=== PATIENT | male | born 1940 | race Caucasian/White ===

== ENCOUNTER 2020-08-04 08:06 | Outpatient (REF) | payer MEDICARE, SELFPAY ==
[2020-08-04 11:17] LABS: Hematocrit 43.9 % (42-52); Hemoglobin 14.2 g/dl (14.0-18.0); Mean Corpuscular HGB Conc 32.3 g/dl (31.0-36.0); Mean Corpuscular Hemoglobin 31.7 pg (27.0-33.0); Mean Platelet Volume 10.7 fL (9.4-12.4); Platelet Count 230 X10*3/uL (160-400); Red Blood Count 4.48 X10*6/uL (4.60-5.80); Red Cell Distribution Width 13.3 % (11.0-16.0); White Blood Count 5.6 X10*3/uL (4.8-10.8)
[2020-08-04 11:47] LABS: Alanine Aminotransferase 17 U/L (0-40); Albumin Level 4.4 g/dL (3.5-5.0); Alkaline Phosphatase 59 U/L (39-117); Anion Gap 14 (12-20); Aspartate Amino Transferase 22 U/L (5-37); Bilirubin Total 1.4 mg/dL (0.0-1.0); Blood Urea Nitrogen 17 mg/dL (9-16); Calcium 9.3 mg/dL (8.4-10.2); Carbon Dioxide 27 mmol/L (22-29); Chloride 103 mmol/L (96-108); Cholesterol 187 mg/dL; Estimated Glomerular Filt Rate > 60; Glucose Fasting 92 mg/dL (60-99); HDL Cholesterol 67 mg/dL; LDL Cholesterol Calculated 113 mg/dl; Potassium 4.5 mmol/L (3.3-5.1); Sodium 139 mmol/L (135-145); Total Protein 7.2 g/dL (6.5-8.0); Triglycerides 39 mg/dL
[2020-08-04 12:10] LABS: Prostate Specific Antigen 1.18 ng/mL (<0.05-4.0)
== END 2020-08-04 08:07 | disposition home or self-care (01) ==
LOC: HO.MANLDS 08:06
PROVIDERS: PCP Internal Medicine; Visit Provider Internal Medicine
DX: Z12.5 Encounter for screening for malignant neoplasm of prostate (principal); I10 Essential (primary) hypertension
CPT/HCPCS: 36415; 80053; 80061; 84153; 85027

== ENCOUNTER 2020-09-15 07:33 | Outpatient (REF) | payer MEDICARE, SELFPAY ==
[2020-09-15 11:56] LABS: Vitamin D 25-OH Total 23.1 ng/mL (>30)
[2020-09-15 12:23] LABS: Vitamin B12 362 pg/mL (200-900)
== END 2020-09-15 07:34 | disposition home or self-care (01) ==
LOC: HO.MANLDS 07:33
PROVIDERS: PCP Internal Medicine; Visit Provider Internal Medicine
DX: E53.8 Deficiency of other specified B group vitamins (principal); E55.9 Vitamin D deficiency, unspecified
CPT/HCPCS: 36415; 82306; 82607

== ENCOUNTER 2021-03-13 07:32 | Outpatient (REF) | payer MEDICARE, SELFPAY ==
[2021-03-13 11:49] LABS: Hematocrit 40.2 % (42-52); Hemoglobin 13.1 g/dl (14.0-18.0); Mean Corpuscular HGB Conc 32.6 g/dl (31.0-36.0); Mean Corpuscular Hemoglobin 33.1 pg (27.0-33.0); Mean Corpuscular Volume 101.5 fL (80-98); Mean Platelet Volume 10.3 fL (9.4-12.4); Platelet Count 239 X10*3/uL (160-400); Red Blood Count 3.96 X10*6/uL (4.60-5.80); Red Cell Distribution Width 13.8 % (11.0-16.0); White Blood Count 5.3 X10*3/uL (4.8-10.8)
[2021-03-13 12:06] LABS: Alanine Aminotransferase 23 U/L (0-40); Albumin Level 4.2 g/dL (3.5-5.0); Alkaline Phosphatase 58 U/L (39-117); Anion Gap 13 (12-20); Aspartate Amino Transferase 30 U/L (5-37); Bilirubin Total 1.1 mg/dL (0.0-1.0); Blood Urea Nitrogen 15 mg/dL (9-16); Calcium 9.2 mg/dL (8.4-10.2); Carbon Dioxide 25 mmol/L (22-29); Chloride 105 mmol/L (96-108); Cholesterol 186 mg/dL; Estimated Glomerular Filt Rate > 60; Glucose Fasting 90 mg/dL (60-99); HDL Cholesterol 86 mg/dL; LDL Cholesterol Calculated 92 mg/dl; Potassium 4.6 mmol/L (3.3-5.1); Sodium 138 mmol/L (135-145); Total Protein 6.8 g/dL (6.5-8.0); Triglycerides 42 mg/dL
[2021-03-13 12:34] LABS: Vitamin B12 362 pg/mL (200-900)
[2021-03-13 12:39] LABS: Vitamin D 25-OH Total 32.4 ng/mL (>30)
[2021-03-13 13:09] LABS: Prostate Specific Antigen 1.14 ng/mL (<0.05-4.0)
== END 2021-03-13 07:33 | disposition home or self-care (01) ==
LOC: HO.MANLDS 07:32
PROVIDERS: PCP Internal Medicine; Visit Provider Internal Medicine
DX: Z12.5 Encounter for screening for malignant neoplasm of prostate (principal); I10 Essential (primary) hypertension; E53.8 Deficiency of other specified B group vitamins; E55.9 Vitamin D deficiency, unspecified
CPT/HCPCS: 36415; 80053; 80061; 82306; 82607; 84153; 85027

== ENCOUNTER 2021-10-10 07:42 | Outpatient (REF) | payer MEDICARE, SELFPAY ==
[2021-10-10 11:23] LABS: MANUAL DIFF FLAG NO
[2021-10-10 11:36] LABS: Basophils Absolute Auto 0.1 X10*3/uL (0.0-0.2); Basophils Percent Auto 0.9 % (0-2); Eosinophils Absolute Auto 0.2 X10*3/uL (0.0-0.4); Eosinophils Percent Auto 3.8 % (0-4); Hematocrit 41.1 % (42.0-52.0); Hemoglobin 13.4 g/dl (14.0-18.0); Imm Gran Abs Auto 0.01 X10*3/uL (0.00-0.03); Imm Gran Pct Auto 0.2 % (0.0-0.4); Lymphocytes Absolute Auto 1.6 X10*3/uL (1.2-4.9); Lymphocytes Percent Auto 29.6 % (20-40); Mean Corpuscular HGB Conc 32.6 g/dl (31.0-36.0); Mean Corpuscular Volume 98.1 fL (80.0-98.0); Mean Platelet Volume 10.5 fL (9.4-12.4); Monocytes Absolute Auto 0.4 X10*3/uL (0.1-1.2); Neutrophils Absolute Auto 3.2 x10*3/uL (2.0-8.3); Neutrophils Percent Auto 57.5 % (45-73); Platelet Count 236 X10*3/uL (160-400); Red Blood Count 4.19 X10*6/uL (4.60-5.80); Red Cell Distribution Width 13.7 % (11.0-16.0); White Blood Count 5.5 X10*3/uL (4.8-10.8)
[2021-10-10 12:08] LABS: Prostate Specific Antigen 1.48 ng/mL (<0.05-4.0); Vitamin D 25-OH Total 19.7 ng/mL (>30)
[2021-10-10 12:10] LABS: Alanine Aminotransferase 25 U/L (0-40); Albumin Level 4.1 g/dL (3.5-5.0); Alkaline Phosphatase 52 U/L (39-117); Anion Gap 10 (12-20); Aspartate Amino Transferase 27 U/L (5-37); Bilirubin Total 2.1 mg/dL (0.0-1.0); Blood Urea Nitrogen 14 mg/dL (9-16); Calcium 9.4 mg/dL (8.4-10.2); Carbon Dioxide 27 mmol/L (22-29); Chloride 103 mmol/L (96-108); Cholesterol 186 mg/dL; Estimated Glomerular Filt Rate > 60; Glucose Fasting 94 mg/dL (60-99); HDL Cholesterol 64 mg/dL; LDL Cholesterol Calculated 112 mg/dl; Potassium 4.2 mmol/L (3.3-5.1); Sodium 136 mmol/L (135-145); Total Protein 6.8 g/dL (6.5-8.0); Triglycerides 50 mg/dL
[2021-10-10 12:12] LABS: Vitamin B12 417 pg/mL (200-900)
== END 2021-10-10 07:43 | disposition home or self-care (01) ==
LOC: HO.MANLDS 07:42
PROVIDERS: PCP Internal Medicine; Visit Provider Internal Medicine
DX: Z00.00 Encounter for general adult medical examination without abnormal findings (principal); Z12.5 Encounter for screening for malignant neoplasm of prostate
CPT/HCPCS: 36415; 80053; 80061; 82306; 82607; 84153; 85025

== ENCOUNTER 2022-04-12 07:46 | Outpatient (REF) | payer MEDICARE, SELFPAY ==
[2022-04-12 11:29] LABS: MANUAL DIFF FLAG NO
[2022-04-12 11:40] LABS: Basophils Absolute Auto 0.1 X10*3/uL (0.0-0.2); Basophils Percent Auto 0.8 % (0-2); Eosinophils Absolute Auto 0.3 X10*3/uL (0.0-0.4); Eosinophils Percent Auto 4.5 % (0-4); Hematocrit 38.3 % (42.0-52.0); Hemoglobin 12.7 g/dl (14.0-18.0); Imm Gran Abs Auto 0.02 X10*3/uL (0.00-0.03); Imm Gran Pct Auto 0.3 % (0.0-0.4); Lymphocytes Absolute Auto 1.6 X10*3/uL (1.2-4.9); Lymphocytes Percent Auto 25.7 % (20-40); Mean Corpuscular HGB Conc 33.2 g/dl (31.0-36.0); Mean Corpuscular Volume 99.5 fL (80.0-98.0); Mean Platelet Volume 10.3 fL (9.4-12.4); Monocytes Absolute Auto 0.5 X10*3/uL (0.1-1.2); Monocytes Percent Auto 8.7 % (2-11); Neutrophils Absolute Auto 3.7 x10*3/uL (2.0-8.3); Platelet Count 272 X10*3/uL (160-400); Red Blood Count 3.85 X10*6/uL (4.60-5.80); White Blood Count 6.2 X10*3/uL (4.8-10.8)
[2022-04-12 12:31] LABS: Alanine Aminotransferase 14 U/L (0-40); Albumin Level 4.3 g/dL (3.5-5.0); Alkaline Phosphatase 51 U/L (39-117); Anion Gap 15 (12-20); Aspartate Amino Transferase 24 U/L (5-37); Bilirubin Total 1.5 mg/dL (0.0-1.0); Blood Urea Nitrogen 20 mg/dL (9-16); Calcium 9.5 mg/dL (8.4-10.2); Carbon Dioxide 25 mmol/L (22-29); Chloride 100 mmol/L (96-108); Cholesterol 188 mg/dL; Estimated Glomerular Filt Rate > 60; Glucose Random 92 mg/dL (60-115); HDL Cholesterol 81 mg/dL; LDL Cholesterol Calculated 98 mg/dl; Potassium 4.8 mmol/L (3.3-5.1); Prostate Specific Antigen 1.42 ng/mL (<0.05-4.0); Sodium 135 mmol/L (135-145); Triglycerides 45 mg/dL; Vitamin D 25-OH Total 54.4 ng/mL (>30)
[2022-04-12 12:46] LABS: Vitamin B12 408 pg/mL (200-900)
== END 2022-04-12 07:47 | disposition home or self-care (01) ==
LOC: HO.MANLDS 07:46
PROVIDERS: Visit Provider Internal Medicine
DX: Z13.89 Encounter for screening for other disorder (principal)
CPT/HCPCS: 36415; 80053; 80061; 82306; 82607; 84153; 85025

== ENCOUNTER 2022-04-24 09:38 | Outpatient (REF) | payer MEDICARE, SELFPAY ==
[2022-04-24 11:17] LABS: MANUAL DIFF FLAG NO
[2022-04-24 11:19] LABS: Basophils Absolute Auto 0.1 X10*3/uL (0.0-0.2); Basophils Percent Auto 0.9 % (0-2); Eosinophils Absolute Auto 0.3 X10*3/uL (0.0-0.4); Eosinophils Percent Auto 3.9 % (0-4); Hematocrit 38.2 % (42.0-52.0); Hemoglobin 12.7 g/dl (14.0-18.0); Imm Gran Abs Auto 0.03 X10*3/uL (0.00-0.03); Imm Gran Pct Auto 0.5 % (0.0-0.4); Lymphocytes Absolute Auto 1.5 X10*3/uL (1.2-4.9); Lymphocytes Percent Auto 22.7 % (20-40); Mean Corpuscular HGB Conc 33.2 g/dl (31.0-36.0); Mean Corpuscular Hemoglobin 32.7 pg (27.0-33.0); Mean Corpuscular Volume 98.5 fL (80.0-98.0); Mean Platelet Volume 10.1 fL (9.4-12.4); Monocytes Absolute Auto 0.5 X10*3/uL (0.1-1.2); Monocytes Percent Auto 7.9 % (2-11); Neutrophils Absolute Auto 4.3 x10*3/uL (2.0-8.3); Neutrophils Percent Auto 64.1 % (45-73); Platelet Count 247 X10*3/uL (160-400); Red Blood Count 3.88 X10*6/uL (4.60-5.80); Red Cell Distribution Width 13.1 % (11.0-16.0); White Blood Count 6.6 X10*3/uL (4.8-10.8)
[2022-04-24 12:31] LABS: Iron 80 mcg/dL (45-160); Percent Iron Saturation 23 % (15-50); Total Iron Binding Capacity 343 mcg/dL (228-428); Unsaturated Iron Binding 263 ug/dL
[2022-04-24 12:53] LABS: Ferritin 89 ng/mL (20-250)
== END 2022-04-24 09:39 | disposition home or self-care (01) ==
LOC: HO.MANLDS 09:38
PROVIDERS: Visit Provider Internal Medicine
DX: D64.9 Anemia, unspecified (principal)
CPT/HCPCS: 36415; 82728; 83540; 85025

== ENCOUNTER 2022-10-21 07:31 | Outpatient (REF) | payer MEDICARE, SELFPAY ==
[2022-10-21 11:41] LABS: Hematocrit 39.4 % (42.0-52.0); Hemoglobin 12.9 g/dl (14.0-18.0); Mean Corpuscular HGB Conc 32.7 g/dl (31.0-36.0); Mean Corpuscular Hemoglobin 32.6 pg (27.0-33.0); Mean Corpuscular Volume 99.5 fL (80.0-98.0); Mean Platelet Volume 10.5 fL (9.4-12.4); Platelet Count 253 X10*3/uL (160-400); Red Blood Count 3.96 X10*6/uL (4.60-5.80); Red Cell Distribution Width 13.8 % (11.0-16.0); White Blood Count 5.2 X10*3/uL (4.8-10.8)
[2022-10-21 12:26] LABS: Alanine Aminotransferase 18 U/L (0-40); Alkaline Phosphatase 70 U/L (39-117); Anion Gap 10 (12-20); Aspartate Amino Transferase 22 U/L (5-37); Blood Urea Nitrogen 15 mg/dL (9-16); Calcium 9.2 mg/dL (8.4-10.2); Carbon Dioxide 28 mmol/L (22-29); Chloride 105 mmol/L (96-108); Estimated Glomerular Filt Rate > 60; Glucose Random 62 mg/dL (60-115); Potassium 4.8 mmol/L (3.3-5.1); Sodium 138 mmol/L (135-145); Total Protein 6.5 g/dL (6.5-8.0)
[2022-10-21 12:48] LABS: Vitamin B12 420 pg/mL (200-900); Vitamin D 25-OH Total 31.2 ng/mL (>30)
== END 2022-10-21 07:32 | disposition home or self-care (01) ==
LOC: HO.MANLDS 07:31
PROVIDERS: Visit Provider Internal Medicine
DX: I10 Essential (primary) hypertension (principal); E55.9 Vitamin D deficiency, unspecified
CPT/HCPCS: 36415; 80053; 82306; 82607; 85027

== ENCOUNTER 2022-12-09 14:56 | Outpatient (REF) | payer MEDICARE, SELFPAY | END 2022-12-09 14:57 | disposition home or self-care (01) | LOC: HO.MANLDS 14:56 | PROVIDERS: Visit Provider Physician Assistant | DX: T14.8XXA Other injury of unspecified body region, initial encounter (principal); W57.XXXA Bitten or stung by nonvenomous insect and other nonvenomous arthropods, initial encounter | CPT/HCPCS: 86618; 86666; 86753 ==

== ENCOUNTER 2023-04-16 07:29 | Outpatient (REF) | payer MEDICARE, SELFPAY ==
[2023-04-16 12:43] LABS: MANUAL DIFF FLAG NO
[2023-04-16 12:47] LABS: Basophils Percent Auto 0.9 % (0-2); Eosinophils Absolute Auto 0.3 X10*3/uL (0.0-0.4); Eosinophils Percent Auto 6.6 % (0-4); Hematocrit 40.2 % (42.0-52.0); Hemoglobin 13.5 g/dl (14.0-18.0); Imm Gran Abs Auto 0.02 X10*3/uL (0.00-0.03); Imm Gran Pct Auto 0.4 % (0.0-0.4); Lymphocytes Absolute Auto 1.5 X10*3/uL (1.2-4.9); Lymphocytes Percent Auto 32.3 % (20-40); Mean Corpuscular HGB Conc 33.6 g/dl (31.0-36.0); Mean Corpuscular Hemoglobin 33.1 pg (27.0-33.0); Mean Corpuscular Volume 98.5 fL (80.0-98.0); Mean Platelet Volume 10.3 fL (9.4-12.4); Monocytes Absolute Auto 0.4 X10*3/uL (0.1-1.2); Monocytes Percent Auto 7.5 % (2-11); Neutrophils Absolute Auto 2.5 x10*3/uL (2.0-8.3); Neutrophils Percent Auto 52.3 % (45-73); Platelet Count 251 X10*3/uL (160-400); Red Blood Count 4.08 X10*6/uL (4.60-5.80); Red Cell Distribution Width 13.2 % (11.0-16.0); White Blood Count 4.7 X10*3/uL (4.8-10.8)
[2023-04-16 13:12] LABS: Alanine Aminotransferase 21 U/L (0-40); Albumin Level 4.3 g/dL (3.5-5.0); Alkaline Phosphatase 58 U/L (39-117); Anion Gap 12 (12-20); Aspartate Amino Transferase 35 U/L (5-37); Bilirubin Total 1.2 mg/dL (0.0-1.0); Blood Urea Nitrogen 14 mg/dL (9-16); Calcium 9.9 mg/dL (8.4-10.2); Carbon Dioxide 25 mmol/L (22-29); Chloride 102 mmol/L (96-108); Cholesterol 187 mg/dL (<200); Estimated Glomerular Filt Rate > 60; Glucose Random 70 mg/dL (60-115); HDL Cholesterol 77 mg/dL (>40); LDL Cholesterol Calculated 99 mg/dL (<100); Potassium 4.4 mmol/L (3.3-5.1); Sodium 135 mmol/L (135-145); Total Protein 7.3 g/dL (6.5-8.0); Triglycerides 59 mg/dL (<150)
== END 2023-04-16 07:30 | disposition home or self-care (01) ==
LOC: HO.MANLDS 07:29
PROVIDERS: Visit Provider Internal Medicine
DX: D64.9 Anemia, unspecified (principal); I10 Essential (primary) hypertension
CPT/HCPCS: 36415; 80053; 80061; 85025

== ENCOUNTER 2023-10-14 07:44 | Outpatient (REF) | payer MEDICARE, SELFPAY ==
[2023-10-14 13:16] LABS: MANUAL DIFF FLAG NO
[2023-10-14 13:32] LABS: Basophils Absolute Auto 0.1 X10*3/uL (0.0-0.2); Basophils Percent Auto 0.9 % (0-2); Eosinophils Absolute Auto 0.4 X10*3/uL (0.0-0.4); Eosinophils Percent Auto 6.5 % (0-4); Hematocrit 41.4 % (42.0-52.0); Hemoglobin 13.4 g/dl (14.0-18.0); Imm Gran Abs Auto 0.02 X10*3/uL (0.00-0.03); Imm Gran Pct Auto 0.4 % (0.0-0.4); Lymphocytes Absolute Auto 1.9 X10*3/uL (1.2-4.9); Lymphocytes Percent Auto 34.8 % (20-40); Mean Corpuscular HGB Conc 32.4 g/dl (31.0-36.0); Mean Corpuscular Volume 98.8 fL (80.0-98.0); Mean Platelet Volume 10.6 fL (9.4-12.4); Monocytes Absolute Auto 0.5 X10*3/uL (0.1-1.2); Monocytes Percent Auto 8.9 % (2-11); Neutrophils Absolute Auto 2.6 x10*3/uL (2.0-8.3); Neutrophils Percent Auto 48.5 % (45-73); Platelet Count 225 X10*3/uL (160-400); Red Blood Count 4.19 X10*6/uL (4.60-5.80); Red Cell Distribution Width 13.8 % (11.0-16.0); White Blood Count 5.4 X10*3/uL (4.8-10.8)
[2023-10-14 13:57] LABS: Alanine Aminotransferase 19 U/L (0-40); Albumin Level 4.2 g/dL (3.5-5.0); Alkaline Phosphatase 61 U/L (39-117); Anion Gap 11 (12-20); Aspartate Amino Transferase 24 U/L (5-37); Bilirubin Total 1.5 mg/dL (0.0-1.0); Blood Urea Nitrogen 21 mg/dL (9-16); Calcium 9.6 mg/dL (8.4-10.2); Carbon Dioxide 29 mmol/L (22-29); Chloride 105 mmol/L (96-108); Cholesterol 172 mg/dL (<200); Estimated Glomerular Filt Rate > 60; Glucose Random 87 mg/dL (60-115); HDL Cholesterol 62 mg/dL (>40); LDL Cholesterol Calculated 96 mg/dL (<100); Potassium 4.4 mmol/L (3.3-5.1); Sodium 141 mmol/L (135-145); Total Protein 7.2 g/dL (6.5-8.0); Triglycerides 74 mg/dL (<150)
== END 2023-10-14 07:45 | disposition home or self-care (01) ==
LOC: HO.MANLDS 07:44
PROVIDERS: Visit Provider Internal Medicine
DX: I10 Essential (primary) hypertension (principal); D64.9 Anemia, unspecified
CPT/HCPCS: 36415; 80053; 80061; 85025

== ENCOUNTER 2024-11-24 08:21 | Outpatient (REF) | payer MEDICARE, SELFPAY ==
--- OUTSIDE RECORDS SUMMARY | 2024-11-24 08:28 | XMS_ITS | Data Portability ---
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) MDM MODERATE MUST MEET 2 OUT OF 3 ELEMENTS: PROBLEMS, DATA OR RISK ELEMENT 1: PROBLEMS ADDRESSED 1 OR MORE CHRONIC ILLNESS WITH EXACERBATION OR 2 OR MORE STABLE CHRONIC ILLNESSES OR 1 UNDIAGNOSED NEW PROBLEM OR 1 ACUTE ILLNESS W/SYMPTOMS OR 1 ACUTE COMPLICATED INJURY ELEMENT 2: DATA MUST MEET 1 OF 3 CATEGORIES CATEGORY 1: REVIEW OF PRIOR EXTERNAL NOTES, REVIEW OF RESULTS, ORDERING OF EACH TEST, ASSESSMENT REQUIRING INDEPENDENT HISTORIAN OR CATEGORY 2: INDEPENDENT INTERPRETATION OF TESTS BY ANOTHER PHYSICIAN OR SPECIALIST OR CATEGORY 3: DISCUSSION OF MGT OR TEST INTERPRETATION W/EXTERNAL PHYSICIAN OR SPECIALIST ELEMENT 3: RISK RISK OF COMPLICATIONS AND/OR MORBIDITY OR MORTALITY OF PATIENT MANAGEMENT PROVIDER MUST THOROUGHLY DOCUMENT EACH ELEMENT THAT IS COVERED Not available 04/25/2023 09:48:30 10/28/2023 10/28/2023 [id number] [place] [id number]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) MDM HIGH MUST MEET 2 OUT OF 3 ELEMENTS: PROBLEMS, DATA OR RISK ELEMENT 1: PROBLEMS 1 OR MORE CHRONIC ILLNESS W/SEVERE EXACERBATION, PROGRESSION MAY REQUIRE HOSPITAL LEVEL CARE OR 1 ACUTE OR CHRONIC ILLNESS OR INJURY THAT POSES A THREAT TO LIFE OR BODILY FUNCTION ELEMENT 2: DATA: MUST MEET 2 OF 3 CATEGORIES CATEGORY 1 REVIEW OF PRIOR EXTERNAL NOTES REVIEW OF THE RESULTS ORDERING OF EACH TEST ASSESSMENT REQUIRING INDEPENDENT HISTORIAN(S) CATEGORY 2: INDEPENDENT INTERPRETATION OF TESTS BY ANOTHER PROVIDER/SPECIALI ST CATEGORY 3: DISCUSSION OF MGT OR TEST INTERPRETATION W/EXTERNAL PHYSICIAN/SPECIAL IST ELEMENT 3: RISK HIGH RISK OF MORBIDITY FROM ADDITIONAL DIAGNOSTIC TESTING OR TREATMENT PROVIDER MUST THOROUGHLY DOCUMENT EACH ELEMENT THAT IS COVERED Not available 10/28/2023 15:21:38 11/04/2023 11/04/2023 [id number] [place] [id number]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 REVIEW OF PRIOR EXTERNAL NOTES/RESULTS, ORDERING OF TEST(S) CATEGORY 2. 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) MDM MODERATE MUST MEET 2 OUT OF 3 ELEMENTS: PROBLEMS, DATA OR RISK ELEMENT 1: PROBLEMS ADDRESSED 1 OR MORE CHRONIC ILLNESS WITH EXACERBATION OR 2 OR MORE STABLE CHRONIC ILLNESSES OR 1 UNDIAGNOSED NEW PROBLEM OR 1 ACUTE ILLNESS W/SYMPTOMS OR 1 ACUTE COMPLICATED INJURY ELEMENT 2: DATA MUST MEET 1 OF 3 CATEGORIES CATEGORY 1: REVIEW OF PRIOR EXTERNAL NOTES, REVIEW OF RESULTS, ORDERING OF EACH TEST, ASSESSMENT REQUIRING INDEPENDENT HISTORIAN OR CATEGORY 2: INDEPENDENT INTERPRETATION OF TESTS BY ANOTHER PHYSICIAN OR SPECIALIST OR CATEGORY 3: DISCUSSION OF MGT OR TEST INTERPRETATION W/EXTERNAL PHYSICIAN OR SPECIALIST ELEMENT 3: RISK RISK OF COMPLICATIONS AND/OR MORBIDITY OR MORTALITY OF PATIENT MANAGEMENT PROVIDER MUST THOROUGHLY DOCUMENT EACH ELEMENT THAT IS COVERED Not available 06/11/2024 09:50:32 09/06/2024 09/06/2024 [id number] [place] [id number]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 REVIEW OF PRIOR EXTERNAL NOTES/RESULTS, ORDERING OF TEST(S) CATEGORY 2. ASSESSMENT REQUIRING INDEPENDENT HISTORIAN(S) INCLUDE WHO THE HISTORIAN IS AND RELATION TO PT AND WHY PT IS UNABLE TO GIVE COMPLETE HISTORY ELEMENT 3: RISK (LOW) RISK OF COMPLICATIONS AND/OR MORBIDITY OR MORTALITY OF PATIENT MANAGEMENT PROVIDER MUST THOROUGHLY DOCUMENT ALL OF THE ELEMENTS COVERED Not available 09/06/2024 15:21:07 Plan of Treatment Reminders Order Date Submit Date Provider Last Modified By Organization Details Last Modified Time Details Appointments FOLLOW UP 15 2024 09:30A M DR BARDALES Not available Not available Not available Lab None recorded. Referral podiatris t referral 2023 024 [email or web address] 10 Sachin Will DPM, [address] [facility], [address], [place], [address], 11/25/2023 09:12:55 orthopedi c surgeon referral - note please drain synovial cyst with magnolia injection if possible already has an appt for the 2022 023 [email or web address] [facility], [address] [place], [address], 05/05/2023 08:40:52 Procedures None recorded. Surgeries None recorded. Imaging US, echocardi ogram, transthor acic, complete, w/ color flow 2023 024 hrubner Not available 11/11/2023 09:06:50 US, echocardi ogram, transthor acic, complete, w/ color flow 2022 023 hrubner Not available 05/09/2023 08:54:11 Medication Orders Cialis 5 mg tablet 2023 024 Not available 06/11/2024 10:00:24 mupirocin 2 % topical ointment 2023 024 [id number], [address] [place], [id number], 06/11/2024 09:31:51 Cialis 5 mg tablet 2022 023 [facility], [address], [place], [address], 04/25/2023 09:49:29 Patient TargetsNo targets recorded. Patient Instructions Encounter Date Encounter Id Patient Instructions Last Modified By Organization Details Last Modified Time 04/25/2023 [id number] aortic valve stenosis: care instructions [email or web address] Not available 04/25/2023 09:42:04 Reason for Referral Orthopedic Surgeon Referral for Synovial cyst of right knee seeing for back and his knee already has appt for the 9 note please drain synovial cyst with magnolia injection if possible already has an appt for the Referring Physician: Taco Bardales, Internal Medicine, Encounter Date: 04/25/2023 Signals Intelligence Analysis Manager Referral for Ulce r of toe Referring Physician: Taco Bardales, Internal Medicine, Encounter Date: 10/28/2023 Results Created Date Observation Date Name Description Value Unit Range Abnormal Flag Note LastModifiedBy Organization Detail LastModifiedTime 04/08/2004/05/2023 MRI, lumba r spine , w/o contr ast No observ ation record ed. [address], [address], 04/25/2023 09:32:39 01/14/20 24 01/14/2024 US, echoc ardio gram No observ ation record ed. [address], [address], 06/11/2024 09:42:34 06/08/20 24 06/03/2024 myoca rdial perfu oscar study w/ eject ion fract ion (PROC ) No observ ation record ed. [facility] [address], [place], [address], 06/11/2024 09:42:34 07/16/19 25 07/15/2023 US, echoc ardio gram, trans thora cic, compl ete, w/ color flow No observ ation record ed. [email or web address] [facility] [address], [place], [address], 07/16/2024 10:53:00 07/21/19 25 06/29/2024 cardi ovajuan lou ss asses sment * No observ ation record ed. [email or web address] [facility] - [address], [place], [address], 07/21/2024 12:22:30 Result Notes None recorded. 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 Not Available [facility] 2 22:57:37 Vitamin D deficien cy 66434545 Active 2020 Not Available [facility] 2 22:57:37 Bilatera l osteoart hritis of knees 93065085036 9107 Active 2020 Not Available [facility] 2 22:57:37 Synovial cyst of knee 216533351 Active 2020 Not Available [facility] 2 22:57:37 Gilbert' s syndrome 59790403 Active 2021 Not Available [facility] 2 22:57:37 Synovial cyst of right knee 84148585284 9104 Active 2021 JAY DELUCA [address] [place], [address], [facility] 2 09:42:54 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 Taco Bardales DO [address] [place] [address], [address], [facility] 2 09:18:11 Strain of hamstrin g muscle 21581474657 4 Active 2021 Taco Bardales DO [address] [place], [address], [facility] 2 09:22:06 Anemia 753763393 Active 2021 Taco Bardales, DO [address] [place] [address], [address], [facility] 2 09:26:29 Primary erectile dysfunct ion 082265007 Active 2021 Taco Bardales, DO [address] [place] [address], [address], [facility] 2 09:28:29 Infectio n of tick bite 172869178 Active 2022 FRANCOIS LIND, JAY [address] [place] [address], [address], [facility] 3 14:48:34 Lumbago with sciatica 030684398 Active 2022 Taco Bardales, DO [address] [place] [address], [address], [facility] 3 14:09:38 Lumbago with sciatica 024352000 Active 2022 Taco Bardales, DO [address] [place] [address], [address], [facility] 3 14:09:41 Weakness of right lower limb Active 2022 Taco Bardales DO [address] [place] [address], [address], [facility] 3 23:32:58 Ulcer of toe 367502823 Active 2023 Taco Bardales DO [address] [place] [address], [address], [facility] 4 15:20:16 Osteoart hritis of right knee joint 42427848583 9100 Active 2024 Taco Bardales DO [address] [place] [address], [address], [facility] 5 15:21:23 [facility] hyperten oscar 20799188 Active 2017 Not Available [facility] 22:57:37 Aortic valve stenosis 44490382 Active 2017 severe with systolic murmur Taco Bardales DO [address] [place] [address], [address], [facility] 4 09:53:53 Problem Notes None recorded. Procedures Surgical History Date Name Laterality Status Provider Name and Address Organization Details Recorded Time 025 Corticosteroid Injection completed Taco Bardales DO [address] [place] [address], [address], [facility] 09/06/2024 15:20:29 023 Corticosteroid Injection completed Taco Bardales DO [address] [place] [address], [address], [facility] 09/02/2022 15:41:21 022 Corticosteroid Injection completed Taco Bardales DO [address] [place] [address], [address], [facility] 10/26/2021 10:00:41 021 Corticosteroid Injection completed Taco TravisBecky JesseDO [address] [place] [address], [address], [facility] 05/21/2021 10:01:29 Imaging Results None recorded. Procedure Notes None recorded. Medical Equipment None Reported. Allergies Allergen ID Allergen Name Allergen Category Reaction Reaction Severity Criticality Documentation Date Start Date Code Code System Note Provider Name and Address Organization Details Recorded Time 2177 amlodipin e medicatio n Not available Not available Not available 02/13/2018 39173 RxNorm Carrie raymond [facility] 8 10:08:32 2178 lisinopri l medicatio n cough Not available Not available 02/13/2018 44028 RxNorm Carrei raymond [facility] 8 10:08:46 Medications Name Sig Start Date Stop Date Status Note LastModified by Organization Details LastModified Time losartan 50 mg tablet take 1 tablet by mouth once daily 04/27 completed Not Available Not Available Not Available atorvastati n 20 mg tablet active Not Available Not Available Not Available Keflex 500 mg capsule Take 1 capsule every 6 hours by oral route for 7 days. 04/24 completed Not Available Not Available Not Available aspirin 81 mg tablet,vineet yed release TAKE 1 TABLET BY MOUTH EVERY DAY active Not Available Not Available No t Available tramadol 50 mg tablet TAKE 1 TABLET BY MOUTH EVERY 6 HOURS FOR 7 DAYS 12/09 completed Not Available Not Available Not Available clotrimazol e-betametha sone 1 %-0.05 % topical cream APPLY TOPICALLY TO THE AFFECTED AREA TWICE DAILY FOR UP TO 2 WEEKS 10/19 completed Not Available Not Available Not Available halobetasol propionate 0.05 % topical cream APPLY THIN LAYER TOPICALLY TO THE AFFECTED AREA EVERY DAY. DO NOT EXCEED 50 GM EVERY WEEK OR 2 WEEKS DURATION 10/30 completed Not Available Not Available Not Available bisacodyl 5 mg tablet,vineet yed release TAKE 4 TABLETS WITH 8 OZ OF CLEAR LIQUIDS. 10/22 completed Not Available Not Available Not Available mupirocin 2 % topical ointment APPLY SMALL AMOUNT TOPICALLY TO THE AFFECTED AREA THREE TIMES DAILY 06/11 completed Not Available Not Available Not Available ketoconazol e 2 % topical cream Apply 1 applicati on every day by topical route for 15 days. 04/27 completed Not Available Not Available Not Available losartan 100 mg tablet TAKE 1 TABLET DAILY active Not Available Not Available No t Available doxycycline hyclate 100 mg tablet TAKE 1 TABLET BY MOUTH TWICE DAILY 04/25 completed Not Available Not Available Not Available Cialis 5 mg tablet Take 1 tablet every day by oral route for 90 days. 2023 active Not Available Not Available Not Avai lable ibuprofen prn 04/24 completed Not Available Not Available Not Available peg 3350-electr olytes 236 gram-22.74 gram-6.74 gram-5.86 gram solution MIX AND DRINK DIRECTED 10/22 completed Not Available Not Available Not Available Fluad 2016- 65yr up(PF)45 mcg(15 mcgx3)/0.5 mL intramuscul ar syringe 04/24 completed Not Available Not Available Not Available Fluzone High-Dose Quad (PF) 240 mcg/0.7 mL IM syringe ADM 0.7ML IM UTD 08/14 completed Not Available Not Available Not Available Vitals Date Recorded Body height Body mass index (BMI) Body weight Heart rate Respiratory rate Oxygen saturation Oxygen saturation in Arterial blood by Pulse oximetry Systolic blood pressure Diastolic blood pressure Provider Name and Address Organization Details Last Updated DateTime 4 175.26 cm 26.2 kg/m2 97940.6 5 g 94 /min 16 /min 97 % 97 % 144 mm[Hg] 88 mm[Hg] Michael Blackmon [facility] 4 14:55:12 Date Recorded Body height Body mass index (BMI) Body weight Heart rate Oxygen saturation Oxygen saturation in Arterial blood by Pulse oximetry Systolic blood pressure Diastolic blood pressure Provider Name and Address Organization Details Last Updated DateTime 3 167.64 cm 28.9 kg/m2 86782.0 3 g 63 /min 98 % 98 % 158 mm[Hg] 62 mm[Hg] Anna Johnston [facility] 3 09:18:38 Date Recorded Systolic blood pressure Diastolic blood pressure Provider Name and Address Organization Details Last Updated DateTime 06/11/2024 132 mm[Hg] 78 mm[Hg] Taco Bardales, DO [address] [place] [address], [place], [address], [facility] 06/11/2024 09:43:26 Date Recorded Body height Body mass index (BMI) Body weight Heart rate Oxygen saturation Oxygen saturation in Arterial blood by Pulse oximetry Systolic blood pressure Diastolic blood pressure Provider Name and Address Organization Details Last Updated DateTime 4 175.26 cm 27 kg/m2 13403.4 g 76 /min 98 % 98 % 162 mm[Hg] 82 mm[Hg] Michael Blackmon [facility] 4 09:33:09 Social History Question Answer Notes LastModified by Organizat ion Details LastModified Time Tobacco Smoking Status Former Smoker Quit [address] [facility] 06/11/2024 09:31:53 What Is Your Level Of Caffeine Consumption? None [id number] Information not available 04/25/2020 What Was The Date Of Your Most Recent Tobacco Screening? 06/11/2024 [email or web address] Information not available 06/11/2024 How Many Years Have You Smoked Tobacco? 15 [id number] Information not available 04/25/2020 Sex: Unknown Functional Status Question Answer Note LastModified by Organizat ion Details LastModified Time What is your level of alcohol consumption? Moderate 3 beers per day [id number] Information not available 04/25/2020 What is your exercise level? Occasional walking [id number] Information not available 04/25/2020 Mental Status None recorded. Family History Nothing Reported. Medical History No medical history recorded. Immunizations Vaccine Type Date Status Note Provider Nam e and Address Organization Details Recorded Time COVID-19, mRNA, LNP-S, PF, 30 mcg/0.3 mL dose 1 completed Not Available [facility] 01/09/2022 22:57:37 Influenza, split virus, quadrivalent, preservative 1 completed Not Available [facility] 01/09/2022 22:57:37 COVID-19, mRNA, LNP-S, PF, 30 mcg/0.3 mL dose 2 completed Not Available [facility] 01/09/2022 22:57:37 Influenza, split virus, quadrivalent, preservative 8 completed Not Available [facility] 01/09/2022 22:57:37 Pneumococcal conjugate PCV 13 6 completed Not Available [facility] 01/09/2022 22:57:37 Influenza, split virus, quadrivalent, preservative 2 completed Taco Bardales DO [address] [place] [address], [address], [facility] 04/24/2022 08:54:46 COVID-19, mRNA, LNP-S, PF, 30 mcg/0.3 mL dose 2 completed Taco Bardales DO [address] [place] [address], [address], [facility] 04/24/2022 08:54:59 Influenza, split virus, quadrivalent, preservative 9 completed Not Available [facility] 01/09/2022 22:57:37 Influenza, split virus, quadrivalent, preservative 0 completed Not Available [facility] 01/09/2022 22:57:37 COVID-19, mRNA, LNP-S, PF, 30 mcg/0.3 mL dose 1 completed Not Available [facility] 01/09/2022 22:57:37 COVID-19, mRNA, LNP-S, PF, 30 mcg/0.3 mL dose 1 completed Not Available [facility] 01/09/2022 22:57:37 Past Encounters Encounter ID Performer Location Encounter Start Date Encounter Closed Date Diagnosis/Indication Diagnosis SNOMED-CT Code Diagnosis ICD10 Code Diagnosis Note [id number] Taco Bardales DO [facility] [address] [facility], [place] [address] 01/06/2018 11:09:27 01/06/2018 12:06:09 Heart murmur 72001855 R01.1 presumably new, not previously documented Edema of foot 707105804 R60.0 ddx: clot, cellulitis , gout, OA response to NSAIDS points to gout/oa, uric acid was added to d-dimer lab written out as computer was frozen and was unable to order during the visit. rest/ice/n saids/comp ression for ongoing foot swelling Cellulitis of lower limb 788159044 L03.119 possible cellulitis , though mild likely entry would be nail fungus as there are no visible foot lesions will treat with keflex to ere on the side of caution and will work up other caues of left foot swelling Essential hypertension 75172009 I10 elevated today even after recheck, will recheck at f/u visit [id number] Taco Bardales DO [facility] [address] [facility], [place] [address] 04/24/2018 11:07:47 04/24/2018 12:11:30 Adult health examination 133503192 Z00.00 doing great cont to remain active no major issues still walking Active or passive immunization 710982055 Z23 recc shingrix [id number] Taco Bardales DO [facility] [address] [facility], [place] [address] 10/26/2018 09:55:51 10/26/2018 10:21:06 Essential hypertension 05940440 I10 bp is goood no isssues at home readings Aortic valve stenosis 60 591243 I35.0 will cont to monitor and plan on getting a repeat echo later in the year [id number] Taco Bardales DO [facility] [address] [facility], [place] [address] 03/26/2019 09:53:03 03/26/2019 12:42:00 Pre-surgery evaluation 757566637 Z01.818 Bilateral cataracts 9572 2004 H26.9 generally low risk, has some mildly elevated BP but we will increase his med and recheck in a month he is cleared for his cataract procedure Essential hypertension 47743157 I10 diastolic mildly elevated, will increase his BP med and recheck next month Aortic valve stenosis 60 357514 I35.0 stable [id number] Taco Bardales DO [facility] [address] [facility], [place] [address] 04/27/2019 09:00:33 04/27/2019 10:04:10 Adult health examination 361537887 Z00.00 doing great cont to remain active cont to walk daily [id number] Taco Bardales DO [facility] [address] [facility], [place] [address] 07/02/2019 09:01:29 07/02/2019 09:54:24 Essential hypertension 67762865 I10 bp is good no issues at home readings Has dropped 7lb and reduced alcohol dramatical ly and improved Spinal ade nosis in cervical region 57330746 M48.02 No neuro sx, occasional pain Vitamin D deficiency 347 42451 E55.9 Slightly deficient rec 1000 IU OTC for 4 weeks Cobalamin deficiency 190 400283 E53.8 B12 was 184 with no megaloblas tic/macroc ytic anemia on CBC recc B12 OTC and will recheck 1 mo [id number] Taco Bardales DO [facility] [address] [facility],[place] [address] 06/28/2020 09:25:51 06/28/2020 11:07:27 Aortic valve stenosis 47267177 I35.0 will cont to monitor and plan on getting a repeat echo later in the year Essential hypertension 98859354 I10 bp is good no issues at home readings Spinal ade nosis in cervical region 87092505 M48.02 No neuro sx, occasional pain [id number] [address] [facility] [address] 08/14/2020 11:03:58 08/14/2020 14:09:58 Essential hypertension 29198790 I10 bp is bouncing around again not taking other otc meds not changing his diet or activity rleates is compliant with meds Cobalamin deficiency 190 898563 E53.8 will need to rechk and see if b12 levels improve Vitamin D deficiency 347 05735 E55.9 Slightly deficient rec 1000 IU OTC for 4 weeks Aortic valve stenosis 60 636365 I35.0 will cont to monitor and plan on getting a repeat echo later in the year Synovial c yst of right knee 3376620007 27498 M71.21 [id number] [facility] [address] [facility],[place] [address] 09/22/2020 09:40:02 09/22/2020 11:00:51 Aortic valve stenosis 28475988 I35.0 echo is excellent will repeat in 2 years Essential hypertension 30511269 I10 bp is much better with less beer intake encouraged to cont but he says he wont fully stop Synovial cyst of knee 24 4379639 M71.21 we will cont to follow he will tell me if its bothering enough to get an ortho eval Cobalamin deficiency 190 116012 E53.8 b 12 was 362 will cont b12 supp for now and see if this drops off in the future necessitat ing inj Vitamin D deficiency 347 08781 E55.9 Slightly deficient rec 1000 IU OTC for 4 weeks then stop level 26 [id number] [facility] [address] [facility] on [place] [address] 04/20/2021 09:40:12 04/20/2021 10:21:14 Essential hypertension 56247121 I10 bp is much better with less beer intake encouraged to cont but he says he wont fully stop Vitamin D deficiency 347 73492 E55.9 Slightly deficient rec 1000 IU OTC for 4 weeks then stop level 26 Bilateral osteoarthritis of knees 4182960749 64504 M17.0 he will opt for a kenalog inj to the right kneewe will order and get him in Spinal ade nosis in cervical region 83190481 M48.02 No neuro sx, occasional pain [id number] Taco Bardales [facility] [address] [facility],[place] [address] 05/21/2021 09:47:25 05/21/2021 10:21:02 Bilateral osteoarthritis of knees 2018278442 87459 M17.0 he will opt for a kenalog inj to the right kneeand he tolerated inj without issue Primary er ectile dysfunction 437247864 N52.9 10505 Taco Bardales [facility] [address] [facility],[place] [address] 10/19/2021 09:26:59 10/19/2021 11:05:32 Essential hypertension 98532801 I10 bp is much better with less beer intake still bounces around diastolic is excellenth e will cont to check at home Vitamin D deficiency 347 12695 E55.9 Slightly deficient rec 1000 IU OTC for 4 weeks then stop level 17 Active or passive immunization 786240521 Z23 advised due for Tdap and second pneumonia. ..insuranc e wont cover the shingles shot he has checked with the pharmacy Gilbert's syndrome 61668 000 E80.4 reassuranc e 77524 Taco Bardales [facility] [address] [facility],[place] [address] 10/26/2021 09:40:26 10/26/2021 10:09:52 Bilateral osteoarthritis of knees 1912899701 18719 M17.0 he will opt for a kenalog inj to the right kneeand he tolerated inj without issue 00656 FRANCOIS LIND [facility] [address] [facility],[place] [address] 01/25/2022 09:28:06 01/25/2022 09:54:14 Synovial cyst of right knee 9459447783 52852 M71.21 will monitor for now Bilateral osteoarthritis of knees 5315992853 10218 M17.0 stable with inj Essential hypertension 79909152 I10 labile 16657 Taco Bardales DO [facility] [address] [facility],[place] [facility] [place] [address] 04/24/2022 08:48:59 04/24/2022 09:49:05 Essential hypertension 51245109 I10 bp is much better with less beer intake still bounces around diastolic is excellenth e will cont to check at home Vitamin D deficiency 347 96496 E55.9 Slightly deficient rec 1000 IU OTC for 4 weeks then stop level 17 Cobalamin deficiency 190 544045 E53.8 b 12 was 362 will cont b12 supp for now and see if this drops off in the future necessitat ing inj Advance care planning 71 1919320 Z71.89 done Active or passive immunization 346155099 Z23 patient advised he is due for flu shot, tdap, pneu 23 & shingles 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,[place] [facility] [place] [address] 09/02/2022 15:13:06 09/02/2022 16:43:10 Synovial cyst of knee 608612570 M71.21 we will cont to follow he will tell me if its bothering enough to get an ortho evalcort inject well tolerated Essential hypertension 98025179 I10 bp is much better with less beer intake still bounces around diastolic is excellenth e will cont to check at home 66463 Taco Bardales DO [facility] [address] [facility],[place] [address] 10/30/2022 08:55:41 10/30/2022 11:50:33 Spinal stenosis in cervical region 32607057 M48.02 No neuro sx, occasional pain Aortic valve stenosis 60 647718 I35.0 echo is excellent will repeat in 2 years Essential hypertension 07085265 I10 bp is much better with less beer intake diastolic is excellenth e will cont to check at home 76844 Taco Bardales [facility] [address] [facility],[place] [address] 12/09/2022 14:18:36 12/09/2022 15:27:12 Infection of tick bite 034050169 W57.XXXA agreed to lab work up for the bug bites (tick specifical ly)it does look like a bit on the back of his leginflame d red spot on the back of the right thigh classic symptoms for tick borne illnesswil l not delay treatment and start on doxy for the next 30 days 58823 Taco Bardales [facility] [address] [facility],[place] [address] 12/20/2022 09:44:00 12/20/2022 12:39:05 Synovial cyst of right knee 1833426282 26592 M71.21 agreed to US knee to confirm diagnosis of Friedman's Cyst Infection of tick bite 060412693 W57.XXXA will request lab work since it is not back yet [id number] Taco Bardales [facility] [address] [facility] on [address],[place] [address] 04/25/2023 09:10:34 04/25/2023 11:54:08 Cobalamin deficiency 238222555 E53.8 b 12 was 362 will cont b12 supp for now and see if this drops off in the future necessitat ing inj Essential hypertension 86644948 I10 bp is much better with less beer intake diastolic is excellenth e will cont to check at home Synovial c yst of right knee 6318633813 15836 M71.21 relates the cbd salve seems to help a bit but truly needs drainage and a magnolia injection Aortic valve stenosis 60 119723 I35.0 echo is excellent will repeat in 2 years Primary er ectile dysfunction 307744104 N52.9 [id number] Taco Bardales [facility] [address] [facility], [place] [address] 10/28/2023 14:46:32 10/28/2023 16:53:56 Vitamin D deficiency 04380615 E55.9 Slightly deficient rec 1000 IU OTC for 4 weeks then stop level 17 Essential hypertension 64708932 I10 bp is much better with less beer intake diastolic is excellenth e will cont to check at home Depression screening 171 706260 Z13.31 Negative Screening Lumbago with sciatica 20 8377759 M54.41 now resolved doing well Moderate a ortic valve stenosis 825625827 I35.0 needs echo Ulcer of toe 168255813 L 97.509 504116 Taco Bardales [facility] [address] [facility],[place] [address] 11/04/2023 10:12:56 11/04/2023 10:30:06 Synovial cyst of knee 579595019 M71.21 we will cont to followcort inject well tolerated [id number] Taco Bardales [facility] [address] [facility],[place] [address] 06/11/2024 09:25:26 06/11/2024 10:03:39 Depression screening 749499290 Z13.31 Negative Screening Aortic valve stenosis 60 472849 I35.0 seen by cardiology and is getting prepped for an aortic valve replacemen t Essential hypertension 66393450 I10 bp is much better with less beer intake diastolic is excellenth e will cont to check at home Gilbert's syndrome 84356 000 E80.4 reassuranc e Primary er ectile dysfunction 339716182 N52.9 [id number] Taco Bardales [facility] [address] [facility] on [address],[place] [address] 09/06/2024 14:39:05 09/06/2024 15:26:32 Osteoarthritis of right knee joint 8114212281 28453 M17.11 cortisone inj well done Health Concerns Section Related Observation LastModified by Organization Detai ls LastModified Time None Recorded Concern Status LastModified by Organization Details LastModified Time None Recorded Advance Directives Directive None Recorded Payers Encounter Date Sequence Insurance Name Policy Number Policy Paige Covered Member ID Paige Member ID Guarantor Name 04/25/2023 1 [place] [employer] [place] Jaron Bowersos [id number] Jaron Bowersos 04/25/2023 2 [place] [id number] Jaron Bowersos [id number] Jaron Bowersos 10/28/2023 1 [place] Jaron Bowersos [id number] Jaron Hollis Pinkos 10/28/2023 2 [place] [id number] Jaron Bowersos [id number] Jaron Bowersos 11/04/2023 1 [place] Jaron Bowersos [id number] 6 Jaron Hollis Pinkos 11/04/2023 2 [place] [id number] Jaron Bowersos [id number] Jaron Bowersos 06/11/2024 1 [place] Jaron Bowersos [id number] 6 Jaron Bowersos 06/11/2024 2 [place] [id number] Jaron Bowersos [id number] 13 Jaron Bowersos 09/06/2024 1 [place] Jaron Bowersos [id number] 6 Jarno Hollis Pinkos 09/06/2024 2 [place] [id number] Jaron Bowersos [id number] Jaron Guzmán Notes Date Note Type Note Provider Name and Address Organization Details Recorded Time 3 text/htm l relates that he is having increased swelling in the knee amd os very sore overall bp at home is running ok occasionally is highbp to day 150/62 Taco Bardales, DO [address] [facility], [place], [address], [facility] 04/25/2023 11:15:45 4 text/htm l Care Management - HypertensionReported bypatient.Prognosis:expe cted outcome: stabilize; prognosis: good Self Care:last visit nov Associated Symptoms:calf muscle cramps here for rechk and is doing okand relates that he did great with [place] and now longer has back painalso had his foot sore and this was corrected and is doing wellnote he had an echo ordered last apr and he was never called never donebps have been a bit all over relates that his bp machine is good Taco Bardales DO [address] [place], [address], [facility] 10/28/2023 15:23:05 4 text/htm l here for magnolia inj Taco Bardales DO [address] [place], [address], [facility] 11/04/2023 10:29:52 4 text/htm l Care Management - HypertensionReported bypatient.Self Care:not under emotional stress Severity:symptoms are improving; does not interfere with daily activities Associated Symptoms:no dizziness; no lightheadedness; no chest pain; no shortness of breath; no palpitations; no edema; no calf muscle cramps; no blurred vision; no confusion; no headaches; no fatigue here for rechkdoing well overall relates that his bp jumps around at timesfeels well overallrelates that he is having more exertional dyspnea than he has in the past Taco Bardales DO [address] [place], [address], [facility] 06/11/2024 10:00:36 5 text/htm l here for magnolia inj right knee last 9 mo Taco Bardales DO [address] [place], [address], [facility] 09/06/2024 15:22:06
[2024-11-24 13:02] LABS: MANUAL DIFF FLAG NO
[2024-11-24 13:07] LABS: Basophils Percent Auto 0.6 % (0-2); Eosinophils Absolute Auto 0.3 X10*3/uL (0.0-0.4); Eosinophils Percent Auto 4.3 % (0-4); Hematocrit 35.9 % (42.0-52.0); Hemoglobin 11.6 g/dl (14.0-18.0); Imm Gran Abs Auto 0.04 X10*3/uL (0.00-0.03); Imm Gran Pct Auto 0.6 % (0.0-0.4); Lymphocytes Absolute Auto 1.5 X10*3/uL (1.2-4.9); Lymphocytes Percent Auto 22.5 % (20-40); Mean Corpuscular HGB Conc 32.3 g/dl (31.0-36.0); Mean Corpuscular Hemoglobin 32.7 pg (27.0-33.0); Mean Corpuscular Volume 101.1 fL (80.0-98.0); Mean Platelet Volume 10.4 fL (9.4-12.4); Monocytes Absolute Auto 0.5 X10*3/uL (0.1-1.2); Monocytes Percent Auto 7.8 % (2-11); Neutrophils Absolute Auto 4.4 x10*3/uL (2.0-8.3); Neutrophils Percent Auto 64.2 % (45-73); Platelet Count 300 X10*3/uL (160-400); Red Blood Count 3.55 X10*6/uL (4.60-5.80); Red Cell Distribution Width 14.5 % (11.0-16.0); White Blood Count 6.8 X10*3/uL (4.8-10.8)
[2024-11-24 15:32] LABS: Alanine Aminotransferase 17 U/L (0-40); Albumin Level 4.3 g/dL (3.5-5.0); Alkaline Phosphatase 61 U/L (39-117); Anion Gap 12 (12-20); Aspartate Amino Transferase 37 U/L (5-37); Bilirubin Total 1.6 mg/dL (0.0-1.0); Blood Urea Nitrogen 22 mg/dL (9-16); Calcium 9.3 mg/dL (8.4-10.2); Carbon Dioxide 23 mmol/L (22-29); Chloride 105 mmol/L (96-108); Cholesterol 126 mg/dL (<200); Estimated Glomerular Filt Rate > 60; Glucose Random 88 mg/dL (60-115); HDL Cholesterol 57 mg/dL (>40); LDL Cholesterol Calculated 61 mg/dL (<100); Sodium 135 mmol/L (135-145); Triglycerides 42 mg/dL (<150)
== END 2024-11-24 08:22 | disposition home or self-care (01) ==
LOC: HO.MANLDS 08:21
PROVIDERS: Visit Provider Internal Medicine
DX: I10 Essential (primary) hypertension (principal); D64.9 Anemia, unspecified
CPT/HCPCS: 36415; 80053; 80061; 85025

== ENCOUNTER 2024-11-26 10:11 | Outpatient (REF) | payer MEDICARE, SELFPAY ==
--- OUTSIDE RECORDS SUMMARY | 2024-11-26 10:58 | XMS_ITS | Continuity of Care Document ---
Author Organization [place] - [facility], [facility] Address [address] [place] [address] [place] [address] Assessment Encounter Date Assessment Date Assessment LastModified by Organization Details LastModified Time 11/26/2024 11/26/2024 [id number] or [id number] (PRINTING TABLE HAND) MDM HIGH MUST MEET 2 OUT OF [...] THOROUGHLY DOCUMENT EACH ELEMENT THAT IS COVERED The patient presented to their appointment today for multiple concerns requiring moderate to high-level decision making and took over 40-45 minutes for an adequate and appropriate history, exam, assessment and treatment plan. This appointment was done with an established patient. Not available 11/26/2024 10:09:48 Plan of Treatment Reminders Order Date Submit Date Provider Last Modified By Organization Details Last Modified Time Details Appointments FOLLOW UP 15 2024 09:30A M DR BARDALES Not available Not available Not available Lab vitamin B12 + folate, serum or blood 2024 025 [facility], [address] [place] [address], [place], [address], 11/26/2024 10:14:59 Referral None recorded. Procedures None recorded. Surgeries None recorded. Imaging MRI, lumbar spine, w/o contrast 2024 025 [facility], [address] [facility], [place], [address], 11/26/2024 10:08:12 Medication Orders None recorded. Patient TargetsNo targets recorded. Patient Instructions Encounter Date Encounter Id Patient Instructions Last Modified By Organization Details Last Modified Time 11/26/2024 [id number] lumbar spinal stenosis: care instructions Not available 11/26/2024 10:07:05 anemia: care instructions Not available 11/26/2024 10:08:13 aortic valve stenosis: care instructions Not available 11/26/2024 10:07:05 Reason for Referral None Reported. Problems Name Problem SNOMED Code Status Onset Date Resolution Date Notes Provider Name and Address Organization Details Recorded Time Spinal stenosis in cervical region 61318855 Active 2017 Not Available [facility] 2 22:57:37 Cellulit is 824433667 Active 2017 right foot/leg Not Available [facility] 2 22:57:37 Cobalami n deficien cy 118700631 Active 2020 Not Available [facility] 2 22:57:37 Vitamin D deficien cy 45059367 Active 2020 Not Available [facility] 2 22:57:37 Bilatera l osteoart hritis of knees 22093849229 9107 Active 2020 Not Available [facility] 2 22:57:37 Synovial cyst of knee 294788493 Active 2020 Not Available [facility] 2 22:57:37 Gilbert' s syndrome 66084688 Active 2021 Not Available [facility] 2 22:57:37 Synovial cyst of right knee 07048455485 9104 Active 2021 JAY DELUCA [address] [place], [address], [facility] 09:42:54 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 Taco Bardales DO [address] [place] [address], [address], [facility] 2 09:18:11 Strain of hamstrin g muscle 80691749995 4 Active 2021 Taco AngyBecky Bardales, DO [address] [place] [address], [address], [facility] 2 09:22:06 Anemia 526224222 Active 2021 Taco AngyBecky Bardales, DO [address] [place] [address], [address], [facility] 2 09:26:29 Primary erectile dysfunct ion 782286009 Active 2021 Taco Bardales, DO [address] [place] [address], [address], [facility] 2 09:28:29 Infectio n of tick bite 084916556 Active 2022 JAY DELUCA [address] [place] [address], [address], [facility] 3 14:48:34 Lumbago with sciatica 527711528 Active 2022 Taco Bardales, DO [address] [place] [address], [address], [facility] 3 14:09:38 Lumbago with sciatica 790830791 Active 2022 Taco Badrales, DO [address] [place] [address], [address], [facility] 3 14:09:41 Weakness of right lower limb Active 2022 Taco Bardales DO [address] [place] [address], [address], [facility] 3 23:32:58 Ulcer of toe 370479707 Active 2023 Taco Bardales, DO [address] [place] [address], [address], [facility] 4 15:20:16 Osteoart hritis of right knee joint 62318079884 9100 Active 2024 Tcao Bardales DO [address] [place] [address], [address], [facility] 5 15:21:23 Retroper itoneal hemorrha ge 30240447 Active 2024 Taco Bardales DO [address] [place] [address], [address], [facility] 5 10:03:28 Spinal stenosis of lumbar region 36132394 Active 2024 Taco Bardales DO [address] [place] [address], [address], [facility] 5 10:05:13 Essentia l hyperten oscar 61321904 Active 2017 Not Available [facility] 2 22:57:37 Aortic valve stenosis 76225642 Active 2017 severe with systolic murmur Taco Bardales DO [address] [place] [address], [address], [facility] 4 09:53:53 Problem Notes None recorded. Procedures Surgical History Date Name Laterality Status Provider Name and Address Organization Details Recorded Time 025 Corticosteroid Injection completed Taco Bardales DO [address] [place] [address], [address], [facility] 09/06/2024 15:20:29 023 Corticosteroid Injection completed Taco Bardales DO [address] [place] [address], [address], [facility] 09/02/2022 15:41:21 022 Corticosteroid Injection completed Taco Bardales DO [address] [place] [address], [address], [facility] 10/26/2021 10:00:41 021 Corticosteroid Injection completed Taco Bardales DO [address] [facility], [place], [address], [facility] 05/21/2021 10:01:29 Imaging Results None recorded. Procedure Notes None recorded. Medical Equipment None Reported. Allergies Allergen ID Allergen Name Allergen Category Reaction Reaction Severity Criticality Documentation Date Start Date Code Code System Note Provider Name and Address Organization Details Recorded Time 2177 amlodipin e medicatio n Not available Not available Not available 02/13/2018 85613 RxNorm Carrie raymond [facility] 8 10:08:32 2179 lisinopri l medicatio n cough Not available Not available 02/13/2018 37003 RxNorm Carrie raymond [facility] 8 10:08:46 Medications Name Sig Start Date [...] completed Not Available Not Available Not Available clopidogrel 75 mg tablet Take 1 tablet every day by oral route as directed. active Not Available Not Available No t Available aspirin 81 mg tablet,vineet yed release [...] completed Not Available Not Available Not Available metoprolol succinate ER 25 mg tablet,exte nded release 24 hr Take 1 tablet every day by oral route as directed. active Not Available Not Available No t Available ketoconazol e 2 % topical cream [...] completed Not Available Not Available Not Available vitamin B12 1,000 mcg-folic acid [address] 1 lozenge every day by sublingua l route. active Not Available Not Available No t Available Fluad 2016- 65yr up(PF)45 mcg(15 mcgx3)/0.5 [...] and Address Organization Details Last Updated DateTime 5 175.26 cm 26.6 kg/m2 34679.0 6 g 68 /min 97 % 97 % 126 mm[Hg] 72 mm[Hg] Argentina Ball [facility] 5 09:38:58 Social History Question Answer Notes LastModified by Organizat ion Details LastModified Time Tobacco Smoking Status Former Smoker Quit 1975 [facility] 06/11/2024 09:31:53 What Is Your Level Of Caffeine Consumption? None [id number] Information not available 04/25/2020 What Was The Date Of Your Most Recent Tobacco Screening? 11/26/2024 [email or web address] Information not available 11/26/2024 How Many Years Have You Smoked Tobacco? 15 [id number] Information not available 04/25/2020 Sex: Unknown Functional Status Question Answer Note LastModified by Organizat ion Details LastModified Time What is your level of alcohol consumption? Moderate 3 beers per day [id number] Information not available 04/25/2020 What is your exercise level? Occasional walking [id number] Information not available 04/25/2020 Mental Status None recorded. Family History Nothing Reported. Medical History No medical history recorded. Immunizations Vaccine Type Date Status Note Provider Nam e and Address Organization Details Recorded Time COVID-19, mRNA, LNP-S, PF, 30 mcg/0.3 mL dose 1 completed Not Available [facility] 01/09/2022 22:57:37 Influenza, split virus, quadrivalent, preservative 1 completed Not Available [facility] 01/09/2022 22:57:37 COVID-19, mRNA, LNP-S, PF, 30 mcg/0.3 mL dose 2 completed Not Available [facility] 01/09/2022 22:57:37 Influenza, split virus, quadrivalent, preservative 8 completed Not Available [facility] 01/09/2022 22:57:37 Pneumococcal conjugate PCV 13 6 completed Not Available [facility] 01/09/2022 22:57:37 Influenza, split virus, quadrivalent, preservative 2 completed Taco Bardales DO [address] [place] [address], [place], [address], [facility] 04/24/2022 08:54:46 COVID-19, mRNA, LNP-S, PF, 30 mcg/0.3 mL dose 2 completed Taco Bardales DO [address] [place] [address], [address], [facility] 04/24/2022 08:54:59 Influenza, split virus, quadrivalent, preservative 9 completed Not Available [facility] 01/09/2022 22:57:37 Influenza, split virus, quadrivalent, preservative 0 completed Not Available [facility] 01/09/2022 22:57:37 COVID-19, mRNA, LNP-S, PF, 30 mcg/0.3 mL dose 1 completed Not Available [facility] 01/09/2022 22:57:37 COVID-19, mRNA, LNP-S, PF, 30 mcg/0.3 mL dose 1 completed Not Available [facility] 01/09/2022 22:57:37 Past Encounters Encounter ID Performer Location Encounter Start Date Encounter Closed Date Diagnosis/Indication Diagnosis SNOMED-CT Code Diagnosis ICD10 Code Diagnosis Note [id number] Taco Bardales DO [facility] [address] [facility],[place] [address] 11/26/2024 09:29:20 11/26/2024 10:37:48 Depression screening 666502239 Z13.31 Negative Screening Essential hypertension 09396691 I10 bp is much better with less beer intake diastolic is excellenth e will cont to check at home Vitamin D deficiency 347 86688 E55.9 Slightly deficient rec 1000 IU OTC for 4 weeks then stop level 17 Osteoarthr itis of right knee joint 4742204491 21364 M17.11 cortisone inj well done Aortic valve stenosis 60 093268 I35.0 seen by cardiology and is getting prepped for an aortic valve replacemen t Retroperit duran hemorrhage 31570824 K68.3 from card cath got 1 prbc Spinal ade nosis of lumbar region 19501133 M48.062 Anemia 125290721 D64.9 prob all from the retro bleed but will chk B12 etc Health Concerns Section Related Observation LastModified by Organization Detai ls LastModified Time None Recorded Concern Status LastModified by Organization Details LastModified Time None Recorded Payers Encounter Date Sequence Insurance Name Policy Number Policy Paige Covered Member ID Paige Member ID Guarantor Name 11/26/2024 1 [place] [employer] Jaron Guzmán [id number] Jaron Guzmán 11/26/2024 2 [place] [id number] Jaron Bowersbrandon [id number] Jaron Telma Arielle Notes Date Note Type Note Provider Name and Address Organization Details Recorded Time 11/27/19 25 text/htm l Care Management - HypertensionReported bypatient.Self Care:not under emotional stress Severity:symptoms are improving; does not interfere with daily activities Associated Symptoms:no dizziness; no lightheadedness; no chest pain; no shortness of breath; no palpitations; no edema; no calf muscle cramps; no blurred vision; no confusion; no headaches; no fatigueMusculoskeletal PainReported bypatient.Location:pain is not radiating Severity:improving Associated Symptoms:no fever; no weak limbs; no tingling; no numbness of the legs/feet; no incontinence ADL (Activities of Daily Living)improve with medication feels good no cp pos sob with any exertionenergy is good until he exerts then get tired easily 'home bps are excellenthad a card cath in september 6 weeks ago complicated by a signif retro peritoneal bleed received 1 unit prbc doing well overall relates that his bp jumps around at timesfeels well overallrelates that he is having more exertional dyspnea than he has in the past Taco Bardales, [address] [facility], [place], [address], [facility] 11/26/2024 10:37:46
[2024-11-26 14:33] LABS: Folate 6.9 ng/mL (> or = 4.0); Vitamin B12 467 pg/mL (200-900)
== END 2024-11-26 10:12 | disposition home or self-care (01) ==
LOC: HO.MANLDS 10:11
PROVIDERS: Visit Provider Internal Medicine
DX: D64.9 Anemia, unspecified (principal)
CPT/HCPCS: 36415; 82607; 82746

== ENCOUNTER 2025-03-16 18:04 | Outpatient (REF) | payer MEDICARE, SELFPAY ==
--- OUTSIDE RECORDS SUMMARY | 2025-03-11 13:00 | XMS_ITS | Encounter Summary ---
Author Organization [facility] Address [address] [place] [phone] Phone Care Team Providers Care Hydro Mechanic Name Role Phone Taco Molina DO Primary Care Provider [phone] Reason for Visit * Reason Comments CR Assessment * Consultation (Within 2 weeks) - New Request Specialty Diagnoses / Procedures Referred By Janis novak Referred To Contact Cardiac Rehabilitation Diagnoses Aortic valve disorder Nadir Bourgeois MD [address] [place] [address] Phone: tel: fax: [email or web address] [address] [place] [address] Phone: tel: Referral ID Status Reason Start Date Expiration Date V isits Requested Visits Authorized [id number] New Request 03/11/2025 03/11/2026 1 1 Encounter Details Date Type Department Care Team (Late st Contact Info) Description 03/11/2025 1:00 PM EDT Office Visit [facility] [address] [place] [address] Tcao Molina DO [address] [facility] [place] [address] [place] [address] [email or web address] S/P TAVR (transcatheter aortic valve replacement) (Primary Dx); 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 Not on sherif e 10/18/2022 Are you concerned about learning? Not on file 10/18/2022 No 10/18/2022 No 10/18/2022 Digital Access Answer Date Recorded No 11/18/2022 No 11/18/2022 Reliable internet access at home? Not on file 11/18/2022 Device with a working camera? Not on file Intimate Partner Violence Answer Date R ecorded Are you denied basic needs s uch as food, clothing, or medical care? No 07/03/2022 In the past 12 months have y ou been in a relationship with a person who hurts, threatens, or tries to control you? No 07/03/2022 Are you denied basic needs s uch as food, clothing, or medical care? No 07/03/2022 In the past 12 months have y ou been in a relationship with a person who hurts, threatens, or tries to control you? No 07/03/2022 Sex and Gender Information Value Date Recorded Sex Assigned at Male 01/09/2022 2:31 PM EDT Legal Sex Male 10:11 PM EDT Gender Identity Male 01/09/2022 2:31 PM EDT Sexual Orientation Straight 01/09/2022 2: 31 PM EDT documented as of this encounter Last Filed Vital Signs Vital Sign Reading Time Taken Comments Blood Pressure 134/70 03/11/2025 1:54 PM EDT Pulse 78 03/11/2025 1:54 PM EDT Temperature - - Respiratory Rate 18 03/11/2025 1:54 PM EDT Oxygen Saturation 98% 03/11/2025 1:54 PM EDT Inhaled Oxygen Concentration - - Weight 77.1 kg (170 lb) 03/11/2025 1:54 PM EDT Height - - Body Mass Index 24.39 02/18/2025 9:51 AM EDT documented in this encounter Progress Notes * Kala Molina RN - 03/11/2025 1:00 PM EDT Today was Thomas's intake for cardiac rehab. He recently was being worked up for a TAVR when they did his cardiac cath they found a vessel that needed to be stented. He had the stent placed in October. He did not do cardiac rehab at that time as he was getting ready for his next procedure. He had the TAVRin January and has been feeling well since. His only complaint is slight SOB on exertion. He was NS with PVC on monitor today He follows a very Mediterranean diet. He eats lots of fish veggies and fruit. He drinks decaf coffee. He does have 2 beers or a glass of wine daily. He has great support with his family and friends. He has minimal stress. He sleeps well His goal is to build endurance and strength and we will support that goal with weekly prescription changes and cont to increase the prescription weekly as he tolerates. We discussed his spinal stenosis and knee issues and we will work to make sure those do not get irritated documented in this encounter Plan of Treatment Upcoming Encounters Date Type Department Care Team (Late st Contact Info) Description 12/27/2024 Procedure Pass Echo Lab [facility] [address] [place] [address] 03/18/2025 7:15 AM EDT Office Visit [facility] Cardiopulmonary Rehabilitation [address] [place] [address] Nadir Bourgeois MD [address] [place] [address] 38450 03/21/2025 7:15 AM EDT Office Visit [facility] Cardiopulmonary Rehabilitation [address] [place] [address] 36770 Nadir Bourgeois MD [address] [place] [address] 66824 03/23/2025 7:15 AM EDT Office Visit [facility] Cardiopulmonary Rehabilitation [address] [place] [address] 967[address] Nadir Bourgeois MD [address] [place] [address] 42508 03/25/2025 7:15 AM EDT Office Visit [facility] Cardiopulmonary Rehabilitation [address] [place] [address] Nadir Bourgeois MD [address] [place] [address] [phone] 03/28/2025 7:15 AM EDT Office Visit [facility] Cardiopulmonary Rehabilitation [address] [place] [address] 84686 Nadir Borugeois MD [address] [place] [address] [phone] 03/30/2025 7:15 AM EDT Office Visit [facility] Cardiopulmonary Rehabilitation [address] [place] [address] Nadir Bourgeois MD [address] [place] [address] 96987 04/01/2025 7:15 AM EDT Office Visit [facility] Cardiopulmonary Rehabilitation [address] [place] [address] 8[address] Nadir Bourgeois MD [address] [place] [address] 49008 04/04/2025 7:15 AM EDT Office Visit [facility] Cardiopulmonary Rehabilitation [address] [place] [address] 94565 Nadir Bourgeois MD [address] [place] [address] 24920 04/06/2025 7:15 AM EDT Office Visit [facility] Cardiopulmonary Rehabilitation [address] [place] [address] 21177 Nadir Bourgeois MD [address] [place] [address] 28023 04/08/2025 7:15 AM EDT Office Visit [facility] Cardiopulmonary Rehabilitation [address] [place] [address] Nadir Bourgeois MD [address] [place] [address] 36392 04/11/2025 7:15 AM EDT Office Visit [facility] Cardiopulmonary Rehabilitation [address] [place] [address] Nadir Bourgeois MD [address] [place] [address] 18291 04/13/2025 7:15 AM EDT Office Visit [facility] Cardiopulmonary Rehabilitation [address] [place] [address] Nadir Bourgeois MD [address] [place] [address] 94480 04/15/2025 7:15 AM EDT Office Visit [facility] Cardiopulmonary Rehabilitation [address] [place] [address] Nadir Bourgeois MD [address] [place] [address] 97951 04/18/2025 7:15 AM EDT Office Visit [facility] Cardiopulmonary Rehabilitation [address] [place] [address] Nadir Bourgeois MD [address] [place] [address] 20096 04/20/2025 7:15 AM EDT Office Visit [facility] Cardiopulmonary Rehabilitation [address] [place] [address] Nadir Bourgeois MD [address] [place] [address] [phone] 04/20/2025 2:00 PM EDT Office Visit [facility] [address] [facility] 3rd Floor, [address] [place] [address] Macrina Pearson DNP [address] [facility], [address] [place] [address] 04/22/2025 7:15 AM EDT Office Visit [facility] Cardiopulmonary Rehabilitation [address] [place] [address] Nadir Bourgeois MD [address] [place] [address] 33395 04/25/2025 7:15 AM EST Office Visit [facility] Cardiopulmonary Rehabilitation [address] [place] [address] Nadir Bourgeois MD [address] [place] [address] 38879 04/27/2025 7:15 AM EST Office Visit [facility] Cardiopulmonary Rehabilitation [address] [place] [address] Nadir Bourgeois MD [address] [place] [address] 31844 04/29/2025 7:15 AM EST Office Visit [facility] Cardiopulmonary Rehabilitation [address] [place] [address] Nadir Bourgeois MD [address] [place] [address] 82772 05/02/2025 7:15 AM EST Office Visit [facility] Cardiopulmonary Rehabilitation [address] [place] [address] Nadir Bourgeois MD [address] [place] [address] 35150 05/04/2025 7:15 AM EST Office Visit [facility] Cardiopulmonary Rehabilitation [address] [place] [address] 96[address] Nadir Bourgeois MD [address] [place] [address] 65236 05/06/2025 7:15 AM EST Office Visit [facility] Cardiopulmonary Rehabilitation [address] [place] [address] 00664 Nadir Bourgeois MD [address] [place] [address] 23059 05/09/2025 7:15 AM EST Office Visit [facility] Cardiopulmonary Rehabilitation [address] [place] [address] 627[address] Nadir Bourgeois MD [address] [place] [address] [phone] 05/11/2025 7:15 AM EST Office Visit [facility] Cardiopulmonary Rehabilitation [address] [place] [address] 80703 Nadir Bourgeois MD [address] [place] [address] 73730 05/13/2025 7:15 AM EST Office Visit [facility] Cardiopulmonary Rehabilitation [address] [place] [address] 81794 Nadir Bourgeois MD [address] [place] [address] 33086 05/16/2025 7:15 AM EST Office Visit [facility] Cardiopulmonary Rehabilitation [address] [place] [address] Nadir Bourgeois MD [address] [place] [address] 97149 05/18/2025 7:15 AM EST Office Visit [facility] Cardiopulmonary Rehabilitation [address] [place] [address] 85381 Nadir Bourgeois MD [address] [place] [address] 27172 05/20/2025 7:15 AM EST Office Visit [facility] Cardiopulmonary Rehabilitation [address] [place] [address] 83936 Nadir Bourgeois MD [address] [place] [address] 64352 05/23/2025 7:15 AM EST Office Visit [facility] Cardiopulmonary Rehabilitation [address] [place] [address] 50924 Nadir Bourgeois MD [address] [place] [address] 92950 05/25/2025 7:15 AM EST Office Visit [facility] Cardiopulmonary Rehabilitation [address] [place] [address] 859[address] Nadir Bourgeois MD [address] [place] [address] 79844 05/27/2025 7:15 AM EST Office Visit [facility] Cardiopulmonary Rehabilitation [address] [place] [address] 80104 Nadir Bourgeois MD [address] [place] [address] 18996 05/30/2025 7:15 AM EST Office Visit [facility] Cardiopulmonary Rehabilitation [address] [place] [address] Nadir Bourgeois MD [address] [place] [address] 82131 06/01/2025 7:15 AM EST Office Visit [facility] Cardiopulmonary Rehabilitation [address] [place] [address] Nadir Bourgeois MD [address] [place] [address] 45877 06/03/2025 7:15 AM EST Office Visit [facility] Cardiopulmonary Rehabilitation [address] [place] [address] Nadir Bourgeois MD [address] [place] [address] 53389 08/23/2025 8:20 AM EST Office Visit [facility] [address] [place] [address], [address] [place] [address] Jaden Taveras MD [address] [place] [address] 33740 09/02/2025 8:40 AM EDT Office Visit [facility] [address] [place] [address], [address] [place] [address] Nadir Bourgeois MD [address] [place] [address] 82969 10/31/2025 10:15 AM EDT Appointment Echo Lab [place] [address] [place] [address] Nadir Bourgeois MD [address] [place] [address] [phone] 11/11/2025 11:20 AM EDT Office Visit [facility] [address] [facility], [address] [place] [address]26 Nadir Bourgeois MD [address] [place] [phone] Scheduled Referrals Name Type Priority Associated Diagnoses Order Schedule Ambulatory referral to [facility] Cardiac Rehab Outpatient Referral Routine Aortic valve disorder Ordered: 03/11/2025 documented as of this encounter Visit Diagnoses Diagnosis 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 into left anterior descending (LAD) artery documented in this encounter Additional Health Concerns Assessment Noted Time PHQ-9 Depression Total Score: 1 03/11/20 1:55 PM EDT documented as of this encounter Care Teams Hydro Mechanic Relationship Specialty Start Date End Date Taco Molina DO [address] [place] [phone] [email or web address] PCP - General Internal Medicine 01/26/25 documented as of this encounter Additional Source Comments The information contained in this document represents components of the legal health record. It is not the complete legal health record.[facility]
--- OUTSIDE RECORDS SUMMARY | 2025-03-14 07:15 | XMS_ITS | Encounter Summary ---
Author Organization [facility] Address [address] [place] [address] [place] [address] Phone Care Team Providers Care Seed Cone Picker Name Role Phone Taco Molina Primary Care Provider [phone] Reason for Visit * Reason Comments Exercise Encounter Details Date Type Department Care Team (Latest Contact Info) Description 03/14/2025 7:15 AM EDT Office Visit [facility] [address] [place] [address] Nadir Bourgeois MD [address] [place] [phone] S/P TAVR (transcatheter aortic valve replacement) (Primary [...] PM EDT documented as of this encounter Progress Notes * Kala Molina RN - 03/14/2025 7:15 AM EDT See scanned document documented in this encounter Plan of Treatment Upcoming Encounters Date Type Department Care Team (Late st Contact Info) Description 12/27/2024 Procedure Pass Echo Lab [address] [place] [address] 03/18/2025 7:15 AM EDT Office Visit [facility] Cardiopulmonary Rehabilitation [address] [place] [address] 7[address] Nadir Bourgeois MD [address] [place] [address] 84055 03/21/2025 7:15 AM EDT Office Visit [facility] Cardiopulmonary Rehabilitation [address] [place] [address] 49170 Nadir Bourgeois MD [address] [place] [address] 65211 03/23/2025 7:15 AM EDT Office Visit [facility] Cardiopulmonary Rehabilitation [address] [place] [address] 79646 Nadir Bourgeois MD [address] [place] [address] 62232 03/25/2025 7:15 AM EDT Office Visit [facility] Cardiopulmonary Rehabilitation [address] [place] [address] Nadir Bourgeois MD [address] [place] [address] 92894 03/28/2025 7:15 AM EDT Office Visit [facility] Cardiopulmonary Rehabilitation [address] [place] [address] 57304 Nadir Bourgeois MD [address] [place] [address] 57066 03/30/2025 7:15 AM EDT Office Visit [facility] Cardiopulmonary Rehabilitation [address] [place] [address] Nadir Bourgeois MD [address] [place] [address] 59208 04/01/2025 7:15 AM EDT Office Visit [facility] Cardiopulmonary Rehabilitation [address] [place] [address] 19384 Nadir Bourgeois MD [address] [place] [address] 40828 04/04/2025 7:15 AM EDT Office Visit [facility] Cardiopulmonary Rehabilitation [address] [place] [address] Nadir Bourgeois MD [address] [place] [address] 83984 04/06/2025 7:15 AM EDT Office Visit [facility] Cardiopulmonary Rehabilitation [address] [place] [address] 83618 Nadir Bourgeois MD [address] [place] [address] 38859 04/08/2025 7:15 AM EDT Office Visit [facility] Cardiopulmonary Rehabilitation [address] [place] [address] Nadir Bourgeois MD [address] [place] [address] 04948 04/11/2025 7:15 AM EDT Office Visit [facility] Cardiopulmonary Rehabilitation [address] [place] [address] Nadir Bourgeois MD [address] [place] [address] 27173 04/13/2025 7:15 AM EDT Office Visit [facility] Cardiopulmonary Rehabilitation [address] [place] [address] Nadir Bourgeois MD [address] [place] [address] 42947 04/15/2025 7:15 AM EDT Office Visit [facility] Cardiopulmonary Rehabilitation [address] [place] [address] Nadir Bourgeois MD [address] [place] [address] 73356 04/18/2025 7:15 AM EDT Office Visit [facility] Cardiopulmonary Rehabilitation [address] [place] [address] Nadir Bourgeois MD [address] [place] [address] 69619 04/20/2025 7:15 AM EDT Office Visit [facility] Cardiopulmonary Rehabilitation [address] [place] [address] 75714 Nadir Bourgeois MD [address] [place] [address] 44473 04/20/2025 2:00 PM EDT Office Visit [facility] [address] [place] [address] 3rd Floor, [address] [place] [address] Macrina Pearson DNP [address] [facility], [address] [place] [address] 77660 04/22/2025 7:15 AM EDT Office Visit [facility] Cardiopulmonary Rehabilitation [address] [place] [address] 78875 Nadir Bourgeois MD [address] [place] [address] 44924 04/25/2025 7:15 AM EST Office Visit [facility] Cardiopulmonary Rehabilitation [address] [place] [address] Nadir Bourgeois MD [address] [place] [address] 33640 04/27/2025 7:15 AM EST Office Visit [facility] Cardiopulmonary Rehabilitation [address] [place] [address] Nadir Bourgeois MD [address] [place] [address] 40761 04/29/2025 7:15 AM EST Office Visit [facility] Cardiopulmonary Rehabilitation [address] [place] [address] Nadir Bourgeois MD [address] [place] [address] 97510 05/02/2025 7:15 AM EST Office Visit [facility] Cardiopulmonary Rehabilitation [address] [place] [address] Nadir Bourgeois MD [address] [place] [address] 84772 05/04/2025 7:15 AM EST Office Visit [facility] Cardiopulmonary Rehabilitation [address] [place] [address] 00827 Nadir Bourgeois MD [address] [place] [address] 54369 05/06/2025 7:15 AM EST Office Visit [facility] Cardiopulmonary Rehabilitation [address] [place] [address] 21268 Nadir Bourgeois MD [address] [place] [address] 38355 05/09/2025 7:15 AM EST Office Visit [facility] Cardiopulmonary Rehabilitation [address] [place] [address] 17412 Nadir Bourgeois MD [address] [place] [address] 84023 05/11/2025 7:15 AM EST Office Visit [facility] Cardiopulmonary Rehabilitation [address] [place] [address] 61531 Nadir Bourgeois MD [address] [place] [address] 57382 05/13/2025 7:15 AM EST Office Visit [facility] Cardiopulmonary Rehabilitation [address] [place] [address] 47529 Nadir Bourgeois MD [address] [place] [address] 42547 05/16/2025 7:15 AM EST Office Visit [facility] Cardiopulmonary Rehabilitation [address] [place] [address] 69361 Nadir Bourgeois MD [address] [place] [address] 67135 05/18/2025 7:15 AM EST Office Visit [facility] Cardiopulmonary Rehabilitation [address] [place] [address] 23818 Nadir Bourgeois MD [address] [place] [address] 24828 05/20/2025 7:15 AM EST Office Visit [facility] Cardiopulmonary Rehabilitation [address] [place] [address] 61201 Nadir Bourgeois MD [address] [place] [address] 09505 05/23/2025 7:15 AM EST Office Visit [facility] Cardiopulmonary Rehabilitation [address] [place] [address] 39888 Nadir Bourgeois MD [address] [place] [address] 54483 05/25/2025 7:15 AM EST Office Visit [facility] Cardiopulmonary Rehabilitation [address] [place] [address] 83599 Nadir Bourgeois MD [address] [place] [address] 10318 05/27/2025 7:15 AM EST Office Visit [facility] Cardiopulmonary Rehabilitation [address] [place] [address] 50343 Nadir Bourgeois MD [address] [place] [address] 76820 05/30/2025 7:15 AM EST Office Visit [facility] Cardiopulmonary Rehabilitation [address] [place] [address] 70385 Nadir Bourgeois MD [address] [place] [address] 55039 06/01/2025 7:15 AM EST Office Visit [facility] Cardiopulmonary Rehabilitation [address] [place] [address] Nadir Bourgeois MD [address] [place] [address] 22644 06/03/2025 7:15 AM EST Office Visit [facility] Cardiopulmonary Rehabilitation [address] [place] [address] Nadir Bourgeois MD [address] [place] [address] 66791 08/23/2025 8:20 AM EST Office Visit [facility] [address], [address] [place] [address] 6[address] Jaden Taveras MD [address] [place] [address] 17960 09/02/2025 8:40 AM EDT Office Visit [facility] [address] [place] [address], [address] [place] [address] 80243 Nadir Bourgeois MD [address] [place] [address] 84563 10/31/2025 10:15 AM EDT Appointment Echo Lab [address] [place] [address] Nadir Bourgeois MD [address] [place] [address] 18106 11/11/2025 11:20 AM EDT Office Visit [facility] [address] [place] [address], [address] [place] [address] 38339 Nadir Bourgeois MD [address] [place] [address] 68720 documented as of this encounter Visit Diagnoses Diagnosis 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 into left anterior descending (LAD) artery documented in this encounter Additional Health Concerns Assessment Noted Time PHQ-9 Depression Total Score: 1 03/11/20 25 1:55 PM EDT documented as of this encounter Care Teams Seed Cone Picker Relationship Specialty Start Date End Date Taco Molina DO [address] [place] [address] [email or web address] PCP - General Internal Medicine 01/26/25 documented as of this encounter Additional Source Comments The information contained in this document represents components of the legal health record. It is not the complete legal health record.[facility]
--- OUTSIDE RECORDS SUMMARY | 2025-03-16 07:15 | XMS_ITS | Encounter Summary ---
Author Organization [facility] Address [address] [place] [address] Phone Care Team Providers Care Water Service Supervisor Name Role Phone Taco Molina Primary Care Provider [phone] Reason for Visit * Reason Comments Exercise Encounter Details Date Type Department Care Team (Latest Contact Info) Description 03/16/2025 7:15 AM EDT Office Visit [facility] [address] [place] [address] Nadir Bourgeois MD [address] [place] [address] S/P TAVR (transcatheter aortic valve replacement) (Primary [...] as of this encounter Progress Notes * Jeane Mo RN - 03/16/2025 7:15 AM EDT See scanned document documented in this encounter Plan of Treatment Upcoming Encounters Date Type Department Care Team (Late st Contact Info) Description 12/27/2024 Procedure Pass Echo Lab [address] [place] [address] 03/18/2025 7:15 AM EDT Office Visit [facility] Cardiopulmonary Rehabilitation [address] [place] [address] Nadir Bourgeois MD [address] [place] [address] 16[address] 03/21/2025 7:15 AM EDT Office Visit [facility] Cardiopulmonary Rehabilitation [address] [place] [address] Nadir Bourgeois MD [address] [place] [address] 6[address] 03/23/2025 7:15 AM EDT Office Visit [facility] Cardiopulmonary Rehabilitation [address] [place] [address] 7[address] Nadir Bourgeois MD [address] [place] [address] 69072 03/25/2025 7:15 AM EDT Office Visit [facility] Cardiopulmonary Rehabilitation [address] [place] [address] Nadir Bourgeois MD [address] [place] [address] 35586 03/28/2025 7:15 AM EDT Office Visit [facility] Cardiopulmonary Rehabilitation [address] [place] [address] Nadir Bourgeois MD [address] [place] [address] 32633 03/30/2025 7:15 AM EDT Office Visit [facility] Cardiopulmonary Rehabilitation [address] [place] [address] Nadir Bourgeois MD [address] [place] [address] 28568 04/01/2025 7:15 AM EDT Office Visit [facility] Cardiopulmonary Rehabilitation [address] [place] [address] Nadir Bourgeois MD [address] [place] [address] 29546 04/04/2025 7:15 AM EDT Office Visit [facility] Cardiopulmonary Rehabilitation [address] [place] [address] Nadir Bourgeois MD [address] [place] [address] 52867 04/06/2025 7:15 AM EDT Office Visit [facility] Cardiopulmonary Rehabilitation [address] [place] [address] Nadir Bourgeois MD [address] [place] [address] 04110 04/08/2025 7:15 AM EDT Office Visit [facility] Cardiopulmonary Rehabilitation [address] [place] [address] Nadir Bourgeois MD [address] [place] [address] 72889 04/11/2025 7:15 AM EDT Office Visit [facility] Cardiopulmonary Rehabilitation [address] [place] [address] Nadir Bourgeois MD [address] [place] [address] 14570 04/13/2025 7:15 AM EDT Office Visit [facility] Cardiopulmonary Rehabilitation [address] [place] [address] Nadir Bourgeois MD [address] [place] [address] 80118 04/15/2025 7:15 AM EDT Office Visit [facility] Cardiopulmonary Rehabilitation [address] [place] [address] Nadir Bourgeosi MD [address] [place] [address] 16219 04/18/2025 7:15 AM EDT Office Visit [facility] Cardiopulmonary Rehabilitation [address] [place] [address] Nadir Bourgeois MD [address] [place] [address] 90136 04/20/2025 7:15 AM EDT Office Visit [facility] Cardiopulmonary Rehabilitation [address] [place] [address] Nadir Bourgeois MD [address] [place] [address] 75828 04/20/2025 2:00 PM EDT Office Visit [facility] [address] [place] [address] 3rd Floor, [address] [place] [address] Macrina Pearson DNP [address] [facility], [address] [place] [address] 6[address] 04/22/2025 7:15 AM EDT Office Visit [facility] Cardiopulmonary Rehabilitation [address] [place] [address] Nadir Bourgeois MD [address] [place] [address] 02339 04/25/2025 7:15 AM EST Office Visit [facility] Cardiopulmonary Rehabilitation [address] [place] [address] Nadir Bourgeois MD [address] [place] [address] 53150 04/27/2025 7:15 AM EST Office Visit [facility] Cardiopulmonary Rehabilitation [address] [place] [address] Nadir Bourgeois MD [address] [place] [address] 45408 04/29/2025 7:15 AM EST Office Visit [facility] Cardiopulmonary Rehabilitation [address] [place] [address] Nadir Bourgeois MD [address] [place] [address] 36371 05/02/2025 7:15 AM EST Office Visit [facility] Cardiopulmonary Rehabilitation [address] [place] [address] Nadir Bourgeois MD [address] [place] [address] 10065 05/04/2025 7:15 AM EST Office Visit [facility] Cardiopulmonary Rehabilitation [address] [place] [address] 11699 Nadir Bourgeois MD [address] [place] [address] 23440 05/06/2025 7:15 AM EST Office Visit [facility] Cardiopulmonary Rehabilitation [address] [place] [address] Nadir Bourgeois MD [address] [place] [address] 93573 05/09/2025 7:15 AM EST Office Visit [facility] Cardiopulmonary Rehabilitation [address] [place] [address] Nadir Bourgeois MD [address] [place] [address] 61523 05/11/2025 7:15 AM EST Office Visit [facility] Cardiopulmonary Rehabilitation [address] [place] [address] Nadir Bourgeois MD [address] [place] [address] 09883 05/13/2025 7:15 AM EST Office Visit [facility] Cardiopulmonary Rehabilitation [address] [place] [address] 85[address] Nadir Bourgeois MD [address] [place] [address] 97094 05/16/2025 7:15 AM EST Office Visit [facility] Cardiopulmonary Rehabilitation [address] [place] [address] 884[address] Nadir Bourgeois MD [address] [place] [address] 18249 05/18/2025 7:15 AM EST Office Visit [facility] Cardiopulmonary Rehabilitation [address] [place] [address] 7[address] Nadir Bourgeois MD [address] [place] [address] 60782 05/20/2025 7:15 AM EST Office Visit [facility] Cardiopulmonary Rehabilitation [address] [place] [address] 548[address] Nadir Bourgeois MD [address] [place] [address] 48405 05/23/2025 7:15 AM EST Office Visit [facility] Cardiopulmonary Rehabilitation [address] [place] [address] 66871 Nadir Bourgeois MD [address] [place] [address] 79647 05/25/2025 7:15 AM EST Office Visit [facility] Cardiopulmonary Rehabilitation [address] [place] [address]36[address] Nadir Bourgeois MD [address] [place] [address] 64426 05/27/2025 7:15 AM EST Office Visit [facility] Cardiopulmonary Rehabilitation [address] [place] [address] 71469 Nadir Bourgeois MD [address] [place] [address] 69324 05/30/2025 7:15 AM EST Office Visit [facility] Cardiopulmonary Rehabilitation [address] [place] [address] 60270 Nadir Bourgeois MD [address] [place] [address] 62620 06/01/2025 7:15 AM EST Office Visit [facility] Cardiopulmonary Rehabilitation [address] [place] [address] Nadir Bourgeois MD [address] [place] [address] 08342 06/03/2025 7:15 AM EST Office Visit [facility] Cardiopulmonary Rehabilitation [address] [place] [address] Nadir Bourgeois MD [address] [place] [address] 86097 08/23/2025 8:20 AM EST Office Visit [facility] [address] 3rd [facility], [address] [place] [address] Jaden Taveras MD [address] [place] [address] 86491 09/02/2025 8:40 AM EDT Office Visit [facility] [address] [facility] Floor, [address] [place] [address] Nadir Bourgeois MD [address] [place] [address] 98814 10/31/2025 10:15 AM EDT Appointment Echo Lab [place] [address] [place] [address] Nadir Bourgeois MD [address] [place] [address] 98867 11/11/2025 11:20 AM EDT Office Visit [facility] [address] 3rd Floor, [address] [place] [address] Nadir Bourgeois MD [address] [place] [address] [email or web address] documented as of this encounter Visit Diagnoses Diagnosis 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 into left anterior descending (LAD) artery documented in this encounter Additional Health Concerns Assessment Noted Time PHQ-9 Depression Total Score: 1 03/11/20 25 1:55 PM EDT documented as of this encounter Care Teams Water Service Supervisor Relationship Specialty Start Date End Date Taco Molina DO [address] [place] [phone] [email or web address] PCP - General Internal Medicine 01/26/25 documented as of this encounter Additional Source Comments The information contained in this document represents components of the legal health record. It is not the complete legal health record.[facility]
--- OUTSIDE RECORDS SUMMARY | 2025-03-16 18:11 | XMS_ITS | Encounter Summary ---
Author Organization [facility] Address [address] [place] [address] [place] [address] Phone Care Team Providers Care Reel System Operator Name Role Phone Taco Molina DO Primary Care Provider [phone] Taco Molina Primary Care Provider [phone] Encounter Details Date Type Department Care Team (Late st Contact Info) Description 01/06/2018 Ancillary Orders Virtual Department [address] [place] [address] Yobany Madeline, DESTINY [address] [place] [address] Heart murmur; Cardiac murmur, unspecified Social History Tobacco Use Types Packs/Day Years Used Date Smoking Tobacco: Former Cigarettes Q uit: 07/06/1970 Smokeless Tobacco: Never Alcohol Use Standard Drinks/Week Comments Yes 21 (1 standard drink = 0.6 oz pu re alcohol) Sex and Gender Information Value Date Recorded Sex Assigned at Male 01/09/2022 2:31 PM EDT Legal Sex Male 10:11 PM EDT Gender Identity Male 01/09/2022 2:31 PM EDT Sexual Orientation Straight 01/09/2022 2: 31 PM EDT documented as of this encounter Plan of Treatment Upcoming Encounters Date Type Department Care Team (Late st Contact Info) Description 12/27/2024 Procedure Pass Echo Lab Jer [address] [place] [address] 03/18/2025 7:15 AM EDT Office Visit [facility] [address] [place] [address] Nadir Bourgeois MD [address] [place] [address] 32072 03/21/2025 7:15 AM EDT Office Visit [facility] Cardiopulmonary Rehabilitation [address] [place] [address] Nadir Bourgeois MD [address] [place] [address] 92444 03/23/2025 7:15 AM EDT Office Visit [facility] Cardiopulmonary Rehabilitation [address] [place] [address] Nadir Bourgeois MD [address] [place] [address] 65546 03/25/2025 7:15 AM EDT Office Visit [facility] Cardiopulmonary Rehabilitation [address] [place] [address] Nadir Bourgeois MD [address] [place] [address] 33572 03/28/2025 7:15 AM EDT Office Visit [facility] Cardiopulmonary Rehabilitation [address] [place] [address] 98[address] Nadir Bourgeois MD [address] [place] [address] 01767 03/30/2025 7:15 AM EDT Office Visit [facility] Cardiopulmonary Rehabilitation [address] [place] [address] Nadir Bourgeois MD [address] [place] [address] 95257 04/01/2025 7:15 AM EDT Office Visit [facility] Cardiopulmonary Rehabilitation [address] [place] [address] Nadir Bourgeois MD [address] [place] [address] 23167 04/04/2025 7:15 AM EDT Office Visit [facility] Cardiopulmonary Rehabilitation [address] [place] [address] Nadir Bourgeois MD [address] [place] [address] 90894 04/06/2025 7:15 AM EDT Office Visit [facility] Cardiopulmonary Rehabilitation [address] [place] [address] Nadir Bourgeois MD [address] [place] [address] 22316 04/08/2025 7:15 AM EDT Office Visit [facility] Cardiopulmonary Rehabilitation [address] [place] [address] Nadir Bourgeois MD [address] [place] [address] 71929 04/11/2025 7:15 AM EDT Office Visit [facility] Cardiopulmonary Rehabilitation [address] [place] [address] Nadir Bourgeois MD [address] [place] [address] 08316 04/13/2025 7:15 AM EDT Office Visit [facility] Cardiopulmonary Rehabilitation [address] [place] [address] Nadir Bourgeois MD [address] [place] [address] 35930 04/15/2025 7:15 AM EDT Office Visit [facility] Cardiopulmonary Rehabilitation [address] [place] [address] Nadir Bourgeois MD [address] [place] [address] 90365 04/18/2025 7:15 AM EDT Office Visit [facility] Cardiopulmonary Rehabilitation [address] [place] [address] Nadir Bourgeois MD [address] [place] [address] 43316 04/20/2025 7:15 AM EDT Office Visit [facility] Cardiopulmonary Rehabilitation [address] [place] [address] Nadir Bourgeois MD [address] [place] [address] 77316 04/20/2025 2:00 PM EDT Office Visit [facility] [address] [place] [address], [address] [address] Macrina Pearson DNP [address] [place] [address] 36842 04/22/2025 7:15 AM EDT Office Visit [facility] Cardiopulmonary Rehabilitation [address] [place] [address] Nadir Bourgeois MD [address] [place] [address] 36697 04/25/2025 7:15 AM EST Office Visit [facility] Cardiopulmonary Rehabilitation [address] [place] [address] Nadir Bourgeois MD [address] [place] [address] 87088 04/27/2025 7:15 AM EST Office Visit [facility] Cardiopulmonary Rehabilitation [address] [place] [address] Nadir Bourgeois MD [address] [place] [address] 86156 04/29/2025 7:15 AM EST Office Visit [facility] Cardiopulmonary Rehabilitation [address] [place] [address] 61688 Nadir Bourgeois MD [address] [place] [address] 31014 05/02/2025 7:15 AM EST Office Visit [facility] Cardiopulmonary Rehabilitation [address] [place] [address] 40841 Nadir Bourgeois MD [address] [place] [address] 95796 05/04/2025 7:15 AM EST Office Visit [facility] Cardiopulmonary Rehabilitation [address] [place] [address] Nadir Bourgeois MD [address] [place] [address] 63249 05/06/2025 7:15 AM EST Office Visit [facility] Cardiopulmonary Rehabilitation [address] [place] [address] 55442 Nadir Bourgeois MD [address] [place] [address] 88076 05/09/2025 7:15 AM EST Office Visit [facility] Cardiopulmonary Rehabilitation [address] [place] [address] Nadir Bourgeois MD [address] [place] [address] 92234 05/11/2025 7:15 AM EST Office Visit [facility] Cardiopulmonary Rehabilitation [address] [place] [address] Nadir Bourgeois MD [address] [place] [address] 03479 05/13/2025 7:15 AM EST Office Visit [facility] Cardiopulmonary Rehabilitation [address] [place] [address] 60496 Nadir Bourgeois MD [address] [place] [address] 96482 05/16/2025 7:15 AM EST Office Visit [facility] Cardiopulmonary Rehabilitation [address] [place] [address] 79443 Nadir Bourgeois MD [address] [place] [address] 40241 05/18/2025 7:15 AM EST Office Visit [facility] Cardiopulmonary Rehabilitation [address] [place] [address] 33528 Nadir Bourgeois MD [address] [place] [address] 90620 05/20/2025 7:15 AM EST Office Visit [facility] Cardiopulmonary Rehabilitation [address] [place] [address] 29232 Nadir Bourgeois MD [address] [place] [address] 50736 05/23/2025 7:15 AM EST Office Visit [facility] Cardiopulmonary Rehabilitation [address] [place] [address] 11439 Nadir Bourgeois MD [address] [place] [address] 16551 05/25/2025 7:15 AM EST Office Visit [facility] Cardiopulmonary Rehabilitation [address] [place] [address] 16959 Nadir Bourgeois MD [address] [place] [address] 68150 05/27/2025 7:15 AM EST Office Visit [facility] Cardiopulmonary Rehabilitation [address] [place] [address] 97081 Nadir Bourgeois MD [address] [place] [address] 95199 05/30/2025 7:15 AM EST Office Visit [facility] Cardiopulmonary Rehabilitation [address] [place] [address] 03148 Nadir Bourgeois MD [address] [place] [address] 08980 06/01/2025 7:15 AM EST Office Visit [facility] Cardiopulmonary Rehabilitation [address] [place] [address] 04667 Nadir Bourgeois MD [address] [place] [address] 92308 06/03/2025 7:15 AM EST Office Visit [facility] Cardiopulmonary Rehabilitation [address] [place] [address] 62021 Nadir Bourgeois MD [address] [place] [address] 32987 08/23/2025 8:20 AM EST Office Visit [facility] [address] [place] [address] 3rd Floor, [address] [place] [address] Jaden Taveras MD [address] [place] [address] 93981 09/02/2025 8:40 AM EDT Office Visit [facility] [address] Floor, [address] [place] [address] Nadir Bourgeois MD [address] [place] [address] 05782 10/31/2025 10:15 AM EDT Appointment Echo Lab [address] [place] [address] Nadir Bourgeois MD [address] [place] [address] 11/11/2025 11:20 AM EDT Office Visit [facility] [address] Floor, [address] [place] [address] Nadir Bourgeois MD [address] [place] [address] 73701 documented as of this encounter Results * TTE COMPREHENSIVE (01/12/2018 10:40 AM EDT) Body Surface Area 1.9 m2 Height 175 m Weight 77 kg Systolic BP 145 mmHg Diastolic BP 85 mmHg Left Atrium Dimension Anterior-Posterior 32 15 - 40 mm Aortic Valve Peak Velocity 2,140.00 mm/s Aortic Valve Peak Gradient 18.00 mmHg Aortic Sinus Diameter 35 mm Ascending Aorta Diameter 38 mm Inferior Vena Cava Diameter 19 0.0 - 21 mm Interventricular Septum Thickness 9 mm Left Ventricle Internal Diameter End Diastole 55 42 - 58 mm Left Ventricle Internal Diameter End Systole 29 25 - 40 mm Left Ventricular Outflow Tract Diameter 22.00 mm LVOT VTI REST 237.00 mm Left Ventricular Outflow Tract Velocity 1,110.00 mm/s Left Ventricular Outflow Tract Gradient at Rest 5.00 mmHg Left Ventricular Posterior Wall Thickness 9 mm Ejection Fraction 75 50 - 75 Percent Mitral Valve Deceleration Time 373.00 ms Mitral Valve A Wave Speed 1,010.00 mm/s Mitral Valve E Wave Speed 818.00 mm/s Tricuspid Valve Peak Velocity 2.70 mm/s Raw LV EF% 72 % Aortic Valve Sinus Index 1 18 20 - 32 mm Ascending Aorta Diameter 20 mm Aortic Sinus Index 18 mm Ascending Aorta Index 20 mm Mitral Valve Ea Septal Wave Speed 5.6 cm/s Mitral Valve Ea Lateral Wave Speed 8.1 cm/s Aortic Valve Mean Gradient 9 mmHg Anatomical Region Laterality Modality Heart Ultrasound Narrative 01/12/2018 11:19 AM EDT The left ventricular cavity size and wall thickness are normal. Left ventricular systolic function is normal The estimated ejection fraction is 75% Left ventricular diastolic function appears within normal limits for age There is restricted aortic leaflet opening consistent with mild valvular aortic stenosis. Mildly elevated pulmonary pressure No prior studies for comparison. Left Ventricle The left ventricular cavity size and wall thickness are normal. Left ventricular systolic function is normal. There are no segmental left ventricular wall motion abnormalities noted. There is no evidence of diffuse left ventricular hypokinesis. The estimated ejection fraction is 75% (Normal 50-75%). The left ventricular ejection fraction was measured by visual estimate. Left ventricular diastolic function appears within normal limits for age. There is no evidence of left ventricular thrombus. Right Ventricle The right ventricular size is normal. No evidence of right ventricular hypertrophy. The right ventricular systolic function is normal. Left Atrium The left atrium is normal in size. The left atrial anterior-posterior dimension measures 32 mm (normal 15-40 mm). The pulmonary venous flow profiles are normal. Right Atrium The right atrium is normal in size. The IVC was poorly seen. The IVC measures 19 mm (normal <=21 mm). The IVC demonstrates reduced collapse with inspiration which is consistent with elevated RA pressure. Mitral Valve The mitral valve appears normal. E/A ratio is 0.8. E/E' avg is 11.8. There is no evidence of mitral stenosis. There is trace mitral regurgitation detected by spectral and color Doppler. Tricuspid Valve The tricuspid valve appears normal. There is no evidence of tricuspid stenosis. Peak TR is 2.7 m/s. Peak PG is 29 mmHg. Assuming a RAP of 8 mmHg, RVSP is 37 mmHg. Mildly elevated pulmonary pressure. There is evidence of mild tricuspid regurgitation by color and spectral Doppler. Aortic Valve The aortic valve appears abnormal. The aortic valve is tricuspid. There is thickening of multiple aortic leaflets. There is restricted aortic leaflet opening consistent with mild valvular aortic stenosis. The peak aortic valve gradient is 18 mmHg. The mean aortic gradient is 9 mmHg. There is no evidence of aortic regurgitation by color and spectral Doppler. The visualized portions of the thoracic aorta appear normal. Pulmonic Valve Pulmonary valve was not well visualized. The pulmonary valve appears normal. There is no evidence of pulmonic stenosis. There is no evidence of pulmonary regurgitation by color and spectral Doppler. Pericardium There is no evidence of pericardial effusion. Interatrial Septum The interatrial septum appears normal. General Findings The image quality was good (2). Color flow Doppler and Spectral Doppler used in the evaluation. Comparison Findings No prior studies for comparison. September Yobany DIXON CV ECHO ORDERABLES Final Res ult documented in this encounter Visit Diagnoses Diagnosis Heart murmur Undiagnosed cardiac murmurs Cardiac murmur, unspecified Heart murmur Undiagnosed cardiac murmurs Cardiac murmur, unspecified documented in this encounter Care Teams Reel System Operator Relationship Specialty Start Date End Date Taco Molina DO [email or web address] PCP - General Internal Medicine 11/11/17 01/25/25 Taco Molina DO [address] [place] [address] PCP - General Internal Medicine 01/26/25 documented as of this encounter Additional Source Comments The information contained in this document represents components of the legal health record. It is not the complete legal health record.[facility]
--- OUTSIDE RECORDS SUMMARY | 2025-03-16 18:11 | XMS_ITS | Encounter Summary ---
Author Organization [facility] Address [address] [place] [address] [place] [address] Phone Care Team Providers Care Cash Grain Farmer Name Role Phone Taco Molina Primary Care Provider [phone] DilipTaco norman Primary Care Provider Encounter Details Date Type Department Care Team (Late st Contact Info) Description 08/04/2024 Procedure Pass Echo Lab [address] [place] [address] Social History Tobacco Use Types Packs/Day Years [...] Info) Description 12/27/2024 Procedure Pass Echo Lab [address] [place] [address] 03/18/2025 7:15 AM EDT Office Visit [facility] Cardiopulmonary Rehabilitation [address] [place] [address] 9[address] Nadir Bourgeois MD [address] [place] [address] 23880 03/21/2025 7:15 AM EDT Office Visit [facility] Cardiopulmonary [address] [address] Nadir Bourgeois MD [address] [place] [address] 78690 03/23/2025 7:15 AM EDT Office Visit [facility] Cardiopulmonary Rehabilitation [address] [place] [address] 27260 Nadir Bourgeois MD [address] [place] [address] 13902 03/25/2025 7:15 AM EDT Office Visit [facility] Cardiopulmonary Rehabilitation [address] [place] [address] 03446 Nadir Bourgeois MD [address] [place] [address] 59112 03/28/2025 7:15 AM EDT Office Visit [facility] Cardiopulmonary Rehabilitation [address] [place] [address] Nadir Bourgeois MD [address] [place] [address] 22251 03/30/2025 7:15 AM EDT Office Visit [facility] Cardiopulmonary Rehabilitation [address] [place] [address] Nadir Bourgeois MD [address] [place] [address] 52589 04/01/2025 7:15 AM EDT Office Visit [facility] Cardiopulmonary Rehabilitation [address] [place] [address] Nadir Bourgeois MD [address] [place] [address] 19251 04/04/2025 7:15 AM EDT Office Visit [facility] Cardiopulmonary Rehabilitation [address] [place] [address] Nadir Bourgeois MD [address] [place] [address] 73157 04/06/2025 7:15 AM EDT Office Visit [facility] Cardiopulmonary Rehabilitation [address] [place] [address] Nadir Bourgeois MD [address] [place] [address] 34002 04/08/2025 7:15 AM EDT Office Visit [facility] Cardiopulmonary Rehabilitation [address] [place] [address] Nadir Bourgeois MD [address] [place] [address] 56836 04/11/2025 7:15 AM EDT Office Visit [facility] Cardiopulmonary Rehabilitation [address] [place] [address] Nadir Bourgeois MD [address] [place] [address] 59055 04/13/2025 7:15 AM EDT Office Visit [facility] Cardiopulmonary Rehabilitation [address] [place] [address] Nadir Bourgeois MD [address] [place] [address] 84628 04/15/2025 7:15 AM EDT Office Visit [facility] Cardiopulmonary Rehabilitation [address] [place] [address] Nadir Bourgeois MD [address] [place] [address] 25365 04/18/2025 7:15 AM EDT Office Visit [facility] Cardiopulmonary Rehabilitation [address] [place] [address] 48[address] Nadir Bourgeois MD [address] [place] [address] 21998 04/20/2025 7:15 AM EDT Office Visit [facility] Cardiopulmonary Rehabilitation [address] [place] [address] 26270 Nadir Bourgeois MD [address] [place] [address] 23772 04/20/2025 2:00 PM EDT Office Visit [facility] [address] [place] [address] [address]rd Floor, [address] [place] [address] Macrina Pearson DNP [address] [place] [address], [address] [address] 04/22/2025 7:15 AM EDT Office Visit [facility] Cardiopulmonary Rehabilitation [address] [place] [address] Nadir Bourgeois MD [address] [place] [address] 10566 04/25/2025 7:15 AM EST Office Visit [facility] Cardiopulmonary Rehabilitation [address] [place] [address] 11318 Nadir Bourgeois MD [address] [place] [address] 79520 04/27/2025 7:15 AM EST Office Visit [facility] Cardiopulmonary Rehabilitation [address] [place] [address] 58473 Nadir Bourgeois MD [address] [place] [address] 86481 04/29/2025 7:15 AM EST Office Visit [facility] Cardiopulmonary Rehabilitation [address] [place] [address] 21256 Nadir Bourgeois MD [address] [place] [address] 03509 05/02/2025 7:15 AM EST Office Visit [facility] Cardiopulmonary Rehabilitation [address] [place] [address] 02064 Nadir Bourgeois MD [address] [place] [address] 04998 05/04/2025 7:15 AM EST Office Visit [facility] Cardiopulmonary Rehabilitation [address] [place] [address] 88524 Nadir Bourgeois MD [address] [place] [address] 45102 05/06/2025 7:15 AM EST Office Visit [facility] Cardiopulmonary Rehabilitation [address] [place] [address] 39905 Nadir Bourgeois MD [address] [place] [address] 26576 05/09/2025 7:15 AM EST Office Visit [facility] Cardiopulmonary Rehabilitation [address] [place] [address] Nadir Bourgeois MD [address] [place] [address] 46218 05/11/2025 7:15 AM EST Office Visit [facility] Cardiopulmonary Rehabilitation [address] [place] [address] Nadir Bourgeois MD [address] [place] [address] 42075 05/13/2025 7:15 AM EST Office Visit [facility] Cardiopulmonary Rehabilitation [address] [place] [address] Nadir Bourgeois MD [address] [place] [address] 00328 05/16/2025 7:15 AM EST Office Visit [facility] Cardiopulmonary Rehabilitation [address] [place] [address] 936[address] Nadir Bourgeois MD [address] [place] [address] 18517 05/18/2025 7:15 AM EST Office Visit [facility] Cardiopulmonary Rehabilitation [address] [place] [address] Nadir Bourgeois MD [address] [place] [address] 13248 05/20/2025 7:15 AM EST Office Visit [facility] Cardiopulmonary Rehabilitation [address] [place] [address] 03322 Nadir Bourgeois MD [address] [place] [address] 17214 05/23/2025 7:15 AM EST Office Visit [facility] Cardiopulmonary Rehabilitation [address] [place] [address] 53640 Nadir Bourgeois MD [address] [place] [address] 58092 05/25/2025 7:15 AM EST Office Visit [facility] Cardiopulmonary Rehabilitation [address] [place] [address] 13028 Nadir Bourgeois MD [address] [place] [address] 51956 05/27/2025 7:15 AM EST Office Visit [facility] Cardiopulmonary Rehabilitation [address] [place] [address] 35068 Nadir Bourgeois MD [address] [place] [address] 54677 05/30/2025 7:15 AM EST Office Visit [facility] Cardiopulmonary Rehabilitation [address] [place] [address] 54243 Nadir Bourgeois MD [address] [place] [address] 22888 06/01/2025 7:15 AM EST Office Visit [facility] Cardiopulmonary Rehabilitation [address] [place] [address] 13221 Nadir Bourgeois MD [address] [place] [address] 25530 06/03/2025 7:15 AM EST Office Visit [facility] Cardiopulmonary Rehabilitation [address] [place] [address] 0[address] Nadir Bourgeois MD [address] [place] [address] 96629 08/23/2025 8:20 AM EST Office Visit [facility] [address] [place] [address], [address] [place] [address] Jaden Taveras MD [address] [place] [address] 9[address]19 09/02/2025 8:40 AM EDT Office Visit [address] [place] [address], [address] [place] [address] Nadir Bourgeois MD [address] [place] [address] 60954 10/31/2025 10:15 AM EDT Appointment Echo Lab [address] [address] Nadir Bourgeois MD [address] [place] [address] 44485 11/11/2025 11:20 AM EDT Office Visit [address], [address] [place] [address] Nadir Bourgeois MD [address] [place] [address] 25495 documented as of this encounter Visit Diagnoses Not on filedocumented in this encounter Care Teams Cash Grain Farmer Relationship Specialty Start Date End Date Taco Molina DO PCP - General Internal Medicine 11/11/17 01/25/25 Taco Molina DO [address] [place] [address] [place] [address] [email or web address] PCP - General Internal Medicine 01/26/25 documented as of this encounter Additional Source Comments The information contained in this document represents components of the legal health record. It is not the complete legal health record.[facility]
--- OUTSIDE RECORDS SUMMARY | 2025-03-16 18:11 | XMS_ITS | Encounter Summary ---
Author Organization [facility] Address [address] [facility] [address] [place] [address] Phone Care Team Providers Care Jailer Chief Name Role Phone Taco Molina DO Primary Care Provider [phone] Taco Molina DO Primary Care Provider [phone] Encounter Details Date Type Department Care Team (Late st Contact Info) Description 11/26/2024 Transcribe Orders Virtual Department [address] [place] [address] Taco Molina DO [address] [facility] [place] [address] [place] [address] Spinal stenosis, lumbar region with neurogenic claudication (Primary Dx) Social History Tobacco Use Types Packs/Day Years [...] Info) Description 12/27/2024 Procedure Pass Echo Lab [address] [place] [address] 03/18/2025 7:15 AM EDT Office Visit [facility] Cardiopulmonary Rehabilitation [address] [place] [address] Nadir Bourgeois MD [address] [place] [address] 012[address] 03/21/2025 7:15 AM EDT Office Visit [facility] Cardiopulmonary [address] [address] Nadir Bourgeois MD [address] [place] [address] 60071 03/23/2025 7:15 AM EDT Office Visit [facility] Cardiopulmonary Rehabilitation [address] [place] [address] 22881 Nadir Bourgeois MD [address] [place] [address] 08074 03/25/2025 7:15 AM EDT Office Visit [facility] Cardiopulmonary Rehabilitation [address] [place] [address] Nadir Bourgeois MD [address] [place] [address] 96887 03/28/2025 7:15 AM EDT Office Visit [facility] Cardiopulmonary Rehabilitation [address] [place] [address] Nadir Bourgeois MD [address] [place] [address] 55385 03/30/2025 7:15 AM EDT Office Visit [facility] Cardiopulmonary Rehabilitation [address] [place] [address] Nadir Bourgeois MD [address] [place] [address] 51908 04/01/2025 7:15 AM EDT Office Visit [facility] Cardiopulmonary Rehabilitation [address] [place] [address] Nadir Bourgeois MD [address] [place] [address] 89702 04/04/2025 7:15 AM EDT Office Visit [facility] Cardiopulmonary Rehabilitation [address] [place] [address] Nadir Bourgeois MD [address] [place] [address] 88843 04/06/2025 7:15 AM EDT Office Visit [facility] Cardiopulmonary Rehabilitation [address] [place] [address] Nadir Bourgeois MD [address] [place] [address] 56113 04/08/2025 7:15 AM EDT Office Visit [facility] Cardiopulmonary Rehabilitation [address] [place] [address] Nadir Bourgeois MD [address] [place] [address] 55150 04/11/2025 7:15 AM EDT Office Visit [facility] Cardiopulmonary Rehabilitation [address] [place] [address] Nadir Bourgeois MD [address] [place] [address] 80400 04/13/2025 7:15 AM EDT Office Visit [facility] Cardiopulmonary Rehabilitation [address] [place] [address] Nadir Bourgeois MD [address] [place] [address] 58673 04/15/2025 7:15 AM EDT Office Visit [facility] Cardiopulmonary Rehabilitation [address] [place] [address] Nadir Bourgeois MD [address] [place] [address] 16745 04/18/2025 7:15 AM EDT Office Visit [facility] Cardiopulmonary Rehabilitation [address] [place] [address] 57324 Nadir Bourgeois MD [address] [place] [address] 10483 04/20/2025 7:15 AM EDT Office Visit [facility] Cardiopulmonary Rehabilitation [address] [place] [address] 07472 Nadir Bourgeois MD [address] [place] [address] 12739 04/20/2025 2:00 PM EDT Office Visit [facility] [address] [place] [address] 3rd Floor, [address] [place] [address] Macrina Pearson, JU [address] [facility], [address] [place] [address] 04/22/2025 7:15 AM EDT Office Visit [facility] Cardiopulmonary Rehabilitation [address] [place] [address] 628[address] Nadir Bourgeois MD [address] [place] [address] 91366 04/25/2025 7:15 AM EST Office Visit [facility] Cardiopulmonary Rehabilitation [address] [place] [address] 96798 Nadir Bourgeois MD [address] [place] [address] 52858 04/27/2025 7:15 AM EST Office Visit [facility] Cardiopulmonary Rehabilitation [address] [place] [address] 61052 Nadir Bourgeois MD [address] [place] [address] 49734 04/29/2025 7:15 AM EST Office Visit [facility] Cardiopulmonary [address] [address] Nadir Bourgeois MD [address] [place] [address] 04989 05/02/2025 7:15 AM EST Office Visit [facility] Cardiopulmonary Rehabilitation [address] [place] [address] 22439 aNdir Bourgeois MD [address] [place] [address] 36566 05/04/2025 7:15 AM EST Office Visit [facility] Cardiopulmonary Rehabilitation [address] [place] [address] 51449 Nadir Bourgeois MD [address] [place] [address] 51264 05/06/2025 7:15 AM EST Office Visit [facility] Cardiopulmonary Rehabilitation [address] [place] [address] 02804 Nadir Bourgeois MD [address] [place] [address] 31660 05/09/2025 7:15 AM EST Office Visit [facility] Cardiopulmonary Rehabilitation [address] [place] [address] 52809 Nadir Bourgeois MD [address] [place] [address] 46482 05/11/2025 7:15 AM EST Office Visit [facility] Cardiopulmonary Rehabilitation [address] [place] [address] 97506 Nadir Bourgeois MD [address] [place] [address] 11253 05/13/2025 7:15 AM EST Office Visit [facility] Cardiopulmonary Rehabilitation [address] [place] [address] 52508 Nadir Bourgeois MD [address] [place] [address] 14210 05/16/2025 7:15 AM EST Office Visit [facility] Cardiopulmonary Rehabilitation [address] [place] [address] 64743 Nadir Bourgeois MD [address] [place] [address] 97902 05/18/2025 7:15 AM EST Office Visit [facility] Cardiopulmonary Rehabilitation [address] [place] [address] 74240 Nadir Bourgeois MD [address] [place] [address] 18700 05/20/2025 7:15 AM EST Office Visit [facility] Cardiopulmonary Rehabilitation [address] [place] [address] 26382 Nadir Bourgeois MD [address] [place] [address] 87010 05/23/2025 7:15 AM EST Office Visit [facility] Cardiopulmonary Rehabilitation [address] [place] [address] Nadir Bourgeois MD [address] [place] [address] 25752 05/25/2025 7:15 AM EST Office Visit [facility] Cardiopulmonary Rehabilitation [address] [place] [address] 19434 Nadir Bourgeois MD [address] [place] [address] 72411 05/27/2025 7:15 AM EST Office Visit [facility] Cardiopulmonary Rehabilitation [address] [place] [address] 69289 Nadir Bourgeois MD [address] [place] [address] 11261 05/30/2025 7:15 AM EST Office Visit [facility] Cardiopulmonary Rehabilitation [address] [place] [address] 93592 Nadir Bourgeois MD [address] [place] [address] 20788 06/01/2025 7:15 AM EST Office Visit [facility] Cardiopulmonary Rehabilitation [address] [place] [address] 87806 Nadir Bourgeois MD [address] [place] [address] 38018 06/03/2025 7:15 AM EST Office Visit [facility] Cardiopulmonary Rehabilitation [address] [place] [address] Nadir Bourgeois MD [address] [place] [address] 81795 08/23/2025 8:20 AM EST Office Visit [facility] [address] [place] [address], [address] [place] [address] Jaden Taveras MD [address] [place] [address] 56677 09/02/2025 8:40 AM EDT Office Visit [address], [address] [place] [address] Nadir Bourgeois MD [address] [place] [address] 49135 10/31/2025 10:15 AM EDT Appointment Echo Lab [address] [address] Nadir Bourgeois MD [address] [place] [address] 92625 11/11/2025 11:20 AM EDT Office Visit [address], [address] [place] [address] 36[address] Nadir Bourgeois MD [address] [place] [address] 35936 documented as of this encounter Visit Diagnoses Diagnosis Spinal stenosis, lumbar region with neurogenic claudication- Primary documented in this encounter Care Teams Jailer Chief Relationship Specialty Start Date End Date Taco Molina DO PCP - General Internal Medicine 11/11/17 01/25/25 Taco Molina DO [address] [place] [address] 42799 PCP - General Internal Medicine 01/26/25 documented as of this encounter Additional Source Comments The information contained in this document represents components of the legal health record. It is not the complete legal health record.[facility]
--- OUTSIDE RECORDS SUMMARY | 2025-03-16 18:11 | XMS_ITS | Encounter Summary ---
Author Organization [facility] Address [address] [place] [address] [place] [address] Phone Care Team Providers Care Diffuser Operator Name Role Phone Taco Molina Primary Care Provider [phone] DilipTaco norman Primary Care Provider [phone] Encounter Details Date Type Department Care Team (Late st Contact Info) Description 11/11/2017 Procedure Pass [facility] Endoscopy Admitting Dept Virtual Department [address] [place] [address] Social History Tobacco Use Types Packs/Day Years [...] Info) Description 12/27/2024 Procedure Pass Echo [facility] [address] [place] [address] 03/18/2025 7:15 AM EDT Office Visit [facility] [address] [place] [address] Nadir Bourgeois MD [address] [place] [address] [phone] 03/21/2025 7:15 AM EDT Office Visit [facility] Cardiopulmonary Rehabilitation [address] [place] [address] Nadir Bourgeois MD [address] [place] [address] 67252 03/23/2025 7:15 AM EDT Office Visit [facility] Cardiopulmonary Rehabilitation [address] [place] [address] Nadir Bourgeois MD [address] [place] [address] 30829 03/25/2025 7:15 AM EDT Office Visit [facility] Cardiopulmonary Rehabilitation [address] [place] [address] 10539 Nadir Bourgeois MD [address] [place] [address] 64411 03/28/2025 7:15 AM EDT Office Visit [facility] Cardiopulmonary Rehabilitation [address] [place] [address]4446 Nadir Bourgeois MD [address] [place] [address] 66338 03/30/2025 7:15 AM EDT Office Visit [facility] Cardiopulmonary Rehabilitation [address] [place] [address] 87167 Nadir Bourgeois MD [address] [place] [address] 62759 04/01/2025 7:15 AM EDT Office Visit [facility] Cardiopulmonary Rehabilitation [address] [place] [address] Nadir Bourgeois MD [address] [place] [address] 10204 04/04/2025 7:15 AM EDT Office Visit [facility] Cardiopulmonary Rehabilitation [address] [place] [address] Nadir Bourgeois MD [address] [place] [address] 28449 04/06/2025 7:15 AM EDT Office Visit [facility] Cardiopulmonary Rehabilitation [address] [place] [address] Nadir Bourgeois MD [address] [place] [address] 46262 04/08/2025 7:15 AM EDT Office Visit [facility] Cardiopulmonary Rehabilitation [address] [place] [address] 30351 Nadir Bourgeois MD [address] [place] [address] 76230 04/11/2025 7:15 AM EDT Office Visit [facility] Cardiopulmonary Rehabilitation [address] [place] [address] 6[address] Nadir Bourgeois MD [address] [place] [address] 39579 04/13/2025 7:15 AM EDT Office Visit [facility] Cardiopulmonary Rehabilitation [address] [place] [address] Nadir Bourgeois MD [address] [place] [address] 30525 04/15/2025 7:15 AM EDT Office Visit [facility] Cardiopulmonary Rehabilitation [address] [place] [address] Nadir Bourgeois MD [address] [place] [address] 38692 04/18/2025 7:15 AM EDT Office Visit [facility] Cardiopulmonary Rehabilitation [address] [place] [address] Nadir Bourgeois MD [address] [place] [address] 73721 04/20/2025 7:15 AM EDT Office Visit [facility] Cardiopulmonary Rehabilitation [address] [place] [address] Nadir Bourgeois MD [address] [place] [address] 93642 04/20/2025 2:00 PM EDT Office Visit [facility] [address] [place] [address] Floor, [address] [place] [address] Macrina Pearson DNP [address] [place] [address] 50492 04/22/2025 7:15 AM EDT Office Visit [facility] Cardiopulmonary Rehabilitation [address] [place] [address] Nadir Bourgeois MD [address] [place] [address] 90905 04/25/2025 7:15 AM EST Office Visit [facility] Cardiopulmonary Rehabilitation [address] [place] [address] Nadir Bourgeois MD [address] [place] [address] 96967 04/27/2025 7:15 AM EST Office Visit [facility] Cardiopulmonary Rehabilitation [address] [place] [address] Nadir Bourgeois MD [address] [place] [address] 88755 04/29/2025 7:15 AM EST Office Visit [facility] Cardiopulmonary Rehabilitation [address] [place] [address] 49934 Nadir Bourgeois MD [address] [place] [address] 96619 05/02/2025 7:15 AM EST Office Visit [facility] Cardiopulmonary Rehabilitation [address] [place] [address] 99893 Nadir Bourgeois MD [address] [place] [address] 63697 05/04/2025 7:15 AM EST Office Visit [facility] Cardiopulmonary Rehabilitation [address] [place] [address] 13633 Nadir Bourgeois MD [address] [place] [address] 82020 05/06/2025 7:15 AM EST Office Visit [facility] Cardiopulmonary Rehabilitation [address] [place] [address] 15646 Nadir Bourgeois MD [address] [place] [address] 15378 05/09/2025 7:15 AM EST Office Visit [facility] Cardiopulmonary Rehabilitation [address] [place] [address] Nadir Bourgeois MD [address] [place] [address] 94638 05/11/2025 7:15 AM EST Office Visit [facility] Cardiopulmonary Rehabilitation [address] [place] [address] Nadir Bourgeois MD [address] [place] [address] 83585 05/13/2025 7:15 AM EST Office Visit [facility] Cardiopulmonary Rehabilitation [address] [place] [address] Nadir Bourgeois MD [address] [place] [address] 87650 05/16/2025 7:15 AM EST Office Visit [facility] Cardiopulmonary Rehabilitation [address] [place] [address] 88361 Nadir Bourgeois MD [address] [place] [address] 28399 05/18/2025 7:15 AM EST Office Visit [facility] Cardiopulmonary Rehabilitation [address] [place] [address] Nadir Bourgeois MD [address] [place] [address] 44175 05/20/2025 7:15 AM EST Office Visit [facility] Cardiopulmonary Rehabilitation [address] [place] [address] 85514 Nadir Bourgeois MD [address] [place] [address] 79928 05/23/2025 7:15 AM EST Office Visit [facility] Cardiopulmonary Rehabilitation [address] [place] [address] 23427 Nadir Bourgeois MD [address] [place] [address] 20219 05/25/2025 7:15 AM EST Office Visit [facility] Cardiopulmonary Rehabilitation [address] [place] [address] 22913 Nadir Bourgeois MD [address] [place] [address] 14100 05/27/2025 7:15 AM EST Office Visit [facility] Cardiopulmonary Rehabilitation [address] [place] [address] 26140 Nadir Bourgeois MD [address] [place] [address] 68749 05/30/2025 7:15 AM EST Office Visit [facility] Cardiopulmonary Rehabilitation [address] [place] [address] Nadir Bourgeois MD [address] [place] [address] 68447 06/01/2025 7:15 AM EST Office Visit [facility] Cardiopulmonary Rehabilitation [address] [place] [address] Nadir Bourgeois MD [address] [place] [address] 52845 06/03/2025 7:15 AM EST Office Visit [facility] Cardiopulmonary Rehabilitation [address] [place] [address] Nadir Bourgeois MD [address] [place] [address] 40391 08/23/2025 8:20 AM EST Office Visit [facility] [address] [place] [address], [address] [place] [address] Jaden Taveras MD [address] [place] [address] 76842 09/02/2025 8:40 AM EDT Office Visit [facility] [address] [place] [address], [address] [place] [address] Nadir Bourgeois MD [address] [place] [address] 30784 10/31/2025 10:15 AM EDT Appointment Echo Lab [address] [place] [address] Nadir Bourgeois MD [address] [place] [address] 74002 11/11/2025 11:20 AM EDT Office Visit [facility] [address] Floor, [address] [place] [address] Nadir Bourgeois MD [address] [place] [address] 02945 documented as of this encounter Visit Diagnoses Not on filedocumented in this encounter Care Teams Diffuser Operator Relationship Specialty Start Date End Date Taco Molina DO PCP - General Internal Medicine 11/11/17 01/25/25 Taco Molina DO [address] [place] [address] [place] [address] PCP - General Internal Medicine 01/26/25 documented as of this encounter Additional Source Comments The information contained in this document represents components of the legal health record. It is not the complete legal health record.[facility]
--- OUTSIDE RECORDS SUMMARY | 2025-03-16 18:11 | XMS_ITS | Encounter Summary ---
Author Organization [facility] Address [address] [place] [address] [place] [address] Phone Care Team Providers Care Windows Application Packager Name Role Phone Taco Molina DO Primary Care Provider Taco Molina Primary Care Provider [phone] Encounter Details Date Type Department Care Team (Late st Contact Info) Description 01/07/2018 Ancillary Orders Virtual Department [address] [place] [address] Yobany Madeline, DESTINY [address] [place] [address] D-dimer, elevated; Abnormal coagulation profile Social History Tobacco Use Types Packs/Day Years [...] Info) Description 12/27/2024 Procedure Pass Echo Lab [address] [place] [address] 03/18/2025 7:15 AM EDT Office Visit [facility] [address] [place] [address] Nadir Bourgeois MD [address] [place] [address] 57253 03/21/2025 7:15 AM EDT Office Visit [facility] Cardiopulmonary Rehabilitation [address] [place] [address] 25135 Nadir Bourgeois MD [address] [place] [address] 66469 03/23/2025 7:15 AM EDT Office Visit [facility] Cardiopulmonary Rehabilitation [address] [place] [address] 74746 Nadir Bourgeois MD [address] [place] [address] 58568 03/25/2025 7:15 AM EDT Office Visit [facility] Cardiopulmonary Rehabilitation [address] [place] [address] 55862 Nadir Bourgeois MD [address] [place] [address] 01012 03/28/2025 7:15 AM EDT Office Visit [facility] Cardiopulmonary Rehabilitation [address] [place] [address] 89618 Nadir Bourgeois MD [address] [place] [address] 05687 03/30/2025 7:15 AM EDT Office Visit [facility] Cardiopulmonary Rehabilitation [address] [place] [address] 15359 Nadir Bourgeois MD [address] [place] [address] 79449 04/01/2025 7:15 AM EDT Office Visit [facility] Cardiopulmonary Rehabilitation [address] [place] [address] 23826 Nadir Bourgeois MD [address] [place] [address] 17842 04/04/2025 7:15 AM EDT Office Visit [facility] Cardiopulmonary Rehabilitation [address] [place] [address] Nadir Bourgeois MD [address] [place] [address] 17910 04/06/2025 7:15 AM EDT Office Visit [facility] Cardiopulmonary Rehabilitation [address] [place] [address] Nadir Bourgeois MD [address] [place] [address] 58329 04/08/2025 7:15 AM EDT Office Visit [facility] Cardiopulmonary Rehabilitation [address] [place] [address] Nadir Bourgeois MD [address] [place] [address] 52130 04/11/2025 7:15 AM EDT Office Visit [facility] Cardiopulmonary Rehabilitation [address] [place] [address] Nadir Bourgeois MD [address] [place] [address] 59526 04/13/2025 7:15 AM EDT Office Visit [facility] Cardiopulmonary Rehabilitation [address] [place] [address] Nadir Bourgeois MD [address] [place] [address] 73295 04/15/2025 7:15 AM EDT Office Visit [facility] Cardiopulmonary Rehabilitation [address] [place] [address] 48358 Nadir Bourgeois MD [address] [place] [address] 58805 04/18/2025 7:15 AM EDT Office Visit [facility] Cardiopulmonary Rehabilitation [address] [place] [address] Nadir Bourgeois MD [address] [place] [address] 48633 04/20/2025 7:15 AM EDT Office Visit [facility] Cardiopulmonary Rehabilitation [address] [place] [address] 32587 Nadir Bourgeois MD [address] [place] [address] 14944 04/20/2025 2:00 PM EDT Office Visit [facility] [address] [place] [address], [address] [address] Macrina Pearson DNP [address] [place] [address] 97280 04/22/2025 7:15 AM EDT Office Visit [facility] Cardiopulmonary Rehabilitation [address] [place] [address] 36258 Nadir Bourgeois MD [address] [place] [address] 38997 04/25/2025 7:15 AM EST Office Visit [facility] Cardiop[facility] Rehabilitation [address] [place] [address] 21496 Nadir Bourgeois MD [address] [place] [address] 43271 04/27/2025 7:15 AM EST Office Visit [facility] Cardiopulmonary Rehabilitation [address] [place] [address] 17008 Nadir Bourgeois MD [address] [place] [address] 81650 04/29/2025 7:15 AM EST Office Visit [facility] Cardiopulmonary Rehabilitation [address] [place] [address] Nadir Bourgeois MD [address] [place] [address] 51177 05/02/2025 7:15 AM EST Office Visit [facility] Cardiopulmonary Rehabilitation [address] [place] [address] Nadir Bourgeois MD [address] [place] [address] 87929 05/04/2025 7:15 AM EST Office Visit [facility] Cardiop[facility] Rehabilitation [address] [place] [address] 30364 Nadir Bourgeois MD [address] [place] [address] 70179 05/06/2025 7:15 AM EST Office Visit [facility] Cardiop[facility] Rehabilitation [address] [place] [address] 36088 Nadir Bourgeois MD [address] [place] [address] 04650 05/09/2025 7:15 AM EST Office Visit [facility] Cardiopulmonary Rehabilitation [address] [place] [address] Nadir Bourgeois MD [address] [place] [address] 50862 05/11/2025 7:15 AM EST Office Visit [facility] Card[facility] Rehabilitation [address] [place] [address] 42805 Nadir oBurgeois MD [address] [place] [address] 15229 05/13/2025 7:15 AM EST Office Visit [facility] Cardiopulmonary Rehabilitation [address] [place] [address] Nadir Bourgeois MD [address] [place] [address] 49254 05/16/2025 7:15 AM EST Office Visit [facility] Cardiop[facility] Rehabilitation [address] [place] [address] 38400 Nadir Bourgeois MD [address] [place] [address] 10607 05/18/2025 7:15 AM EST Office Visit [facility] Cardiopulmonary Rehabilitation [address] [place] [address] 46485 Nadir Bourgeois MD [address] [place] [address] 74219 05/20/2025 7:15 AM EST Office Visit [facility] Cardiopulmonary Rehabilitation [address] [place] [address] 02183 Nadir Bourgeois MD [address] [place] [address] 13171 05/23/2025 7:15 AM EST Office Visit [facility] Cardiop[facility] Rehabilitation [address] [place] [address] 07992 Nadir Bourgeois MD [address] [place] [address] 74402 05/25/2025 7:15 AM EST Office Visit [facility] Cardiopulmonary Rehabilitation [address] [place] [address] Nadir Bourgeois MD [address] [place] [address] 80026 05/27/2025 7:15 AM EST Office Visit [facility] Cardiop[facility] Rehabilitation [address] [place] [address] 86706 Nadir Bourgeois MD [address] [place] [address] 10416 05/30/2025 7:15 AM EST Office Visit [facility] Cardiop[facility] Rehabilitation [address] [place] [address] 30906 Nadir Bourgeois MD [address] [place] [address] 95024 06/01/2025 7:15 AM EST Office Visit [facility] Cardiop[facility] Rehabilitation [address] [place] [address] 90151 Nadir Bourgeois MD [address] [place] [address] 94245 06/03/2025 7:15 AM EST Office Visit [facility] Card[facility] Rehabilitation [address] [place] [address] 40487 Nadir Bourgeois MD [address] [place] [address] 46385 08/23/2025 8:20 AM EST Office Visit [facility] [address]rd Floor, [address] [place] [address] Jaden Taveras MD [address] [place] [address] 90249 09/02/2025 8:40 AM EDT Office Visit [facility] [address] Floor, [address] [place] [address] 78209 Nadir Bourgeois MD [address] [place] [address] 18017 [email or web address] 10/31/2025 10:15 AM EDT Appointment Echo Lab [place] [address] [place] [address] Nadir Bourgeois MD [address] [place] [address] 06443 11/11/2025 11:20 AM EDT Office Visit [facility] [address] Floor, [address] [place] [address] Nadir Bourgeois MD [address] [place] [address] 80888 [email or web address] documented as of this encounter Results * US Lower Extremity Veins Duplex (Left) (01/07/2018 1:39 PM EDT) Anatomical Region Laterality Modality Hip Left, Thigh Left, Knee L eft, Leg Left, Ankle Left, Foot Left Ultrasound 01/07/2018 1:47 PM EDT Impressions 01/07/2018 1:48 PM EDT No evidence of deep venous thrombosis from the common femoral vein to the popliteal vein in the left lower extremity. POS - [id number] Narrative 01/07/2018 1:48 PM EDT Ultrasonic examination of the deep venous system of the left leg was performed from the common femoral vein into the upper calf and includes the posterior tibial vein at the ankle, and demonstrates preserved flow, compressibility, and augmentation throughout the visualized deep venous system. No Friedman's cyst. Procedure Note Ray Lombardi MD - 01/07/2018 Ultrasonic examination of the deep venous system of the left leg wasperformed from the common femoral vein into the upper calf and includesthe posterior tibial vein at the ankle, and demonstrates preserved flow,compressibility, and augmentation throughout the visualized deep venoussystem. No Friedman's cyst. IMPRESSION: No evidence of deep venous thrombosis from the common femoral vein to thepopliteal vein in the left lower extremity. POS - [id number] September Yobany [facility] Final Result documented in this encounter Visit Diagnoses Diagnosis D-dimer, elevated Abnormal coagulation profile D-dimer, elevated Abnormal coagulation profile documented in this encounter Care Teams Windows Application Packager Relationship Specialty Start Date End Date Taco Molina DO [email or web address] PCP - General Internal Medicine 11/11/17 01/25/25 Taco Molina DO [address] [place] [address] [email or web address] PCP - General Internal Medicine 01/26/25 documented as of this encounter Additional Source Comments The information contained in this document represents components of the legal health record. It is not the complete legal health record.[facility]
--- OUTSIDE RECORDS SUMMARY | 2025-03-16 18:11 | XMS_ITS | Encounter Summary ---
Author Organization Formerly [facility] Address [address] [place] [address] [place] [phone] Phone Care Team Providers Care Media Production Operator Name Role Phone Taco Molina Primary Care Provider [phone] DilpiTaco norman Primary Care Provider [phone] Encounter Details Date Type Department Care Team (Late st Contact Info) Description 04/01/2024 Procedure Pass Echo Lab [place] [place] [address] Social History Tobacco Use Types Packs/Day Years [...] Info) Description 12/27/2024 Procedure Pass Echo Lab [address] [place] [address] 03/18/2025 7:15 AM EDT Office Visit [facility] Cardiopulmonary Rehabilitation [address] [place] [address] Nadir Bourgeois MD [address] [place] [address] 679[address] 03/21/2025 7:15 AM EDT Office Visit [facility] Cardiopulmonary [address] [address] Nadir Bourgeois MD [address] [place] [address] 10121 03/23/2025 7:15 AM EDT Office Visit [facility] Cardiopulmonary Rehabilitation [address] [place] [address] 16[address] Nadir Bourgeois MD [address] [place] [address] 69199 03/25/2025 7:15 AM EDT Office Visit [facility] Cardiopulmonary Rehabilitation [address] [place] [address] Nadir Bourgeois MD [address] [place] [address] 26394 03/28/2025 7:15 AM EDT Office Visit [facility] Cardiopulmonary Rehabilitation [address] [place] [address] Nadir Bourgeois MD [address] [place] [address] 54682 03/30/2025 7:15 AM EDT Office Visit [facility] Cardiopulmonary Rehabilitation [address] [place] [address] Nadir Bourgeois MD [address] [place] [address] 30906 04/01/2025 7:15 AM EDT Office Visit [facility] Cardiopulmonary Rehabilitation [address] [place] [address] Nadir Bourgeois MD [address] [place] [address] 79883 04/04/2025 7:15 AM EDT Office Visit [facility] Cardiopulmonary Rehabilitation [address] [place] [address] Nadir Bourgeois MD [address] [place] [address] 46014 04/06/2025 7:15 AM EDT Office Visit [facility] Cardiopulmonary Rehabilitation [address] [place] [address] Nadir Bourgeois MD [address] [place] [address] 91426 04/08/2025 7:15 AM EDT Office Visit [facility] Cardiopulmonary Rehabilitation [address] [place] [address] Nadir Bourgeois MD [address] [place] [address] 09375 04/11/2025 7:15 AM EDT Office Visit [facility] Cardiopulmonary Rehabilitation [address] [place] [address] Nadir Bourgeois MD [address] [place] [address] 67328 04/13/2025 7:15 AM EDT Office Visit [facility] Cardiopulmonary Rehabilitation [address] [place] [address] Nadir Bouregois MD [address] [place] [address] 71353 04/15/2025 7:15 AM EDT Office Visit [facility] Cardiopulmonary Rehabilitation [address] [place] [address] Nadir Bourgeois MD [address] [place] [address] 98375 04/18/2025 7:15 AM EDT Office Visit [facility] Cardiopulmonary Rehabilitation [address] [place] [address] Nadir Bourgeois MD [address] [place] [address] 52788 04/20/2025 7:15 AM EDT Office Visit [facility] Cardiopulmonary Rehabilitation [address] [place] [address] Nadir Bourgeois MD [address] [place] [address] 21791 04/20/2025 2:00 PM EDT Office Visit [facility] [address] [place] [address] [address]rd Floor, [address] [place] [address] Macrina Pearson DNP [address] [place] [address], [address] [address] 04/22/2025 7:15 AM EDT Office Visit [facility] Cardiopulmonary Rehabilitation [address] [place] [address] Nadir Bourgeois MD [address] [place] [address] 41688 04/25/2025 7:15 AM EST Office Visit [facility] Cardiopulmonary Rehabilitation [address] [place] [address] 77[address] Nadir Bourgeois MD [address] [place] [address] [phone] 04/27/2025 7:15 AM EST Office Visit [facility] Cardiopulmonary Rehabilitation [address] [place] [address] Nadir Bourgeois MD [address] [place] [address] 18030 04/29/2025 7:15 AM EST Office Visit [facility] Cardiopulmonary Rehabilitation [address] [place] [address] Nadir Bourgeois MD [address] [place] [address] 80080 05/02/2025 7:15 AM EST Office Visit [facility] Cardiopulmonary Rehabilitation [address] [place] [address] aNdir Bourgeois MD [address] [place] [address] 17738 05/04/2025 7:15 AM EST Office Visit [facility] Cardiopulmonary Rehabilitation [address] [place] [address] 24[address] Nadir Bourgeois MD [address] [place] [address] 73106 05/06/2025 7:15 AM EST Office Visit [facility] Cardiopulmonary Rehabilitation [address] [place] [address] Nadir Bourgeois MD [address] [place] [address] 95745 05/09/2025 7:15 AM EST Office Visit [facility] Cardiopulmonary Rehabilitation [address] [place] [address] Nadir Bourgeois MD [address] [place] [address] 45753 05/11/2025 7:15 AM EST Office Visit [facility] Cardiopulmonary Rehabilitation [address] [place] [address] Nadir Bourgeois MD [address] [place] [address] 29201 05/13/2025 7:15 AM EST Office Visit [facility] Cardiopulmonary Rehabilitation [address] [place] [address] Nadir Bourgeois MD [address] [place] [address] 28048 05/16/2025 7:15 AM EST Office Visit [facility] Cardiopulmonary Rehabilitation [address] [place] [address] 98[address] Nadir Bourgeois MD [address] [place] [address] 34953 05/18/2025 7:15 AM EST Office Visit [facility] Cardiopulmonary Rehabilitation [address] [place] [address] Nadir Bourgeois MD [address] [place] [address] 82484 05/20/2025 7:15 AM EST Office Visit [facility] Cardiopulmonary Rehabilitation [address] [place] [address] Nadir Bourgeois MD [address] [place] [address] 24858 05/23/2025 7:15 AM EST Office Visit [facility] Cardiopulmonary Rehabilitation [address] [place] [address] 176[address] Nadir Bourgeois MD [address] [place] [address] 01924 05/25/2025 7:15 AM EST Office Visit [facility] Cardiopulmonary Rehabilitation [address] [place] [address] Nadir Bourgeois MD [address] [place] [address] 31643 05/27/2025 7:15 AM EST Office Visit [facility] Cardiopulmonary Rehabilitation [address] [place] [address] 22[address] Nadir Bourgeois MD [address] [place] [address] 88451 05/30/2025 7:15 AM EST Office Visit [facility] Cardiopulmonary Rehabilitation [address] [place] [address] Nadir Bourgeois MD [address] [place] [address] 62413 06/01/2025 7:15 AM EST Office Visit [facility] Cardiopulmonary Rehabilitation [address] [place] [address] Nadir Bourgeois MD [address] [place] [address] 82070 06/03/2025 7:15 AM EST Office Visit [facility] Cardiopulmonary Rehabilitation [address] [place] [address] Nadir Bourgeois MD [address] [place] [address] 95[address] 08/23/2025 8:20 AM EST Office Visit [facility] [address] [place] [address], [address] [place] [address] Jaden Taveras MD [address] [place] [address] 18936 09/02/2025 8:40 AM EDT Office Visit [address] [place] [address], [address] [place] [address] Nadir Bourgeois MD [address] [place] [address] 89133 10/31/2025 10:15 AM EDT Appointment Echo Lab [address] [address] Nadir Bourgeois MD [address] [place] [address] 38308 11/11/2025 11:20 AM EDT Office Visit [address], [address] [place] [address] Nadri Bourgeois MD [address] [place] [address] 366[address] documented as of this encounter Visit Diagnoses Not on filedocumented in this encounter Care Teams Media Production Operator Relationship Specialty Start Date End Date Taco Molina DO PCP - General Internal Medicine 11/11/17 01/25/25 Taco Molina DO [address] [place] [address] [place] [address] [email or web address] PCP - General Internal Medicine 01/26/25 documented as of this encounter Additional Source Comments The information contained in this document represents components of the legal health record. It is not the complete legal health record.[facility]
--- OUTSIDE RECORDS SUMMARY | 2025-03-16 18:11 | XMS_ITS | Encounter Summary ---
Author Organization [facility] Address [address] [place] [address] [place] [phone] Phone Care Team Providers Care Wire Charger Name Role Phone Taco Molina DO Primary Care Provider [phone] Taco Molina Primary Care Provider [phone] Encounter Details Date Type Department Care Team (Latest Contact Info) Description 01/06/2018 Transcribe Orders [facility] Phlebotomy [address] [place] [address] Yobany Madeline, DESTINY [address] [place] [address] Localized edema (Primary Dx) Social History Tobacco Use Types [...] Info) Description 12/27/2024 Procedure Pass Echo Lab [address] [place] [address] 03/18/2025 7:15 AM EDT Office Visit [facility] Cardiopulmonary Rehabilitation [address] [place] [address] Nadir Bourgeois MD [address] [place] [address] 21138 03/21/2025 7:15 AM EDT Office Visit [facility] Cardiopulmonary Rehabilitation [address] [place] [address] Nadir Bourgeois MD [address] [place] [address] 65790 03/23/2025 7:15 AM EDT Office Visit [facility] Cardiopulmonary Rehabilitation [address] [place] [address] Nadir Bourgeois MD [address] [place] [address] 76402 03/25/2025 7:15 AM EDT Office Visit [facility] Cardiopulmonary Rehabilitation [address] [place] [address] Nadir Bourgeois MD [address] [place] [address] 64918 03/28/2025 7:15 AM EDT Office Visit [facility] Cardiopulmonary Rehabilitation [address] [place] [address] Nadir Bourgeois MD [address] [place] [address] 22246 03/30/2025 7:15 AM EDT Office Visit [facility] Cardiopulmonary Rehabilitation [address] [place] [address] 17867 Nadir Bourgeois MD [address] [place] [address] 05033 04/01/2025 7:15 AM EDT Office Visit [facility] Cardiopulmonary Rehabilitation [address] [place] [address] 77890 Nadir Bourgeois MD [address] [place] [address] 05365 04/04/2025 7:15 AM EDT Office Visit [facility] Cardiopulmonary Rehabilitation [address] [place] [address] Nadir Bourgeois MD [address] [place] [address] 35863 04/06/2025 7:15 AM EDT Office Visit [facility] Cardiopulmonary Rehabilitation [address] [place] [address] Nadir Bourgeois MD [address] [place] [address] 95328 04/08/2025 7:15 AM EDT Office Visit [facility] Cardiopulmonary Rehabilitation [address] [place] [address] Nadir Bourgeois MD [address] [place] [address] 64093 04/11/2025 7:15 AM EDT Office Visit [facility] Cardiopulmonary Rehabilitation [address] [place] [address] Nadir Bourgeois MD [address] [place] [address] 51560 04/13/2025 7:15 AM EDT Office Visit [facility] Cardiopulmonary Rehabilitation [address] [place] [address] Nadir Bourgeois MD [address] [place] [address] 42631 04/15/2025 7:15 AM EDT Office Visit [facility] Cardiopulmonary Rehabilitation [address] [place] [address] 63003 Nadir Bourgeois MD [address] [place] [address] 56973 04/18/2025 7:15 AM EDT Office Visit [facility] Cardiopulmonary Rehabilitation [address] [place] [address] Nadir Bourgeois MD [address] [place] [address] 94457 04/20/2025 7:15 AM EDT Office Visit [facility] Cardiopulmonary Rehabilitation [address] [place] [address] 73326 Nadir Bourgeois MD [address] [place] [address] 75537 04/20/2025 2:00 PM EDT Office Visit [facility] [address] [place] [address], [address] [address] Macrina Pearson DNP [address] [place] [address] 23003 04/22/2025 7:15 AM EDT Office Visit [facility] Cardiopulmonary Rehabilitation [address] [place] [address] Nadir Bourgeois MD [address] [place] [address] 28783 04/25/2025 7:15 AM EST Office Visit [facility] Cardiopulmonary Rehabilitation [address] [place] [address] 23604 Nadir Bourgeois MD [address] [place] [address] 03470 04/27/2025 7:15 AM EST Office Visit [facility] Cardiopulmonary Rehabilitation [address] [place] [address] 53947 Nadir Bourgeois MD [address] [place] [address] 95246 04/29/2025 7:15 AM EST Office Visit [facility] Cardiopulmonary Rehabilitation [address] [place] [address] Nadir Bourgeois MD [address] [place] [address] 03062 05/02/2025 7:15 AM EST Office Visit [facility] Cardiopulmonary Rehabilitation [address] [place] [address] Nadir Bourgeois MD [address] [place] [address] 19873 05/04/2025 7:15 AM EST Office Visit [facility] Cardiopulmonary Rehabilitation [address] [place] [address] 12125 Nadir Bourgeois MD [address] [place] [address] 91808 05/06/2025 7:15 AM EST Office Visit [facility] Cardiopulmonary Rehabilitation [address] [place] [address] 60595 Nadir Bourgeois MD [address] [place] [address] 36738 05/09/2025 7:15 AM EST Office Visit [facility] Cardiopulmonary Rehabilitation [address] [place] [address] Nadir Bourgeois MD [address] [place] [address] 83870 05/11/2025 7:15 AM EST Office Visit [facility] Cardiopulmonary Rehabilitation [address] [place] [address] 38060 Nadir Bourgeois MD [address] [place] [address] 40271 05/13/2025 7:15 AM EST Office Visit [facility] Cardiopulmonary Rehabilitation [address] [place] [address] Nadir Bourgeois MD [address] [place] [address] 57063 05/16/2025 7:15 AM EST Office Visit [facility] Cardiopulmonary Rehabilitation [address] [place] [address] 12064 Nadir Bourgeois MD [address] [place] [address] 52663 05/18/2025 7:15 AM EST Office Visit [facility] Cardiopulmonary Rehabilitation [address] [place] [address] 30593 Nadir Bourgeois MD [address] [place] [address] 87805 05/20/2025 7:15 AM EST Office Visit [facility] Cardiopulmonary Rehabilitation [address] [place] [address] 64552 Nadir Bourgeois MD [address] [place] [address] 52343 05/23/2025 7:15 AM EST Office Visit [facility] Cardiopulmonary Rehabilitation [address] [place] [address] 66089 Nadir Bourgeois MD [address] [place] [address] 09562 05/25/2025 7:15 AM EST Office Visit [facility] Cardiopulmonary Rehabilitation [address] [place] [address] Nadir Bourgeois MD [address] [place] [address] 76678 05/27/2025 7:15 AM EST Office Visit [facility] Cardiopulmonary Rehabilitation [address] [place] [address] 91422 Nadir Bourgeois MD [address] [place] [address] 33685 05/30/2025 7:15 AM EST Office Visit [facility] Cardiopulmonary Rehabilitation [address] [place] [address] 31515 Nadir Bourgeois MD [address] [place] [address] 42325 06/01/2025 7:15 AM EST Office Visit [facility] Cardiopulmonary Rehabilitation [address] [place] [address] 13597 Nadir Bourgeois MD [address] [place] [address] 70394 06/03/2025 7:15 AM EST Office Visit [facility] Cardiopulmonary Rehabilitation [address] [place] [address] 02268 Nadir Bourgeois MD [address] [place] [address] 47271 08/23/2025 8:20 AM EST Office Visit [facility] [address] 3rd Floor, [address] [place] [address] Jaden Taveras MD [address] [place] [address] 34125 09/02/2025 8:40 AM EDT Office Visit [facility] [address] Floor, [address] [place] [address] Nadir Bourgeois MD [address] [place] [address] 77438 10/31/2025 10:15 AM EDT Appointment Echo Lab [facility] [address] [place] [address] Nadir Bourgeois MD [address] [place] [address] 94589 11/11/2025 11:20 AM EDT Office Visit [facility] [address]rd Floor, [address] [place] [address] Nadir Buorgeois MD [address] [place] [address] 14853 documented as of this encounter Results * Uric acid (01/06/2018 1:22 PM EDT) Pathologist [facility] [place] URIC ACID 6.2 2.4 - 7.0 mg/dL [facility] Blood 01/06/2018 1:22 PM EDT 01/06/2018 1:26 PM EDT Madeline Haywood PA-C LAB BLOOD ORDERABLES Final R esult [facility] [address] [place] [address] * (ABNORMAL) D-dimer (01/06/2018 1:22 PM EDT) D-DIMER 823(H) <500 ng/mL FEU [facility] Comment:In patients with low to moderate pre-test probability scores for VTE (PE or DVT), a D-Dimer cut-off less than 500 ng/mL (FEU) has a negative predictive value (NPV) of 97 to 100%. Blood 01/06/2018 1:22 PM EDT 01/06/2018 1:26 PM EDT Madeline Haywood PA-C LAB BLOOD ORDERABLES Final R esult [facility] [address] [place] [address] documented in this encounter Visit Diagnoses Diagnosis Localized edema- Primary Edema documented in this encounter Care Teams Wire Charger Relationship Specialty Start Date End Date Taco Molina DO [email or web address] PCP - General Internal Medicine 11/11/17 01/25/25 Taco Molina DO [address] [place] [address] PCP - General Internal Medicine 01/26/25 documented as of this encounter Additional Source Comments The information contained in this document represents components of the legal health record. It is not the complete legal health record.[facility]
--- OUTSIDE RECORDS SUMMARY | 2025-03-16 18:11 | XMS_ITS | Encounter Summary ---
Author Organization [facility] Address [address] [place] [id number] Phone Care Team Providers Care Wiper Blender Name Role Phone Taco Molina DO Primary Care Provider [phone] Taco Molina DO Primary Care Provider [phone] Reason for Referral * Outpatient Procedure - Closed Specialty Diagnoses / Procedures Referred By Janis novak Referred To Contact Radiology Diagnoses Nonrheumatic aortic (valve) stenosis Procedures Adult Echo TTE Taco Molina DO Phone: tel: fax: [email or web address] Referral ID Status Reason Start Date Expiration Date Visits Re quested Visits Authorized [id number] Closed 11/11/2023 11/10/2024 1 1 Encounter Details Date Type Department Care Team (Late st Contact Info) Description 11/11/2023 Transcribe Orders Virtual Department [address] [place] [address] Taco Molina DO [address] [facility] [place] [address] [email or web address] Nonrheumatic aortic (valve) stenosis (Primary Dx) Social History Tobacco Use Types [...] Info) Description 12/27/2024 Procedure Pass Echo Lab [address] [place] [address] 03/18/2025 7:15 AM EDT Office Visit [facility] Cardiopulmonary Rehabilitation [address] [place] [address] Nadir Bourgeois MD [address] [place] [address] 03/21/2025 7:15 AM EDT Office Visit [facility] Cardiopulmonary Rehabilitation [address] [place] [address] Nadir Bourgeois MD [address] [place] [address] 03/23/2025 7:15 AM EDT Office Visit [facility] Cardiopulmonary Rehabilitation [address] [place] [address] Nadir Bourgeois MD [address] [place] [address] 101[address] 03/25/2025 7:15 AM EDT Office Visit [facility] Cardiopulmonary Rehabilitation [address] [place] [address] Nadir Bourgeois MD [address] [place] [address] [phone] 03/28/2025 7:15 AM EDT Office Visit [facility] Cardiopulmonary Rehabilitation [address] [place] [address] Nadir Bourgeois MD [address] [place] [address] 23366 03/30/2025 7:15 AM EDT Office Visit [facility] Cardiopulmonary Rehabilitation [address] [place] [address] Nadir Bourgeois MD [address] [place] [address] 04/01/2025 7:15 AM EDT Office Visit [facility] Cardiopulmonary Rehabilitation [address] [place] [address] Nadir Bourgeois MD [address] [place] [address] 623[address] 04/04/2025 7:15 AM EDT Office Visit [facility] Cardiopulmonary Rehabilitation [address] [place] [address] Nadir Bourgeois MD [address] [place] [address] 585[address] 04/06/2025 7:15 AM EDT Office Visit [facility] Cardiopulmonary Rehabilitation [address] [place] [address] Nadir Bourgeois MD [address] [place] [address] 7[address]14 04/08/2025 7:15 AM EDT Office Visit [facility] Cardiopulmonary Rehabilitation [address] [place] [address] Nadir Bourgeois MD [address] [place] [address] 6[address] 04/11/2025 7:15 AM EDT Office Visit [facility] Cardiopulmonary Rehabilitation [address] [place] [address] Nadir Bourgeois MD [address] [place] [address] 68240 04/13/2025 7:15 AM EDT Office Visit [facility] Cardiopulmonary Rehabilitation [address] [place] [phone] Nadir Bourgeois MD [address] [place] [address] 75562 04/15/2025 7:15 AM EDT Office Visit [facility] Cardiopulmonary Rehabilitation [address] [place] [address] Nadir Bourgeois MD [address] [place] [address] 43328 04/18/2025 7:15 AM EDT Office Visit [facility] Cardiopulmonary Rehabilitation [address] [place] [address] Nadir Bourgeois MD [address] [place] [address] 44[address] 04/20/2025 7:15 AM EDT Office Visit [facility] Cardiopulmonary Rehabilitation [address] [place] [address] Nadir Bourgeois MD [address] [place] [address] 16518 04/20/2025 2:00 PM EDT Office Visit [facility] [address] [place] [address] 3rd Floor, [address] [place] [address] Macrina Pearson DNP [address] [facility], [address] [address] 04/22/2025 7:15 AM EDT Office Visit [facility] Cardiopulmonary Rehabilitation [address] [place] [address] Nadir Bourgeois MD [address] [place] [address] 53064 04/25/2025 7:15 AM EST Office Visit [facility] Cardiopulmonary Rehabilitation [address] [place] [address] Nadir Bourgeois MD [address] [place] [address] 54583 04/27/2025 7:15 AM EST Office Visit [facility] Cardiopulmonary Rehabilitation [address] [place] [address] Nadir Bourgeois MD [address] [place] [address] 36430 04/29/2025 7:15 AM EST Office Visit [facility] Cardiopulmonary Rehabilitation [address] [place] [address] Nadir Bourgeois MD [address] [place] [address] 85677 05/02/2025 7:15 AM EST Office Visit [facility] Cardiopulmonary Rehabilitation [address] [place] [address] Nadir Bourgeois MD [address] [place] [address] 84140 05/04/2025 7:15 AM EST Office Visit [facility] Cardiopulmonary Rehabilitation [address] [place] [address] Nadir Bourgeois MD [address] [place] [address] [phone] 05/06/2025 7:15 AM EST Office Visit [facility] Cardiopulmonary Rehabilitation [address] [place] [address] 8[address] Nadir Bourgeois MD [address] [place] [address] 85767 05/09/2025 7:15 AM EST Office Visit [facility] Cardiopulmonary Rehabilitation [address] [place] [address] Nadir Bourgeois MD [address] [place] [address] [phone] 05/11/2025 7:15 AM EST Office Visit [facility] Cardiopulmonary Rehabilitation [address] [place] [address] Nadir Bourgeois MD [address] [place] [address] 18515 05/13/2025 7:15 AM EST Office Visit [facility] Cardiopulmonary Rehabilitation [address] [place] [address] Nadir Bourgeois MD [address] [place] [address] 30787 05/16/2025 7:15 AM EST Office Visit [facility] Cardiopulmonary Rehabilitation [address] [place] [address] Nadir Bourgeois MD [address] [place] [address] 79165 05/18/2025 7:15 AM EST Office Visit [facility] Cardiopulmonary Rehabilitation [address] [place] [address] Nadir Bourgeois MD [address] [place] [address] 27087 05/20/2025 7:15 AM EST Office Visit [facility] Cardiopulmonary Rehabilitation [address] [place] [address] Nadir Bourgeois MD [address] [place] [address] 63099 05/23/2025 7:15 AM EST Office Visit [facility] Cardiopulmonary Rehabilitation [address] [place] [address] Nadir Bourgeois MD [address] [place] [address] 92752 05/25/2025 7:15 AM EST Office Visit [facility] Cardiopulmonary Rehabilitation [address] [place] [address] Nadir Bourgeois MD [address] [place] [address] 96886 05/27/2025 7:15 AM EST Office Visit [facility] Cardiopulmonary Rehabilitation [address] [place] [address] Nadir Bourgeois MD [address] [place] [address] [phone] 05/30/2025 7:15 AM EST Office Visit [facility] Cardiopulmonary Rehabilitation [address] [facility] [place] [address] Nadir Bourgeois MD [address] [place] [address] 46867 06/01/2025 7:15 AM EST Office Visit [facility] Cardiopulmonary Rehabilitation [address] [place] [address] Nadir Bourgeois MD [address] [place] [address] 28254 06/03/2025 7:15 AM EST Office Visit [facility] Cardiopulmonary Rehabilitation [address] [place] [address] Nadir Bourgeois MD [address] [place] [address] 839[address] 08/23/2025 8:20 AM EST Office Visit [facility] [address] [place] [address], [address] [place] [address] Jaden Taveras MD [address] [place] [address] 56[address] 09/02/2025 8:40 AM EDT Office Visit [address], [address] [place] [address] Nadir Bourgeois MD [address] [place] [address] 19541 10/31/2025 10:15 AM EDT Appointment Echo Lab [address] [place] [address] Nadir Bourgeois MD [address] [place] [address] [phone] 11/11/2025 11:20 AM EDT Office Visit [facility] [address] [facility] [address], [address] [place] [address] Nadir Bourgeois MD [address] [place] [address] [email or web address] documented as of this encounter Results * TTE COMPREHENSIVE (01/14/2024 8:49 AM EDT) Body Surface Area 1.94 m2 Height 177 cm Weight 77 kg Systolic BP 110 mmHg Diastolic BP 50 mmHg Left Atrium Dimension Anterior-Posterior 35 15 - 40 mm Aortic Valve Peak Velocity 353.0 cm/s Aortic Valve Peak Gradient 50 mmHg Aortic Valve Mean Gradient 28 mmHg Aortic Valve Time Velocity Integral 738.0 mm Aortic Sinus Diameter 37 <40 mm Ascending Aorta Diameter 38 <36 mm Interventricular Septum Thickness 11 6 - 11 mm Left Ventricle Internal Diameter End Diastole 48 42 - 58 mm Left Ventricle Internal Diameter End Systole 33 <40 mm Left Ventricular Outflow Tract Diameter 20.0 mm LVOT VTI REST 239.0 mm Left Ventricular Outflow Tract Velocity 1.1 m/s Left Ventricular Outflow Tract Gradient at Rest 5 mmHg Left Ventricular Posterior Wall Thickness 11 6 - 11 mm Ejection Fraction 58 50 - 75 Percent Mitral Valve A Wave Speed 102.0 cm/s Mitral Valve E Wave Speed 66.0 cm/s Right Ventricle Basal Diameter 32 25 - 41 mm Tricuspid Valve Peak Velocity 2.3 m/s Raw LV EF% 53 % Relative Wall Thickness 0.46 0.22 - 0.42 Aortic Valve Prosthetic Peak Gradient 50 mmHg Aortic Valve Sinus Index by BSA 19 mm/m2 Aorta Sinus Index by Height 2.09 cm/m Aorta Sinus CSA index by Height 6.07 cm2/m Ascending Aorta Index 20 mm/m2 Asc Aorta CSA Index by Height 6.40 cm2/m Ascending Aorta Index 20 mm Aortic Sinus Index 19 mm Ascending Aorta Diameter 20 mm Aortic Valve Sinus Index 1 19 20 - 32 mm AO ASC DIAM BSA INDEX 19.59 Left Atrial Volume Index 32 16 - 34 mL/m2 Left Ventricle Ea Lateral Wave Speed 7.1 cm/s Right Ventricle TAPSE 30 >=17 mm MV E/E' Tissue Velocity Lateral 9.30 Right Ventricle Pulse Doppler S Wave 14.4 >=9.5 cm/s Left Ventricle E Wave Speed 66.0 cm/s Left Ventricle A Wave Speed 102.0 cm/s MV E/A ratio 0.6 Left Ventricle Ea Septal Wave Speed 6.9 cm/s MV E/e' septal 9.57 Left Ventricle E/e' Average 9.4 Left Atrial Volume 62 mL Left Atrial Volume Index by Height 35 mL/m Right Atrium Area 17 cm2 Right Atrium Area index 9 cm2/m2 Aortic Valve Prosthetic Mean Gradient 28 mmHg Echo E/Ea 9.57 Right Ventricle to Right Atrium Pressure Gradient 21 mmHg Right Ventricle Peak Systolic Pressure (Assuming RAP 10) 31 mmHg MGB CV ECHO TV RVSP (ASSUMING RAP OF 5) 26 mmHg RVSP (Exclusive of RAP) 21 mmHg Right Ventricle Peak Systolic Pressure 21 mmHg Right Atrium Pressure Estimated 0 mmHg Anatomical Region Laterality Modality Heart Ultrasound Narrative 01/14/2024 10:17 AM EDT Borderline LVH with normal LV systolic function EF 60%. Normal RV size and function. Normal diastolic function for age. There is moderate aortic stenosis peak velocity 3.5 m/s mean gradient 28 mmHg. Normal PA pressure estimation. Compared to prior study from 2020, there has been some progression of the aortic stenosis. Left Ventricle The left ventricle is normal in size. There is normal wall thickness. There is normal left ventricular systolic function. The LV ejection fraction is 58% (calculated via the single dimension method). There are no wall motion abnormalities. The e' septal wave velocity is 6.9 cm/s. The e' lateral wave velocity is 7.1 cm/s. The average E/e' ratio is 9.4. Right Ventricle The right ventricle is normal in size. The RV basal dimension is 32 mm. There is normal right ventricular systolic function. TAPSE is 30 mm. RV S' wave is 14.4 cm/s. Left Atrium The left atrium is normal in size. The left atrial anterior-posterior dimension is 35 mm. The left atrial volume index by BSA is 32 mL/m2. There are normal flow patterns in the pulmonary vein. Right Atrium The right atrium is normal in size. The right atrial area is 17 cm2. The IVC is suboptimally visualized (RA pressure not estimated). Mitral Valve There is no obvious structural abnormality. There is no mitral stenosis. There is mild mitral regurgitation. Tricuspid Valve There is no obvious structural abnormality. There is no tricuspid stenosis. There is moderate tricuspid regurgitation. The RV systolic pressure was calculated at 21 mmHg (using TR peak velocity of 2.3 m/s and assuming an RA pressure of 0 mmHg). Normal pulmonary pressure. Aortic Valve The aortic valve is tricuspid. Multiple leaflets are thickened. There is severe aortic stenosis. AoV peak PG is 50mmHg. AoV mean PG is 28mmHg. The visualized portions of the thoracic aorta appear normal in size. Pulmonic Valve The pulmonic valve appears normal. There is no pulmonic stenosis. There is no pulmonic regurgitation. Pericardium There is no pericardial effusion. General Findings Technically adequate echocardiogram. Technique(s) used in the evaluation: Color flow Doppler and Spectral Doppler. The predominant rhythm during the study was sinus. Comparison Findings Compared to prior TTE on 08/30/2020, IAS/IVS The interatrial septum appears normal. Taco Molina DO CV ECHO ORDERABLES Final Result documented in this encounter Visit Diagnoses Diagnosis Nonrheumatic aortic (valve) stenosis- Primary Nonrheumatic aortic (valve) stenosis documented in this encounter Care Teams Wiper Blender Relationship Specialty Start Date End Date Taco Molina DO PCP - General Internal Medicine 11/11/17 01/25/25 Taco Molina DO [address] [place] [address] PCP - General Internal Medicine 01/26/25 documented as of this encounter Additional Source Comments The information contained in this document represents components of the legal health record. It is not the complete legal health record.[facility]
--- OUTSIDE RECORDS SUMMARY | 2025-03-16 18:11 | XMS_ITS | Encounter Summary ---
Author Organization [facility] Address [address] [facility] [address] [place] [address] Phone Care Team Providers Care Slate Cutter Operator Name Role Phone Taco Molina DO Primary Care Provider [phone] Taco Molina DO Primary Care Provider [phone] Encounter Details Date Type Department Care Team ([facility] st Contact Info) Description 06/08/2024 Transcribe Orders [facility] [address] [place] [address] Taco Molina DO [address] [facility] [place] [address] [place] [address] [email or web address] Anemia, unspecified type (Primary Dx); Hypertension, essential Social History Tobacco Use Types Packs/Day Years [...] Info) Description 12/27/2024 Procedure Pass Echo Lab [address] [place] [address] 03/18/2025 7:15 AM EDT Office Visit [facility] Cardiopulmonary Rehabilitation [address] [place] [address] Nadir Bourgeois MD [address] [place] [address] 78787 03/21/2025 7:15 AM EDT Office Visit [facility] Cardiopulmonary [address] [address] Nadir Bourgeois MD [address] [place] [address] 81150 03/23/2025 7:15 AM EDT Office Visit [facility] Cardiopulmonary Rehabilitation [address] [place] [address] Nadir Bourgeois MD [address] [place] [address] 31845 03/25/2025 7:15 AM EDT Office Visit [facility] Cardiopulmonary Rehabilitation [address] [place] [address] 97[address] Nadir Bourgeois MD [address] [place] [address] 73934 03/28/2025 7:15 AM EDT Office Visit [facility] Cardiopulmonary Rehabilitation [address] [place] [address] Nadir Bourgeois MD [address] [place] [address] 08221 03/30/2025 7:15 AM EDT Office Visit [facility] Cardiopulmonary Rehabilitation [address] [place] [address] Nadir Bourgeois MD [address] [place] [address] 04493 04/01/2025 7:15 AM EDT Office Visit [facility] Cardiopulmonary Rehabilitation [address] [place] [address] Nadir Bourgeois MD [address] [place] [address] 33413 04/04/2025 7:15 AM EDT Office Visit [facility] Cardiopulmonary Rehabilitation [address] [place] [address] Nadir Bourgeois MD [address] [place] [address] 05142 04/06/2025 7:15 AM EDT Office Visit [facility] Cardiopulmonary Rehabilitation [address] [place] [address] Nadir Bourgeois MD [address] [place] [address] 49084 04/08/2025 7:15 AM EDT Office Visit [facility] Cardiopulmonary Rehabilitation [address] [place] [address] Nadir Bourgeois MD [address] [place] [address] 86862 04/11/2025 7:15 AM EDT Office Visit [facility] Cardiopulmonary Rehabilitation [address] [place] [address] Nadir Bourgeois MD [address] [place] [address] 16648 04/13/2025 7:15 AM EDT Office Visit [facility] Cardiopulmonary Rehabilitation [address] [place] [address] Nadir Bourgeois MD [address] [place] [address] 61835 04/15/2025 7:15 AM EDT Office Visit [facility] Cardiopulmonary Rehabilitation [address] [place] [address] Nadir Bourgeois MD [address] [place] [address] 58382 04/18/2025 7:15 AM EDT Office Visit [facility] Cardiopulmonary Rehabilitation [address] [place] [address] 22[address] Nadir Bourgeois MD [address] [place] [address] 23810 04/20/2025 7:15 AM EDT Office Visit [facility] Cardiopulmonary Rehabilitation [address] [place] [address] Nadir Bourgeois MD [address] [place] [address] 45357 04/20/2025 2:00 PM EDT Office Visit [facility] [address] [place] [address] 3rd Floor, [address] [place] [address] Macrina Pearson, JU [address] [facility], [address] [place] [address] 04/22/2025 7:15 AM EDT Office Visit [facility] Cardiopulmonary Rehabilitation [address] [place] [address] Nadir Bourgeois MD [address] [place] [address] 22052 04/25/2025 7:15 AM EST Office Visit [facility] Cardiopulmonary Rehabilitation [address] [place] [address] 27207 Nadir Bourgeois MD [address] [place] [address] 92400 04/27/2025 7:15 AM EST Office Visit [facility] Cardiopulmonary Rehabilitation [address] [place] [address] 02[address] Nadir Bourgeois MD [address] [place] [address] 92934 04/29/2025 7:15 AM EST Office Visit [facility] Cardiopulmonary [address] [address] Nadir Bourgeois MD [address] [place] [address] 21358 05/02/2025 7:15 AM EST Office Visit [facility] Cardiopulmonary Rehabilitation [address] [place] [address] 485[address] Nadir Bourgeois MD [address] [place] [address] 83249 05/04/2025 7:15 AM EST Office Visit [facility] Cardiopulmonary Rehabilitation [address] [place] [address] 801[address] Nadir Bourgeois MD [address] [place] [address] 75477 05/06/2025 7:15 AM EST Office Visit [facility] Cardiopulmonary Rehabilitation [address] [place] [address] 378[address] Nadir Bourgeois MD [address] [place] [address] 34824 05/09/2025 7:15 AM EST Office Visit [facility] Cardiopulmonary Rehabilitation [address] [place] [address] Nadir Bourgeois MD [address] [place] [address] 60128 05/11/2025 7:15 AM EST Office Visit [facility] Cardiopulmonary Rehabilitation [address] [place] [address] 04461 Nadir Bourgeois MD [address] [place] [address] 47034 05/13/2025 7:15 AM EST Office Visit [facility] Cardiopulmonary Rehabilitation [address] [place] [address] 67842 Nadir Bourgeois MD [address] [place] [address] 22163 05/16/2025 7:15 AM EST Office Visit [facility] Cardiopulmonary Rehabilitation [address] [place] [address] 575[address] Nadir Bourgeois MD [address] [place] [address] 66677 05/18/2025 7:15 AM EST Office Visit [facility] Cardiopulmonary Rehabilitation [address] [place] [address] 88[address] Nadir Bourgeois MD [address] [place] [address] 76446 05/20/2025 7:15 AM EST Office Visit [facility] Cardiopulmonary Rehabilitation [address] [place] [address] 51855 Nadir Bourgeois MD [address] [place] [address] 93326 05/23/2025 7:15 AM EST Office Visit [facility] Cardiopulmonary Rehabilitation [address] [place] [address] Nadir Bourgeois MD [address] [place] [address] 05582 05/25/2025 7:15 AM EST Office Visit [facility] Cardiopulmonary Rehabilitation [address] [place] [address] Nadir Bourgeois MD [address] [place] [address] 43131 05/27/2025 7:15 AM EST Office Visit [facility] Cardiopulmonary Rehabilitation [address] [place] [address] 11328 Nadir Bourgeois MD [address] [place] [address] 49114 05/30/2025 7:15 AM EST Office Visit [facility] Cardiopulmonary Rehabilitation [address] [place] [address] 34872 Nadir Bourgeois MD [address] [place] [address] 35794 06/01/2025 7:15 AM EST Office Visit [facility] Cardiopulmonary Rehabilitation [address] [place] [address] 34[address] Nadir Bourgeois MD [address] [place] [address] 49961 06/03/2025 7:15 AM EST Office Visit [facility] Cardiop[facility] Rehabilitation [address] [place] [address] Nadir Bourgeois MD [address] [place] [address] 06926 08/23/2025 8:20 AM EST Office Visit [address] [facility], [address] [place] [address] Jaden Taveras MD [address] [place] [address] 057[address] 09/02/2025 8:40 AM EDT Office Visit [address] [place] [address], [address] [place] [address] Nadir Bourgeois MD [address] [place] [address] 34447 10/31/2025 10:15 AM EDT Appointment Echo Lab [address] [address] Nadir Bourgeois MD [address] [place] [address] 42071 11/11/2025 11:20 AM EDT Office Visit [address] [place] [address], [address] [place] [address] Nadir Bourgeois MD [address] [place] [address] Scheduled Orders Name Type Priority Associated Diagnoses Orde r Schedule Comprehensive metabolic panel Lab Routine Anemia, unspecified type Hypertension, essential Every 6 months for 2 Occurrences starting 06/08/2024 until 06/08/2025, 1 completed CBC Lab Routine Anemia, unspecified type Hypertension, essential Every 6 months for 2 Occurrences starting 06/08/2024 until 06/08/2025, 1 completed Lipid panel Lab Routine Anemia, unspecified type Hypertension, essential Every 6 months for 2 Occurrences starting 06/08/2024 until 06/08/2025, 1 completed documented as of this encounter Results * (ABNORMAL) Lipid panel (06/08/2024 7:47 AM EST) HDL 88 mg/dL [facility] Comment: Interpretation <40 mg/dL: Low HDL cholesterol (major risk factor for CHD) Greater than or equal to 60 mg/dL: High HDL cholesterol ( negative risk factor for CHD) HDL - cholesterol is affected by a number of factors, e.g. smoking, excerise, hormones, sex and age. CHOLESTEROL 185 0 - 240 mg/dL [facility] TRIGLYCERIDES 57 30 - 160 mg/dL [facility] LDL 86 50 - 129 mg/dL [facility] Comment: LDL levels in terms of risk for coronary heart disease: <100 mg/dL: Optimal 100-129 mg/dL: Near or above optimal 130-159 mg/dL: Borderline high 160-189 mg/dL: High >190 mg/dL: Very High CARDIAC RISK RATIO 2.1(L) 3.4 - 5.0 C [facility] Blood 06/08/2024 7:47 AM EST 06/08/2024 7:51 AM EST us Taco A Bigda DO LAB BLOOD ORDERABLES Final Resul t [address] [address] * (ABNORMAL) CBC (06/08/2024 7:47 AM EST) WBC 5.68 4.00 - 11.00 K/uL [facility] RBC 3.96(L) 4.50 - 5.90 M/uL [facility] HGB 12.9(L) 13.5 - 17.5 g/dL [facility] HCT 38.8(L) 41.0 - 53.0 % [facility] PLT 225 150 - 450 K/uL [facility] MCV 98.0 80.0 - 100.0 fL [facility] MCH 32.6(H) 27.0 - 31.0 pg [facility] MCHC 33.2 32.0 - 36.0 g/dL [facility] RDW 13.2 11.5 - 14.5 % [facility] MPV 9.8 8.4 - 12.0 fL [facility] NRBC 0.00 0.00 /100 WBCs [facility] ABSOLUTE NRBC 0.00 0.00 K/uL [facility] Blood 06/08/2024 7:47 AM EST 06/08/2024 7:51 AM EST us Taco A Bigda DO LAB BLOOD ORDERABLES Final Resul t Performing Organization Address City/State/[facility] Co de Phone Number [facility] [address] [place] [address] * (ABNORMAL) Comprehensive metabolic panel (06/08/2024 7:47 AM EST) SODIUM 137 133 - 146 mmol/L [facility] POTASSIUM 4.3 3.3 - 5.1 mmol/L [facility] CHLORIDE 101 96 - 108 mmol/L [facility] CO2 27 21 - 35 mmol/L [facility] BUN 14 6 - 19 mg/dL [facility] CREATININE 0.60 0.5 - 1.5 mg/dL [facility] GLUCOSE 93 70 - 99 mg/dL [facility] ALBUMIN 4.4 3.9 - 4.8 g/dL [facility] TOTAL PROTEIN 7.0 6.5 - 8.0 g/dL [facility] CALCIUM 9.3 8.4 - 10.3 mg/dL [facility] ALKALINE PHOSPHATASE 56 39 - 117 U/L [facility] TOTAL BILIRUBIN 1.5(H) 0.0 - 1.2 mg/dL [facility] AST 29 0 - 37 U/L [facility] ALT 19 0 - 40 U/L [facility] GLOBULIN 2.6 1 - 4.8 g/dL [facility] EGFR 96 >59 mL/min/1.7 3m2 [facility] Comment:Estimated glomerular filtration rate calculated using the CKD-EPI refit equation. ANION GAP 13 10 - 20 mmol/L [facility] Blood 06/08/2024 7:47 AM EST 06/08/2024 7:51 AM EST us Taco Molina DO LAB BLOOD ORDERABLES Final Resul t [facility] [address] [place] [address] documented in this encounter Visit Diagnoses Diagnosis Anemia, unspecified type- Primary Hypertension, essential Unspecified essential hypertension documented in this encounter Care Teams Slate Cutter Operator Relationship Specialty Start Date End Date Taco Molina DO PCP - General Internal Medicine 11/11/17 01/25/25 Taco Molina DO [address] [place] [address] PCP - General Internal Medicine 01/26/25 documented as of this encounter Additional Source Comments The information contained in this document represents components of the legal health record. It is not the complete legal health record.[facility]
--- OUTSIDE RECORDS SUMMARY | 2025-03-16 18:11 | XMS_ITS | Encounter Summary ---
Author Organization [facility] Address [address] [place] [address] [place] [address] Phone Care Team Providers Care Graphite Disk Assembler Name Role Phone Taco Molina Primary Care Provider [phone] DilipTaco norman Primary Care Provider Encounter Details Date Type Department Care Team (Late st Contact Info) Description 12/27/2024 Procedure Pass Echo Lab [address] [place] [address] Social History Tobacco Use Types Packs/Day Years [...] Info) Description 12/27/2024 Procedure Pass Echo Lab [address] [place] [address] 03/18/2025 7:15 AM EDT Office Visit [facility] Cardiopulmonary Rehabilitation [address] [place] [address] Nadir Bourgeois MD [address] [place] [address] 89752 03/21/2025 7:15 AM EDT Office Visit [facility] Cardiopulmonary [address] [address] Nadir Bourgeois MD [address] [place] [address] 34422 03/23/2025 7:15 AM EDT Office Visit [facility] Cardiopulmonary Rehabilitation [address] [place] [address] Nadir Bourgeois MD [address] [place] [address] 74962 03/25/2025 7:15 AM EDT Office Visit [facility] Cardiopulmonary Rehabilitation [address] [place] [address] Nadir Bourgeois MD [address] [place] [address] 64254 03/28/2025 7:15 AM EDT Office Visit [facility] Cardiopulmonary Rehabilitation [address] [place] [address] Nadir Bourgeois MD [address] [place] [address] 42041 03/30/2025 7:15 AM EDT Office Visit [facility] Cardiopulmonary Rehabilitation [address] [place] [address] Nadir Bourgeois MD [address] [place] [address] 76744 04/01/2025 7:15 AM EDT Office Visit [facility] Cardiopulmonary Rehabilitation [address] [place] [address] Nadir Bourgeois MD [address] [place] [address] 18660 04/04/2025 7:15 AM EDT Office Visit [facility] Cardiopulmonary Rehabilitation [address] [place] [address] Nadir Bourgeois MD [address] [place] [address] 13550 04/06/2025 7:15 AM EDT Office Visit [facility] Cardiopulmonary Rehabilitation [address] [place] [address] Nadir Bourgeois MD [address] [place] [address] 11069 04/08/2025 7:15 AM EDT Office Visit [facility] Cardiopulmonary Rehabilitation [address] [place] [address] Nadir Bourgeois MD [address] [place] [address] 78723 04/11/2025 7:15 AM EDT Office Visit [facility] Cardiopulmonary Rehabilitation [address] [place] [address] Nadir Bourgeois MD [address] [place] [address] 78508 04/13/2025 7:15 AM EDT Office Visit [facility] Cardiopulmonary Rehabilitation [address] [place] [address] Nadir Bourgeois MD [address] [place] [address] 91777 04/15/2025 7:15 AM EDT Office Visit [facility] Cardiopulmonary Rehabilitation [address] [place] [address] Nadir Bourgeois MD [address] [place] [address] 82194 04/18/2025 7:15 AM EDT Office Visit [facility] Cardiopulmonary Rehabilitation [address] [place] [address] Nadir Bourgeois MD [address] [place] [address] 33894 04/20/2025 7:15 AM EDT Office Visit [facility] Cardiopulmonary Rehabilitation [address] [place] [address] Nadir Bourgeois MD [address] [place] [address] 53698 04/20/2025 2:00 PM EDT Office Visit [facility] [address] [place] [address] 3rd Floor, [address] [place] [address] Macrina Pearson DNP [address] [place] [address], [address] [address] 04/22/2025 7:15 AM EDT Office Visit [facility] Cardiopulmonary Rehabilitation [address] [place] [address] Nadir Bourgeois MD [address] [place] [address] 41247 04/25/2025 7:15 AM EST Office Visit [facility] Cardiopulmonary Rehabilitation [address] [place] [address] Nadir Bourgeois MD [address] [place] [address] 90468 04/27/2025 7:15 AM EST Office Visit [facility] Cardiopulmonary Rehabilitation [address] [place] [address] 70632 Nadir Bourgeois MD [address] [place] [address] 51878 04/29/2025 7:15 AM EST Office Visit [facility] Cardiopulmonary Rehabilitation [address] [place] [address] Nadir Bourgeois MD [address] [place] [address] 04865 05/02/2025 7:15 AM EST Office Visit [facility] Cardiopulmonary Rehabilitation [address] [place] [address] 632[address] Nadir Bourgeois MD [address] [place] [address] 08163 05/04/2025 7:15 AM EST Office Visit [facility] Cardiopulmonary Rehabilitation [address] [place] [address] 506[address] Nadir Bourgeois MD [address] [place] [address] 73286 05/06/2025 7:15 AM EST Office Visit [facility] Cardiopulmonary Rehabilitation [address] [place] [address] 35799 Nadir Bourgeois MD [address] [place] [address] 45035 05/09/2025 7:15 AM EST Office Visit [facility] Cardiopulmonary Rehabilitation [address] [place] [address] Nadir Bourgeois MD [address] [place] [address] 49952 05/11/2025 7:15 AM EST Office Visit [facility] Cardiopulmonary Rehabilitation [address] [place] [address] Nadir Bourgeois MD [address] [place] [address] 45807 05/13/2025 7:15 AM EST Office Visit [facility] Cardiopulmonary Rehabilitation [address] [place] [address] Nadir Bourgeois MD [address] [place] [address] 37528 05/16/2025 7:15 AM EST Office Visit [facility] Cardiopulmonary Rehabilitation [address] [place] [address] 426[address] Nadir Bourgeois MD [address] [place] [address] 26792 05/18/2025 7:15 AM EST Office Visit [facility] Cardiopulmonary Rehabilitation [address] [place] [address] Nadir Bourgeois MD [address] [place] [address] 80149 05/20/2025 7:15 AM EST Office Visit [facility] Cardiopulmonary Rehabilitation [address] [place] [address] 27[address] Nadir Bourgeois MD [address] [place] [address] 51600 05/23/2025 7:15 AM EST Office Visit [facility] Cardiopulmonary Rehabilitation [address] [place] [address] 46499 Nadir Bourgeois MD [address] [place] [address] 89753 05/25/2025 7:15 AM EST Office Visit [facility] Cardiopulmonary Rehabilitation [address] [place] [address] 011[address] Nadir Bourgeois MD [address] [place] [address] 13126 05/27/2025 7:15 AM EST Office Visit [facility] Cardiopulmonary Rehabilitation [address] [place] [address] 16[address] Nadir Bourgeois MD [address] [place] [address] 76463 05/30/2025 7:15 AM EST Office Visit [facility] Cardiopulmonary Rehabilitation [address] [place] [address] 246[address] Nadir Bourgeois MD [address] [place] [address] 90423 06/01/2025 7:15 AM EST Office Visit [facility] Cardiopulmonary Rehabilitation [address] [place] [address] 540[address] Nadir Bourgeois MD [address] [place] [address] 83845 06/03/2025 7:15 AM EST Office Visit [facility] Cardiopulmonary Rehabilitation [address] [place] [address] 76[address] Nadir Bourgeois MD [address] [place] [address] 66415 08/23/2025 8:20 AM EST Office Visit [facility] [address] [place] [address], [address] [place] [address] Jaden Taveras MD [address] [place] [address] 64489 09/02/2025 8:40 AM EDT Office Visit [address] [place] [address], [address] [place] [address] Nadir Bourgeois MD [address] [place] [address] 63254 10/31/2025 10:15 AM EDT Appointment Echo Lab [address] [address] Nadir Bourgeois MD [address] [place] [address] [phone] 11/11/2025 11:20 AM EDT Office Visit [address], [address] [place] [address] 15[address] Nadir Bourgeois MD [address] [place] [address] 35176 documented as of this encounter Visit Diagnoses Not on filedocumented in this encounter Care Teams Graphite Disk Assembler Relationship Specialty Start Date End Date Taco Molina DO PCP - General Internal Medicine 11/11/17 01/25/25 Taco Molina DO [address] [place] [address] [place] [address] [email or web address] PCP - General Internal Medicine 01/26/25 documented as of this encounter Additional Source Comments The information contained in this document represents components of the legal health record. It is not the complete legal health record.[facility]
--- OUTSIDE RECORDS SUMMARY | 2025-03-16 18:12 | XMS_ITS | Encounter Summary ---
Author Organization [facility] Address [address] [facility] [address] [place] [id number] Phone Care Team Providers Care Program Project Manager Name Role Phone Dilipester Taco Angy HAUSER Primary Care Provider [phone] Encounter Details Date Type Department Care Team (Latest Contact Info) Description 03/11/2025 Plan of Care Documentation [facility] Cardiopulmonary Rehabilitation [address] [place] [address] Social History Tobacco Use Types Packs/Day Years [...] PM EDT documented as of this encounter Miscellaneous Notes * Outpatient Rehab Plan of Care - Kala Molina RN - 03/11/2025 2:07 PM EDT Initial Individualized Treatment Plan - Cardiac Rehabilitation Exercise Assessment ITP: 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 DASI Score: 42.7 (METS7.99) Minutes/Week of Exercise : 120 Functional Activity Status: active Risk Stratification: High Number of Telemetry Sessions: 36 Exercise Plan Exercise Goals Self monitor target heart rate range/RPE; Attend cardiac rehab sessions 3x/week; Decreased RPE at sub-max exercise capacity; Verbalize understanding of safe exercise parameters; Increased MET level; Begin home exercise program Interventions Exercise Prescription Mode: NuStep; Recumbent Bicycle; Treadmill Frequency: Three times per week Duration: 30-45 min per session Intensity: moderate Progression: as patient tolerates Target HR Range: Baseline +20-40 Target RPE Range: 3-5 range Target METs Range: 4-6 range Resistance Training: Upper Extremities Exercise Education Home Exercise Education; Exercise Safety; Understanding RPE scale; Signs and symptoms to report; Exercise benefits & precautions; Weather & environmental safety Nutrition Assessment Weight: 77.1 kg (170 lb) Lab (last value) TC: 185 Lab (last value) T Lab (last value) HDL: 88 Lab (last value) LDL: 86 Alcohol Intake: Daily Number of Alcohol Drinks/Day: 2 Drinks/day Number of Alcohol Drinks/Week: 8 Drinks/Week Sodium restriction: No Sodium restriction amount: 0 mg/day (no sodium added) Caffeine Intake: decaf coffee only Rate Your Plate- Heart score: 0 (Medit diet score 11) Nutrition Plan Nutrition Goals Max dose high intensity statins; Demonstrates adherence to the Therapeutic Lifestyle Change diet; Demonstrates adherence to DASH diet; Alcohol intake per guidelines Interventions Provide guidelines per diet recommendation Education DASH diet; Therapeutic Lifestyle Change diet; Strategies for Dining Out on a Heart Healthy diet Psychosocial Assessment PHQ-9 Score: 1 [facility] Quality of Life: 24 Social Support: Yes Social Isolation: No Sleep Routine: Rested Psychosocial Plan Psychosocial Goals Verbalizes awareness of the relationship between stress and CAD; Verbalizes feeling less stressed; Verbalizes improved sleep Interventions Provide individual coaching/psychosocial support to patients to assist in lifestyle change Education Effective Communication Skills Hypertension Assessment Hypertension: Yes Pre-hypertension: No Self-monitor blood pressure: Yes Overweight: No Stress: No Hypertension Plan Hypertension Goals Self-monitor home blood pressure and record readings; Compliant taking blood pressure medication asdirected; Goal SBP <130 mmHg and DBP <80mmHg Interventions Counseled in specific ways to better manage stress including regular relaxation techniques, cognitive skills, and effective communication skills Education Hypertension Education Hypertension education Medication Assessment Medication administration system: Yes Adheres to prescribed medication plan: Yes Has understanding of prescribed medications: Yes Carries a medication list: Yes Is the patient on Max dose high intensity statins: Yes Medication Plan Medication Goals Carries a medication list Interventions Provide updated medication list Education Provide written information on specific medications PROVIDER ATTESTATION I have reviewed and agree with the Individual treatment Plan: goals/progress/outcomes. documented in this encounter Plan of Treatment Upcoming Encounters Date Type Department Care Team (Late st Contact Info) Description 12/27/2024 Procedure Pass [facility] [place] [place] [address] 03/18/2025 7:15 AM EDT Office Visit [facility] Cardiopulmonary Rehabilitation [address] [place] [phone] Nadir Bourgeois MD [address] [place] [phone] 03/21/2025 7:15 AM EDT Office Visit [facility] Cardiopulmonary Rehabilitation [address] [place] [phone] Nadir Bourgeois MD [address] [place] [address] [phone] 03/23/2025 7:15 AM EDT Office Visit [facility] Cardiopulmonary Rehabilitation [address] [place] [address] Nadir Bourgeois MD [address] [place] [address] [phone] 03/25/2025 7:15 AM EDT Office Visit [facility] Cardiopulmonary Rehabilitation [address] [place] [address] Nadir Bourgeois MD [address] [place] [address] [phone] 03/28/2025 7:15 AM EDT Office Visit [facility] Cardiopulmonary Rehabilitation [address] [place] [address] Nadir Bourgeois MD [address] [place] [address] [phone] 03/30/2025 7:15 AM EDT Office Visit [facility] Cardiopulmonary Rehabilitation [address] [place] [address] Nadir Bourgeois MD [address] [place] [address] 73198 04/01/2025 7:15 AM EDT Office Visit [facility] Cardiopulmonary Rehabilitation [address] [place] [phone] Nadir Bourgeois MD [address] [place] [address] [phone] 04/04/2025 7:15 AM EDT Office Visit [facility] Cardiopulmonary Rehabilitation [address] [place] [address] Nadir Bourgeois MD [address] [place] [address] [phone] 04/06/2025 7:15 AM EDT Office Visit [facility] Cardiopulmonary Rehabilitation [address] [place] [address] Nadir Bourgeois MD [address] [place] [address] [phone] 04/08/2025 7:15 AM EDT Office Visit [facility] Cardiopulmonary Rehabilitation [address] [place] [phone] Nadir Bourgeois MD [address] [place] [address] [phone] 04/11/2025 7:15 AM EDT Office Visit [facility] Cardiopulmonary Rehabilitation [address] [place] [address] [phone] Nadir Bourgeois MD [address] [place] [address] [phone] 04/13/2025 7:15 AM EDT Office Visit [facility] Cardiopulmonary Rehabilitation [address] [place] [phone] Nadir Bourgeois MD [address] [place] [address] [phone] 04/15/2025 7:15 AM EDT Office Visit [facility] Cardiopulmonary Rehabilitation [address] [place] [phone] Nadir Bourgeois MD [address] [place] [address] [phone] 04/18/2025 7:15 AM EDT Office Visit [facility] Cardiopulmonary Rehabilitation [address] [place] [phone] Nadir Bourgeois MD [address] [place] [address] [phone] 04/20/2025 7:15 AM EDT Office Visit [facility] Cardiopulmonary Rehabilitation [address] [place] [phone] Nadir Bourgeois MD [address] [place] [address] [phone] 04/20/2025 2:00 PM EDT Office Visit [facility] [address] [place] [address] [address]rd Floor, [address] [place] [phone] Macrina Pearson DNP [address] [facility], [address] [place] [address] [phone] 04/22/2025 7:15 AM EDT Office Visit [facility] Cardiopulmonary Rehabilitation [address] [place] [address] Nadir Bourgeois MD [address] [place] [address] [phone] 04/25/2025 7:15 AM EST Office Visit [facility] Cardiopulmonary Rehabilitation [address] [place] [address] Nadir Bourgeois MD [address] [place] [address] [phone] 04/27/2025 7:15 AM EST Office Visit [facility] Cardiopulmonary Rehabilitation [address] [place] [address] Nadir Bourgeois MD [address] [place] [address] [phone] 04/29/2025 7:15 AM EST Office Visit [facility] Cardiopulmonary Rehabilitation [address] [place] [address] Nadir Bourgeois MD [address] [place] [address] [phone] 05/02/2025 7:15 AM EST Office Visit [facility] Cardiopulmonary Rehabilitation [address] [place] [address] Nadir Bourgeois MD [address] [place] [address] [phone] 05/04/2025 7:15 AM EST Office Visit [facility] Cardiopulmonary Rehabilitation [address] [place] [address] Nadir Bourgeois MD [address] [place] [address] [phone] 05/06/2025 7:15 AM EST Office Visit [facility] Cardiopulmonary Rehabilitation [address] [place] [address] Nadir Bourgeois MD [address] [place] [address] [phone] 05/09/2025 7:15 AM EST Office Visit [facility] Cardiopulmonary Rehabilitation [address] [place] [phone] Nadir Bourgeois MD [address] [place] [address] [phone] 05/11/2025 7:15 AM EST Office Visit [facility] Cardiopulmonary Rehabilitation [address] [place] [address] [phone] Nadir Bourgeois MD [address] [place] [address] [phone] 05/13/2025 7:15 AM EST Office Visit [facility] Cardiopulmonary Rehabilitation [address] [place] [address] [phone] Nadir Bourgeois MD [address] [place] [address] [phone] 05/16/2025 7:15 AM EST Office Visit [facility] Cardiopulmonary Rehabilitation [address] [place] [address] [phone] Nadir Bourgeois MD [address] [place] [address] [phone] 05/18/2025 7:15 AM EST Office Visit [facility] Cardiopulmonary Rehabilitation [address] [place] [address] [phone] Nadir Bourgeois MD [address] [place] [address] [phone] 05/20/2025 7:15 AM EST Office Visit [facility] Cardiopulmonary Rehabilitation [address] [place] [address] [phone] Nadir Bourgeois MD [address] [place] [address] [phone] 05/23/2025 7:15 AM EST Office Visit [facility] Cardiopulmonary Rehabilitation [address] [place] [address] [phone] Nadir Bourgeois MD [address] [place] [address] 36930 05/25/2025 7:15 AM EST Office Visit [facility] Cardiopulmonary Rehabilitation [address] [place] [address] [phone] Nadir Bourgeois MD [address] [place] [address] [phone] 05/27/2025 7:15 AM EST Office Visit [facility] Cardiopulmonary Rehabilitation [address] [place] [address] [phone] Nadir Bourgeois MD [address] [place] [address] 16710 05/30/2025 7:15 AM EST Office Visit [facility] Cardiopulmonary Rehabilitation [address] [place] [address] [phone] Nadir Bourgeois MD [address] [place] [address] 23842 06/01/2025 7:15 AM EST Office Visit [facility] Cardiopulmonary Rehabilitation [address] [place] [address] Nadir Bourgeois MD [address] [place] [address] [phone] 06/03/2025 7:15 AM EST Office Visit [facility] Cardiopulmonary Rehabilitation [address] [place] [address] Nadir Bourgeois MD [address] [place] [address] [phone] 08/23/2025 8:20 AM EST Office Visit [address] [place] [address], [address] [place] [phone] Jaden Taveras MD [address] [place] [address] 28849 09/02/2025 8:40 AM EDT Office Visit [address] [place] [address], [address] [place] [address] Nadir Bourgeois MD [address] [place] [address] 50123 10/31/2025 10:15 AM EDT Appointment [facility] [address] [place] [address] Nadir Bourgeois MD [address] [place] [address] [phone] 11/11/2025 11:20 AM EDT Office Visit [address] [place] [address], [address] [place] [phone] Nadir Bourgeois MD [address] [place] [phone] [email or web address] documented as of this encounter Visit Diagnoses Not on filedocumented in this encounter Additional Health Concerns Assessment Noted Time PHQ-9 Depression Total Score: 1 03/11/20 1:55 PM EDT documented as of this encounter Care Teams Program Project Manager Relationship Specialty Start Date End Date Taco Molina DO [address] [place] [address] [email or web address] PCP - General Internal Medicine 01/26/25 documented as of this encounter Additional Source Comments The information contained in this document represents components of the legal health record. It is not the complete legal health record.[facility]
--- OUTSIDE RECORDS SUMMARY | 2025-03-16 18:12 | XMS_ITS | Encounter Summary ---
Author Organization [facility] Address [address] [facility] [address] [place] [address] Phone Care Team Providers Care Cylinder Valve Repairer Name Role Phone Taco Molina Primary Care Provider [phone] Taco Molina DO Primary Care Provider [phone] Encounter Details Date Type Department Care Team (Latest Contact Info) Description 12/20/2022 Transcribe Orders Virtual Department [address] [place] [address] Lizet Schaefer PA 6 [facility] [place] [address] Synovial cyst of popliteal space (Friedman), right knee (Primary Dx) Social History Tobacco Use Types [...] Info) Description 12/27/2024 Procedure Pass Echo Lab [address] [place] [address] 03/18/2025 7:15 AM EDT Office Visit [facility] Cardiopulmonary Rehabilitation [address] [place] [address] 49[address] Nadir Bourgeois MD [address] [place] [address] 28302 03/21/2025 7:15 AM EDT Office Visit [facility] Cardiopulmonary Rehabilitation [address] [place] [address] 9[address] Nadir Bourgeois MD [address] [place] [address] 38846 03/23/2025 7:15 AM EDT Office Visit [facility] Cardiopulmonary Rehabilitation [address] [place] [address] 81670 Nadir Bourgeois MD [address] [place] [address] 20211 03/25/2025 7:15 AM EDT Office Visit [facility] Cardiopulmonary Rehabilitation [address] [place] [address] 15527 Nadir Bourgeois MD [address] [place] [address] 83605 03/28/2025 7:15 AM EDT Office Visit [facility] Cardiopulmonary Rehabilitation [address] [place] [address] 91498 Nadir Bourgeois MD [address] [place] [address] 64677 03/30/2025 7:15 AM EDT Office Visit [facility] Cardiopulmonary Rehabilitation [address] [place] [address] 34046 Nadir Bourgeois MD [address] [place] [address] 68828 04/01/2025 7:15 AM EDT Office Visit [facility] Cardiopulmonary Rehabilitation [address] [place] [address] Nadir Bourgeois MD [address] [place] [address] 06103 04/04/2025 7:15 AM EDT Office Visit [facility] Cardiopulmonary Rehabilitation [address] [place] [address] 79228 Nadir Bourgeois MD [address] [place] [address] 86909 04/06/2025 7:15 AM EDT Office Visit [facility] Cardiopulmonary Rehabilitation [address] [place] [address] 968[address] Nadir Bourgeois MD [address] [place] [address] 61372 04/08/2025 7:15 AM EDT Office Visit [facility] Cardiopulmonary Rehabilitation [address] [place] [address] 45685 Nadir Bourgeois MD [address] [place] [address] 67035 04/11/2025 7:15 AM EDT Office Visit [facility] Cardiopulmonary Rehabilitation [address] [place] [address] Nadir Bourgeois MD [address] [place] [address] 69686 04/13/2025 7:15 AM EDT Office Visit [facility] Cardiopulmonary Rehabilitation [address] [place] [address] 42260 Nadir Bourgeois MD [address] [place] [address] 07560 04/15/2025 7:15 AM EDT Office Visit [facility] Cardiopulmonary Rehabilitation [address] [place] [address] Nadir Bourgeois MD [address] [place] [address] 01106 04/18/2025 7:15 AM EDT Office Visit [facility] Cardiopulmonary Rehabilitation [address] [place] [address]76 Nadir Bourgeois MD [address] [place] [address] 89108 04/20/2025 7:15 AM EDT Office Visit [facility] Cardiopulmonary Rehabilitation [address] [place] [address] Nadir Bourgeois MD [address] [place] [address] 42728 04/20/2025 2:00 PM EDT Office Visit [facility] [address] [place] [address] 3rd Floor, [address] [place] [address] Macrina Pearson DNP [address] [facility], [address] [place] [address] 04/22/2025 7:15 AM EDT Office Visit [facility] Cardiopulmonary Rehabilitation [address] [place] [address] 34634 Nadir Bourgeois MD [address] [place] [address] 77935 04/25/2025 7:15 AM EST Office Visit [facility] Cardiopulmonary Rehabilitation [address] [place] [address] 82957 Nadir Bourgeois MD [address] [place] [address] 60811 04/27/2025 7:15 AM EST Office Visit [facility] Cardiopulmonary Rehabilitation [address] [place] [address] 19248 Nadir Bourgeois MD [address] [place] [address] 47567 04/29/2025 7:15 AM EST Office Visit [facility] Cardiopulmonary Rehabilitation [address] [place] [address] 59368 Nadir Bourgeois MD [address] [place] [address] 64655 05/02/2025 7:15 AM EST Office Visit [facility] Cardiopulmonary Rehabilitation [address] [place] [address] 90942 Nadir Bourgeois MD [address] [place] [address] 29609 05/04/2025 7:15 AM EST Office Visit [facility] Cardiopulmonary Rehabilitation [address] [place] [address] 29742 Nadir Bourgeois MD [address] [place] [address] 82775 05/06/2025 7:15 AM EST Office Visit [facility] Cardiopulmonary Rehabilitation [address] [place] [address] 34930 Nadir Bourgeois MD [address] [place] [address] 37052 05/09/2025 7:15 AM EST Office Visit [facility] Cardiopulmonary Rehabilitation [address] [place] [address] 50086 Nadir Bourgeois MD [address] [place] [address] 35446 05/11/2025 7:15 AM EST Office Visit [facility] Cardiopulmonary Rehabilitation [address] [place] [address] 29408 Nadir Bourgeois MD [address] [place] [address] 91847 05/13/2025 7:15 AM EST Office Visit [facility] Cardiopulmonary Rehabilitation [address] [place] [address] 58239 Nadir Bourgeois MD [address] [place] [address] 27131 05/16/2025 7:15 AM EST Office Visit [facility] Cardiopulmonary Rehabilitation [address] [place] [address] 92745 Nadir Bourgeois MD [address] [place] [address] 78953 05/18/2025 7:15 AM EST Office Visit [facility] Cardiopulmonary Rehabilitation [address] [place] [address] 55151 Nadir Bourgeois MD [address] [place] [address] 64432 05/20/2025 7:15 AM EST Office Visit [facility] Cardiopulmonary Rehabilitation [address] [place] [address] 15457 Nadir Bourgeois MD [address] [place] [address] 89970 05/23/2025 7:15 AM EST Office Visit [facility] Cardiopulmonary Rehabilitation [address] [place] [address] Nadir Bourgeois MD [address] [place] [address] 51453 05/25/2025 7:15 AM EST Office Visit [facility] Cardiopulmonary Rehabilitation [address] [place] [address] 69229 Nadir Bourgeois MD [address] [place] [address] 81986 05/27/2025 7:15 AM EST Office Visit [facility] Cardiopulmonary Rehabilitation [address] [place] [address] 26634 Nadir Bourgeois MD [address] [place] [address] 27497 05/30/2025 7:15 AM EST Office Visit [facility] Cardiopulmonary Rehabilitation [address] [place] [address] 43052 Nadir Bourgeois MD [address] [place] [address] 43764 06/01/2025 7:15 AM EST Office Visit [facility] Cardiopulmonary Rehabilitation [address] [place] [address] 08071 Nadir Bourgeois MD [address] [place] [address] 58430 06/03/2025 7:15 AM EST Office Visit [facility] Cardiopulmonary Rehabilitation [address] [place] [address] Nadir Bourgeois MD [address] [place] [address] 40666 08/23/2025 8:20 AM EST Office Visit [address] [facility], [address] [place] [address] Jaden Taveras MD [address] [place] [address] 19108 09/02/2025 8:40 AM EDT Office Visit [address] [place] [address], [address] [place] [address] 65846 Nadir Bourgeois MD [address] [place] [address] 32900 10/31/2025 10:15 AM EDT Appointment Echo [facility] [place] [address] [place] [address] Nadir Bourgeois MD [address] [place] [address] 53959 11/11/2025 11:20 AM EDT Office Visit [address] [place] [address], [address] [place] [address] 52528 Nadir Bourgeois MD [address] [place] [address] 90983 documented as of this encounter Results * US LOWER EXTREMITY NON-VASCULAR LIMITED (RIGHT) (12/30/2022 3:12 PM EDT) Anatomical Region Laterality Modality Hip Right, Thigh Right, Knee Right, Leg Right, Ankle Right, Foot Right Ultrasound 12/31/2022 2:05 PM EDT Impressions 12/31/2022 2:12 PM EDT Persisting popliteal cyst, slightly smaller than on 01/09/2022. Narrative 12/31/2022 2:12 PM EDT TECHNIQUE: US LOWER EXTREMITY NON-VASCULAR LIMITED (RIGHT) HISTORY: Follow-up popliteal cyst on right. COMPARISON: Ultrasounds 08/30/2020 and 01/09/2022. FINDINGS: Dedicated imaging of the right popliteal fossa performed. Cyst with small amounts of mobile internal echoes and a few septations in the popliteal fossa. The cyst measures 10.7 cm x 5.2 cm x 2.8 cm compared with 18.1 cm x 4.3 cm x 4.0 cm on 01/09/2022 No other significant changes. Procedure Note Benigno Tinoco MD - 12/31/2022 TECHNIQUE: US LOWER EXTREMITY NON-VASCULAR LIMITED (RIGHT) HISTORY: Follow-up popliteal cyst on right. COMPARISON: Ultrasounds 08/30/2020 and 01/09/2022. FINDINGS: Dedicated imaging of the right popliteal fossa performed. Cyst with small amounts of mobile internal echoes and a few septations inthe popliteal fossa. The cyst measures 10.7 cm x 5.2 cm x 2.8 cm comparedwith 18.1 cm x 4.3 cm x 4.0 cm on 01/09/2022 No other significant changes. IMPRESSION: Persisting popliteal cyst, slightly smaller than on 01/09/2022. us Lizet THOMPSON IMG US EXTREMITY Final Resu lt documented in this encounter Visit Diagnoses Diagnosis Synovial cyst of popliteal space (Friedman), right knee- Primary Synovial cyst of popliteal space (Friedman), right knee documented in this encounter Care Teams Cylinder Valve Repairer Relationship Specialty Start Date End Date Taco Molina DO PCP - General Internal Medicine 11/11/17 01/25/25 Taco Molina DO [address] [place] [address] [email or web address] PCP - General Internal Medicine 01/26/25 documented as of this encounter Additional Source Comments The information contained in this document represents components of the legal health record. It is not the complete legal health record.[facility]
--- OUTSIDE RECORDS SUMMARY | 2025-03-16 18:12 | XMS_ITS | Encounter Summary ---
Author Organization [facility] Address [address] [place] [address] [place] [phone] Phone Care Team Providers Care Race And Sports Book Writer Name Role Phone Taco Molina Primary Care Provider [phone] DilipTaco norman DO Primary Care Provider [phone] Encounter Details Date Type Department Care Team (Late st Contact Info) Description 11/11/2023 Procedure Pass [facility] Echo Lab [address] [place] [address] Social History Tobacco Use Types Packs/Day Years [...] Info) Description 12/27/2024 Procedure Pass Echo Lab [address] [place] [address] 03/18/2025 7:15 AM EDT Office Visit [facility] Cardiopulmonary Rehabilitation [address] [place] [address] 20214 Nadir Bourgeois MD [address] [place] [address] 94862 03/21/2025 7:15 AM EDT Office Visit [facility] Cardiopulmonary [address] [address] Nadir Bourgeois MD [address] [place] [address] 85133 03/23/2025 7:15 AM EDT Office Visit [facility] Cardiopulmonary Rehabilitation [address] [place] [address] 92002 Nadir Bourgeois MD [address] [place] [address] 32960 03/25/2025 7:15 AM EDT Office Visit [facility] Cardiopulmonary Rehabilitation [address] [place] [address] 85834 Nadir Bourgeois MD [address] [place] [address] 26237 03/28/2025 7:15 AM EDT Office Visit [facility] Cardiopulmonary Rehabilitation [address] [place] [address] Nadir Bourgeois MD [address] [place] [address] 37194 03/30/2025 7:15 AM EDT Office Visit [facility] Cardiopulmonary Rehabilitation [address] [place] [address] Nadir Bourgeois MD [address] [place] [address] 33985 04/01/2025 7:15 AM EDT Office Visit [facility] Cardiopulmonary Rehabilitation [address] [place] [address] Nadir Bourgeois MD [address] [place] [address] 40960 04/04/2025 7:15 AM EDT Office Visit [facility] Cardiopulmonary Rehabilitation [address] [place] [address] Nadir Bourgeois MD [address] [place] [address] 16854 04/06/2025 7:15 AM EDT Office Visit [facility] Cardiopulmonary Rehabilitation [address] [place] [address] Nadir Bourgeois MD [address] [place] [address] 44456 04/08/2025 7:15 AM EDT Office Visit [facility] Cardiopulmonary Rehabilitation [address] [place] [address] Nadir Bourgeois MD [address] [place] [address] 19615 04/11/2025 7:15 AM EDT Office Visit [facility] Cardiopulmonary Rehabilitation [address] [place] [address] Nadir Bourgeois MD [address] [place] [address] 37674 04/13/2025 7:15 AM EDT Office Visit [facility] Cardiopulmonary Rehabilitation [address] [place] [address] Nadir Bourgeois MD [address] [place] [address] 62682 04/15/2025 7:15 AM EDT Office Visit [facility] Cardiopulmonary Rehabilitation [address] [place] [address] Nadir Bourgeois MD [address] [place] [address] 14973 04/18/2025 7:15 AM EDT Office Visit [facility] Cardiopulmonary Rehabilitation [address] [place] [address] 12215 Nadir Bourgeois MD [address] [place] [address] 65955 04/20/2025 7:15 AM EDT Office Visit [facility] Cardiopulmonary Rehabilitation [address] [place] [address] 32050 Nadir Bourgeois MD [address] [place] [address] 24178 04/20/2025 2:00 PM EDT Office Visit [facility] [address] [place] [address] 3rd Floor, [address] [place] [address] Macrina Pearson DNP [address] [place] [address], [address] [address] 04/22/2025 7:15 AM EDT Office Visit [facility] Cardiopulmonary Rehabilitation [address] [place] [address] Nadir Bourgeois MD [address] [place] [address] 24682 04/25/2025 7:15 AM EST Office Visit [facility] Cardiopulmonary Rehabilitation [address] [place] [address] 93688 Nadir Bourgeois MD [address] [place] [address] 98715 04/27/2025 7:15 AM EST Office Visit [facility] Cardiopulmonary Rehabilitation [address] [place] [address] 69380 Nadir Bourgeois MD [address] [place] [address] 42806 04/29/2025 7:15 AM EST Office Visit [facility] Cardiopulmonary Rehabilitation [address] [place] [address] 27600 Nadir Bourgeois MD [address] [place] [address] 65041 05/02/2025 7:15 AM EST Office Visit [facility] Cardiopulmonary Rehabilitation [address] [place] [address] 58997 Nadir Bourgeois MD [address] [place] [address] 29642 05/04/2025 7:15 AM EST Office Visit [facility] Cardiopulmonary Rehabilitation [address] [place] [address] 92150 Nadir Bourgeois MD [address] [place] [address] 85891 05/06/2025 7:15 AM EST Office Visit [facility] Cardiopulmonary Rehabilitation [address] [place] [address] 68738 Nadir Bourgeois MD [address] [place] [address] 44551 05/09/2025 7:15 AM EST Office Visit [facility] Cardiopulmonary Rehabilitation [address] [place] [address] Nadir Bourgeois MD [address] [place] [address] 17386 05/11/2025 7:15 AM EST Office Visit [facility] Cardiopulmonary Rehabilitation [address] [place] [address] Nadir Bourgeois MD [address] [place] [address] 88069 05/13/2025 7:15 AM EST Office Visit [facility] Cardiopulmonary Rehabilitation [address] [place] [address] Nadir Bourgeois MD [address] [place] [address] 81514 05/16/2025 7:15 AM EST Office Visit [facility] Cardiopulmonary Rehabilitation [address] [place] [address] 89626 Nadir Bourgeois MD [address] [place] [address] 35517 05/18/2025 7:15 AM EST Office Visit [facility] Cardiopulmonary Rehabilitation [address] [place] [address] Nadir Bourgeois MD [address] [place] [address] 84870 05/20/2025 7:15 AM EST Office Visit [facility] Cardiopulmonary Rehabilitation [address] [place] [address] 77839 Nadir Bourgeois MD [address] [place] [address] 11873 05/23/2025 7:15 AM EST Office Visit [facility] Cardiopulmonary Rehabilitation [address] [place] [address] 39960 Nadir Bourgeois MD [address] [place] [address] 09801 05/25/2025 7:15 AM EST Office Visit [facility] Cardiopulmonary Rehabilitation [address] [place] [address] 44777 Nadir Bourgeois MD [address] [place] [address] 36346 05/27/2025 7:15 AM EST Office Visit [facility] Cardiopulmonary Rehabilitation [address] [place] [address] 81652 Nadir Bourgeois MD [address] [place] [address] 67434 05/30/2025 7:15 AM EST Office Visit [facility] Cardiopulmonary Rehabilitation [address] [place] [address] 95376 Nadir Bourgeois MD [address] [place] [address] 20324 06/01/2025 7:15 AM EST Office Visit [facility] Cardiopulmonary Rehabilitation [address] [place] [address] 61241 Nadir Bourgeois MD [address] [place] [address] 16949 06/03/2025 7:15 AM EST Office Visit [facility] Cardiopulmonary Rehabilitation [address] [place] [address] 41061 Nadir Bourgeois MD [address] [place] [address] [phone] 08/23/2025 8:20 AM EST Office Visit [facility] [address] [place] [address], [address] [place] [address] Jaden Taveras MD [address] [place] [address] 34244 09/02/2025 8:40 AM EDT Office Visit [address] [place] [address], [address] [place] [address] 269[address] Nadir Bourgeois MD [address] [place] [address] 59612 10/31/2025 10:15 AM EDT Appointment Echo Lab [address] [address] Nadir Bourgeois MD [address] [place] [address] 82996 11/11/2025 11:20 AM EDT Office Visit [address], [address] [place] [address] Nadir Bourgeois MD [address] [place] [address] [phone] documented as of this encounter Visit Diagnoses Not on filedocumented in this encounter Care Teams Race And Sports Book Writer Relationship Specialty Start Date End Date Taco Molina DO PCP - General Internal Medicine 11/11/17 01/25/25 Taco Molina DO [address] [place] [address] [place] [address] [email or web address] PCP - General Internal Medicine 01/26/25 documented as of this encounter Additional Source Comments The information contained in this document represents components of the legal health record. It is not the complete legal health record.[facility]
--- OUTSIDE RECORDS SUMMARY | 2025-03-16 18:12 | XMS_ITS | Encounter Summary ---
Author Organization [facility] Address [address] [place] [id number] Phone Care Team Providers Care Tape Machine Tailer Name Role Phone Taco Molina DO Primary Care Provider [phone] Taco Molina DO Primary Care Provider [phone] Reason for Referral * MRI/CAT Scan - Closed Specialty Diagnoses / Procedures Referred By Janis novak Referred To Contact Radiology Diagnoses Right-sided low back pain with right-sided sciatica, unspecified chronicity Procedures MRI Lumbar Spine Taco Molina DO Phone: tel: fax: [email or web address] Referral ID Status Reason Start Date Expiration Date Visits Re quested Visits Authorized [id number] Closed 03/11/2023 1 1 Encounter Details Date Type Department Care Team (Late st Contact Info) Description 03/11/2023 Transcribe Orders Virtual Department [address] [place] [address] Taco Molina DO [address] [place] [address] [email or web address] Right-sided low back pain with right-sided sciatica, unspecified chronicity (Primary Dx) Social History Tobacco Use Types [...] Info) Description 12/27/2024 Procedure Pass [facility] [place] [address] [place] [address] 03/18/2025 7:15 AM EDT Office Visit [facility] [address] [place] [address] Nadir Bourgeois MD [address] [place] [phone] 03/21/2025 7:15 AM EDT Office Visit [facility] [address] [place] [address] Nadir Bourgeois MD [address] [place] [address] 03/23/2025 7:15 AM EDT Office Visit [facility] [address] [place] [address] Nadir Bourgeois MD [address] [place] [address] 03/25/2025 7:15 AM EDT Office Visit [facility] [address] [place] [address] Nadir Bourgeois MD [address] [place] [phone] 03/28/2025 7:15 AM EDT Office Visit [facility] [address] [place] [address] Nadir Bourgeois MD [address] [place] [address] [phone] 03/30/2025 7:15 AM EDT Office Visit [facility] [address] [place] [address] Nadir Bourgeois MD [address] [place] [address] 61881 04/01/2025 7:15 AM EDT Office Visit [facility] [address] [place] [address]671 Nadir Bourgeois MD [address] [place] [address] [phone] 04/04/2025 7:15 AM EDT Office Visit [facility] [address] [place] [address] Nadir Bourgeois MD [address] [place] [address] [phone] 04/06/2025 7:15 AM EDT Office Visit [facility] [address] [place] [address] Naidr Bourgeois MD [address] [place] [address] [phone] 04/08/2025 7:15 AM EDT Office Visit [facility] [address] [place] [address] Nadir Bourgeois MD [address] [place] [address] 64780 04/11/2025 7:15 AM EDT Office Visit [facility] [address] [place] [address] Nadir Bourgeois MD [address] [place] [address] [phone] 04/13/2025 7:15 AM EDT Office Visit [facility] [address] [place] [address] Nadir Bourgeois MD [address] [place] [address] 56559 04/15/2025 7:15 AM EDT Office Visit [facility] [address] [place] [address] Nadir Bourgeois MD [address] [place] [address] [phone] 04/18/2025 7:15 AM EDT Office Visit [facility] [address] [place] [address] Nadir Bourgeois MD [address] [place] [address] [phone] 04/20/2025 7:15 AM EDT Office Visit [facility] [address] [place] [address] Nadir Bourgeois MD [address] [place] [address] [phone] 04/20/2025 2:00 PM EDT Office Visit [facility] [address] [place] [address] 3rd Floor, [address] [place] [address] Macrina Pearson DNP [address] [place] [address], [address] [address] 04/22/2025 7:15 AM EDT Office Visit [facility] [address] [place] [address] Nadir Bourgeois MD [address] [place] [address] [phone] 04/25/2025 7:15 AM EST Office Visit [facility] [address] [place] [address] Nadir Bourgeois MD [address] [place] [address] 72053 04/27/2025 7:15 AM EST Office Visit [facility] [address] [place] [address] Nadir Bourgeois MD [address] [place] [address] [phone] 04/29/2025 7:15 AM EST Office Visit [facility] [address] [place] [address] Nadir Bourgeois MD [address] [place] [address] 11801 05/02/2025 7:15 AM EST Office Visit [facility] [address] [place] [address] Nadir Bourgeois MD [address] [place] [address] [phone] 05/04/2025 7:15 AM EST Office Visit [facility] [address] [place] [address] Nadir Bourgeois MD [address] [place] [address] 74774 05/06/2025 7:15 AM EST Office Visit [facility] [address] [place] [address] Nadir Bourgeois MD [address] [place] [address] [phone] 05/09/2025 7:15 AM EST Office Visit [facility] [address] [place] [address] 477[address] Nadir Bourgeois MD [address] [place] [address] 19031 05/11/2025 7:15 AM EST Office Visit [facility] [address] [place] [address] Nadir Bourgeois MD [address] [place] [address] 24630 05/13/2025 7:15 AM EST Office Visit [facility] [address] [place] [address] 489[address] Nadir Bourgeois MD [address] [place] [address] [phone] 05/16/2025 7:15 AM EST Office Visit [facility] [address] [place] [address] 378[address] Nadir Bourgeois MD [address] [place] [address] [phone] 05/18/2025 7:15 AM EST Office Visit [facility] [address] [place] [address] 67[address] Nadir Bourgeois MD [address] [place] [address] 01756 05/20/2025 7:15 AM EST Office Visit [facility] [address] [place] [address] Nadir Bourgeois MD [address] [place] [address] 64803 05/23/2025 7:15 AM EST Office Visit [facility] [address] [place] [address] Nadir Bourgeois MD [address] [place] [address] [phone] 05/25/2025 7:15 AM EST Office Visit [facility] [address] [place] [address] 327[address] Nadir Bourgeois MD [address] [place] [address] [phone] 05/27/2025 7:15 AM EST Office Visit [facility] [address] [place] [address] 27[address] Nadir Bourgeois MD [address] [place] [address] 79423 05/30/2025 7:15 AM EST Office Visit [facility] [address] [place] [address] Nadir Bourgeois MD [address] [place] [address] 62055 06/01/2025 7:15 AM EST Office Visit [facility] [address] [place] [address] Nadir Bourgeois MD [address] [place] [address] 38964 06/03/2025 7:15 AM EST Office Visit [facility] [address] [place] [address] Nadir Bourgeois MD [address] [place] [address] [phone] 08/23/2025 8:20 AM EST Office Visit [facility] [address] [place] [address] [place] [address], [address] [place] [address] Jaden Taveras MD [address] [place] [address] [phone] 09/02/2025 8:40 AM EDT Office Visit [facility] [address] [place] [address], [address] [place] [address] Nadir Bourgeois MD [address] [place] [address] 72706 10/31/2025 10:15 AM EDT Appointment [facility] [address] [place] [address] Nadir Bourgeois MD [address] [place] [address] [phone] 11/11/2025 11:20 AM EDT Office Visit [facility] [address], [address] [place] [address] Nadir Bourgeois MD [address] [place] [address] [email or web address] documented as of this encounter Results * MRI LUMBAR SPINE (BONE) WITHOUT CONTRAST (04/05/2023 4:33 PM EDT) Anatomical Region Laterality Modality L-spine Magnetic Resonan ce 04/08/2023 12:0 9 AM EDT Impressions 04/08/2023 12:22 AM EDT Congenital short pedicles. Multilevel disc bulges, facet arthropathy, thickening of ligamentum flavum, and epidural lipomatosis causing multilevel spinal canal stenoses, severe at L2-3, L3-4, and L4-5, moderate to severe L5-S1, mild to moderate at T10-T11, and mild at T12-L1. Multilevel neuroforaminal stenoses, severe at L4-5, severe left and moderate right L5-S1, mild to moderate at T10-11 and L2-3, and mild at L3-4. Endplate marrow edema at L1-2, L2-3, and L4-5, may reflect axial pain generators. Narrative 04/08/2023 12:22 AM EDT MRI LUMBAR SPINE (BONE) WITHOUT CONTRAST TECHNIQUE: MRI LUMBAR SPINE (BONE) WITHOUT CONTRAST COMPARISON: XR LUMBOSACRAL SPINE 2-3 VIEWS FINDINGS: ALIGNMENT: 5 mm L3-4 retrolisthesis. 6 mm L5-S1 anterolisthesis. MARROW: Heterogeneous marrow signal without marrow replacing lesion. No compression fracture. DISCS: Disc desiccation at all levels. Endplate marrow edema L1-2, L2-3, and L4- 5. CONUS: Normal appearance and terminates at L1-L2. PARASPINAL SOFT TISSUES: Moderate posterior paraspinal muscle atrophy. FINDINGS BY LEVEL: Congenital short pedicles. T10-T11: Diffuse disc bulge, facet arthropathy, thickening of ligamentum flavum, and epidural lipomatosis. Mild to moderate spinal canal stenosis. Mild to moderate neuroforaminal stenosis. T11-T12: Facet arthropathy. No spinal canal or neuroforaminal stenosis. T12-L1: Diffuse disc bulge, facet arthropathy, and thickening of ligamentum flavum. Mild spinal canal stenosis. No neuroforaminal stenosis. L1-2: Diffuse disc bulge, facet arthropathy, and thickening of ligamentum flavum. Mild spinal canal stenosis. No neuroforaminal stenosis. L2-3: Diffuse disc bulge, facet arthropathy, thickening of ligamentum flavum, and epidural lipomatosis. Severe spinal canal stenosis. Mild to moderate neuroforaminal stenosis. L3-4: Diffuse disc bulge, posterior disc osteophyte complex, facet arthropathy, thickening of ligamentum flavum, and epidural lipomatosis. Severe spinal canal stenosis. Mild neuroforaminal stenosis. L4-5: Diffuse disc bulge, posterior disc osteophyte complex, superimposed central disc protrusion, facet arthropathy, thickening of ligamentum flavum, and epidural lipomatosis. Severe spinal canal stenosis. Severe neuroforaminal stenosis. L5-S1: Diffuse disc bulge, posterior annular fissure, facet arthropathy, thickening of ligamentum flavum flavum, and epidural lipomatosis. Moderate to severe spinal canal stenosis. Severe left and moderate right neuroforaminal stenosis. Procedure Note Red Montejo MD - 04/08/2023 MRI LUMBAR SPINE (BONE) WITHOUT CONTRAST TECHNIQUE: MRI LUMBAR SPINE (BONE) WITHOUT CONTRAST COMPARISON: XR LUMBOSACRAL SPINE 2-3 VIEWS FINDINGS: ALIGNMENT: 5 mm L3-4 retrolisthesis. 6 mm L5-S1 anterolisthesis. MARROW: Heterogeneous marrow signal without marrow replacing lesion. Nocompression fracture. DISCS: Disc desiccation at all levels. Endplate marrow edema L1-2, L2-3,and L4- 5. CONUS: Normal appearance and terminates at L1-L2. PARASPINAL SOFT TISSUES: Moderate posterior paraspinal muscle atrophy. FINDINGS BY LEVEL: Congenital short pedicles. T10-T11: Diffuse disc bulge, facet arthropathy, thickening of ligamentumflavum, and epidural lipomatosis. Mild to moderate spinal canal stenosis.Mild to moderate neuroforaminal stenosis. T11-T12: Facet arthropathy. No spinal canal or neuroforaminal stenosis. T12-L1: Diffuse disc bulge, facet arthropathy, and thickening ofligamentum flavum. Mild spinal canal stenosis. No neuroforaminalstenosis. L1-2: Diffuse disc bulge, facet arthropathy, and thickening of ligamentumflavum. Mild spinal canal stenosis. No neuroforaminal stenosis. L2-3: Diffuse disc bulge, facet arthropathy, thickening of ligamentumflavum, and epidural lipomatosis. Severe spinal canal stenosis. Mild tomoderate neuroforaminal stenosis. L3-4: Diffuse disc bulge, posterior disc osteophyte complex, facetarthropathy, thickening of ligamentum flavum, and epidural lipomatosis.Severe spinal canal stenosis. Mild neuroforaminal stenosis. L4-5: Diffuse disc bulge, posterior disc osteophyte complex, superimposedcentral disc protrusion, facet arthropathy, thickening of ligamentumflavum, and epidural lipomatosis. Severe spinal canal stenosis. Severeneuroforaminal stenosis. L5-S1: Diffuse disc bulge, posterior annular fissure, facet arthropathy,thickening of ligamentum flavum flavum, and epidural lipomatosis. Moderateto severe spinal canal stenosis. Severe left and moderate rightneuroforaminal stenosis. IMPRESSION: Congenital short pedicles. Multilevel disc bulges, facet arthropathy, thickening of ligamentumflavum, and epidural lipomatosis causing multilevel spinal canal stenoses,severe at L2-3, L3-4, and L4-5, moderate to severe L5-S1, mild to moderateat T10-T11, and mild at T12- L1. Multilevel neuroforaminal stenoses, severe at L4-5, severe left andmoderate right L5-S1, mild to moderate at T10-11 and L2-3, and mild atL3-4. Endplate marrow edema at L1-2, L2-3, and L4-5, may reflect axial paingenerators. us Taco A Bigda DO IMG MR XSPECIALTY Final Result documented in this encounter Visit Diagnoses Diagnosis Right-sided low back pain with right-sided sciatica, unspecified chronicity- Primary Right-sided low back pain with right-sided sciatica, unspecified chronicity documented in this encounter Care Teams Tape Machine Tailer Relationship Specialty Start Date End Date Taco Molina DO [email or web address] PCP - General Internal Medicine 11/11/17 01/25/25 Taco Molina DO [address] [place] [address] [email or web address] PCP - General Internal Medicine 01/26/25 documented as of this encounter Additional Source Comments The information contained in this document represents components of the legal health record. It is not the complete legal health record.[facility]
--- OUTSIDE RECORDS SUMMARY | 2025-03-16 18:12 | XMS_ITS | Encounter Summary ---
Author Organization [facility] Address [address] [place] [phone] Phone Care Team Providers Care Safety Risk Lead Name Role Phone Taco Molina DO Primary Care Provider [phone] Taco Molina DO Primary Care Provider [phone] Reason for Referral * Outpatient Procedure - Closed Specialty Diagnoses / Procedures Referred By Janis novak Referred To Contact Diagnoses Nonrheumatic aortic (valve) stenosis Procedures Adult Echo TTE Taco Molina DO Phone: tel: fax: [email or web address] Referral ID Status Reason Start Date Expiration Date Visits Re quested Visits Authorized [id number] Closed 08/14/2020 08/14/2021 1 1 Encounter Details Date Type Department Care Team (Late st Contact Info) Description 08/14/2020 Transcribe Orders Virtual Department [address] [place] [address] Taco Molina DO [address] [facility] [address] [place] [address] [email or web address] Nonrheumatic aortic (valve) stenosis (Primary Dx); Synovial cyst of popliteal space (Friedman), right knee Social History Tobacco Use Types Packs/Day Years [...] Info) Description 12/27/2024 Procedure Pass Echo Lab [place] [place] [address] 03/18/2025 7:15 AM EDT Office Visit [facility] Cardiopulmonary Rehabilitation [address] [place] [address] Nadir Bourgeois MD [address] [place] [address] [phone] 03/21/2025 7:15 AM EDT Office Visit [facility] Cardiopulmonary Rehabilitation [address] [place] [address] 93407 Nadir Bourgeois MD [address] [place] [address] [phone] 03/23/2025 7:15 AM EDT Office Visit [facility] Cardiopulmonary Rehabilitation [address] [place] [address] 83052 Nadir Bourgeois MD [address] [place] [address] [phone] 03/25/2025 7:15 AM EDT Office Visit [facility] Cardiopulmonary Rehabilitation [address] [place] [address] 91510 Nadir Bourgeois MD [address] [place] [address] [phone] 03/28/2025 7:15 AM EDT Office Visit [facility] Cardiopulmonary Rehabilitation [address] [place] [address] 38060 Nadir Bourgeois MD [address] [place] [address] [phone] 03/30/2025 7:15 AM EDT Office Visit [facility] Cardiopulmonary Rehabilitation [address] [place] [address] Nadir Bourgeois MD [address] [place] [address] [phone] 04/01/2025 7:15 AM EDT Office Visit [facility] Cardiopulmonary Rehabilitation [address] [place] [address] Nadir Bourgeois MD [address] [place] [address] [phone] 04/04/2025 7:15 AM EDT Office Visit [facility] Cardiopulmonary Rehabilitation [address] [place] [address] Nadir Bourgeois MD [address] [place] [address] [phone] 04/06/2025 7:15 AM EDT Office Visit [facility] Cardiopulmonary Rehabilitation [address] [place] [address] 28224 Nadir Bourgeois MD [address] [place] [address] [phone] 04/08/2025 7:15 AM EDT Office Visit [facility] Cardiopulmonary Rehabilitation [address] [place] [address] Nadir Bourgeois MD [address] [place] [address] [phone] 04/11/2025 7:15 AM EDT Office Visit [facility] Cardiopulmonary Rehabilitation [address] [place] [address] 35516 Nadir Bourgeois MD [address] [place] [address] [phone] 04/13/2025 7:15 AM EDT Office Visit [facility] Cardiopulmonary Rehabilitation [address] [place] [address] Nadir Bourgeois MD [address] [place] [address] [phone] 04/15/2025 7:15 AM EDT Office Visit [facility] Cardiopulmonary Rehabilitation [address] [place] [address] Nadir Bourgeois MD [address] [place] [address] [phone] 04/18/2025 7:15 AM EDT Office Visit [facility] Cardiopulmonary Rehabilitation [address] [place] [address] Nadir Bourgeois MD [address] [place] [address] [phone] 04/20/2025 7:15 AM EDT Office Visit [facility] Cardiopulmonary Rehabilitation [address] [place] [address] 38582 Nadir Bourgeois MD [address] [place] [address] [phone] 04/20/2025 2:00 PM EDT Office Visit [facility] [address] [place] [address] [address]rd Floor, [address] [place] [address] Macrina Pearson DNP [address] [place] [phone] 04/22/2025 7:15 AM EDT Office Visit [facility] Cardiopulmonary Rehabilitation [address] [place] [address] 11402 Nadir Bourgeois MD [address] [place] [address] 45849 04/25/2025 7:15 AM EST Office Visit [facility] Cardiopulmonary Rehabilitation [address] [place] [address] 88910 Nadir Bourgeois MD [address] [place] [address] [phone] 04/27/2025 7:15 AM EST Office Visit [facility] Cardiopulmonary Rehabilitation [address] [place] [address] 41374 Nadir Bourgeois MD [address] [place] [address] [phone] 04/29/2025 7:15 AM EST Office Visit [facility] Cardiopulmonary Rehabilitation [address] [place] [address] 36563 Nadir Bourgeois MD [address] [place] [address] [phone] 05/02/2025 7:15 AM EST Office Visit [facility] Cardiopulmonary Rehabilitation [address] [place] [address] 96297 Nadir Bourgeois MD [address] [place] [address] [phone] 05/04/2025 7:15 AM EST Office Visit [facility] Cardiopulmonary Rehabilitation [address] [place] [address] 33343 Nadir Bougreois MD [address] [place] [address] [phone] 05/06/2025 7:15 AM EST Office Visit [facility] Cardiopulmonary Rehabilitation [address] [place] [address] 36765 Nadir Bourgeois MD [address] [place] [address] [phone] 05/09/2025 7:15 AM EST Office Visit [facility] Cardiopulmonary Rehabilitation [address] [place] [address] Nadir Bourgeois MD [address] [place] [address] [phone] 05/11/2025 7:15 AM EST Office Visit [facility] Cardiopulmonary Rehabilitation [address] [place] [address] Nadir Bourgeois MD [address] [place] [address] [phone] 05/13/2025 7:15 AM EST Office Visit [facility] Cardiopulmonary Rehabilitation [address] [place] [address] Nadir Bourgeois MD [address] [place] [address] [phone] 05/16/2025 7:15 AM EST Office Visit [facility] Cardiopulmonary Rehabilitation [address] [place] [address] 37[address] Nadir Bourgeois MD [address] [place] [address] [phone] 05/18/2025 7:15 AM EST Office Visit [facility] Cardiopulmonary Rehabilitation [address] [place] [address] 65170 Nadir Bourgeois MD [address] [place] [address] [phone] 05/20/2025 7:15 AM EST Office Visit [facility] Cardiopulmonary Rehabilitation [address] [place] [address] 72449 Nadir Bourgeois MD [address] [place] [address] [phone] 05/23/2025 7:15 AM EST Office Visit [facility] Cardiopulmonary Rehabilitation [address] [place] [address] 38574 Nadir Bourgeois MD [address] [place] [address] [phone] 05/25/2025 7:15 AM EST Office Visit [facility] Cardiopulmonary Rehabilitation [address] [place] [address] 14819 Nadir Bourgeois MD [address] [place] [address] [phone] 05/27/2025 7:15 AM EST Office Visit [facility] Cardiopulmonary Rehabilitation [address] [place] [address] 82928 Nadir Bourgeois MD [address] [place] [address] [phone] 05/30/2025 7:15 AM EST Office Visit [facility] Cardiopulmonary Rehabilitation [address] [place] [address] 30627 Nadir Bourgeois MD [address] [place] [address] [phone] 06/01/2025 7:15 AM EST Office Visit [facility] Cardiopulmonary Rehabilitation [address] [place] [address] 10285 Nadir Bourgeois MD [address] [place] [address] 52554 06/03/2025 7:15 AM EST Office Visit [facility] Cardiopulmonary Rehabilitation [address] [place] [address] [phone] Nadir Bourgeois MD [address] [place] [address] [phone] 08/23/2025 8:20 AM EST Office Visit [address] [place] [address], [address] [place] [address] Jaden Taveras MD [address] [place] [address] [phone] 09/02/2025 8:40 AM EDT Office Visit [address] [facility], [address] [place] [address] 47310 Nadir Bourgeois MD [address] [place] [address] [phone] 10/31/2025 10:15 AM EDT Appointment Echo Lab [address] [address] Nadir Bourgeois MD [address] [place] [address] [phone] 11/11/2025 11:20 AM EDT Office Visit [address] [place] [address], [address] [place] [address] Nadir Bourgeois MD [address] [place] [address] [phone] documented as of this encounter Results * US LOWER EXTREMITY NON-VASCULAR LIMITED (RIGHT) (08/30/2020 1:41 PM EST) Anatomical Region Laterality Modality Hip Right, Thigh Right, Knee Right, Leg Right, Ankle Right, Foot Right Ultrasound 08/30/2020 8:28 PM EST Impressions 08/30/2020 8:32 PM EST A simple cyst measuring up to 5.6 cm in maximum dimension, as described above, likely representing a Friedman's cyst within the right popliteal fossa. Narrative 08/30/2020 8:32 PM EST TECHNIQUE: US LOWER EXTREMITY NON-VASCULAR LIMITED (RIGHT) Focused sonographic evaluation of the right popliteal fossa COMPARISON: None FINDINGS: In the area of clinical abnormality, as reported by the patient in the right popliteal fossa, there is an anechoic cyst that measures 5.6 x 4.3 x 5.5 cm. It most likely represents a Friedman's cyst. There is no evidence of vascular flow within it. Procedure Note Hernando Jo MD, PhD - 08/30/2020 TECHNIQUE: US LOWER EXTREMITY NON-VASCULAR LIMITED (RIGHT) Focused sonographic evaluation of the right popliteal fossa COMPARISON: None FINDINGS: In the area of clinical abnormality, as reported by the patient in theright popliteal fossa, there is an anechoic cyst that measures 5.6 x 4.3 x5.5 cm. It most likely represents a Friedman's cyst. There is no evidence ofvascular flow within it. IMPRESSION: A simple cyst measuring up to 5.6 cm in maximum dimension, as describedabove, likely representing a Friedman's cyst within the right poplitealfossa. us Taco A Bigda DO IMG US EXTREMITY Final Result * TTE COMPREHENSIVE (08/30/2020 1:36 PM EST) Body Surface Area 1.9 m2 Height 170 cm Weight 77 kg Systolic BP 173 mmHg Diastolic BP 94 mmHg Left Atrium Dimension Anterior-Posterior 34 15 - 40 mm Aortic Valve Mean Gradient 15 mmHg Aortic Valve Time Velocity Integral 572 mm Aortic Valve Peak Velocity 259.0 cm/s Aortic Valve Peak Gradient 27 mmHg Aortic Sinus Diameter 37 mm Ascending Aorta Diameter 38 mm Inferior Vena Cava Diameter 14 0.0 - 21 mm Interventricular Septum Thickness 8 mm Left Ventricle Internal Diameter End Diastole 48 42 - 58 mm Left Ventricle Internal Diameter End Systole 34 25 - 40 mm Left Ventricular Outflow Tract Diameter 22.0 mm LVOT VTI REST 269 mm Left Ventricular Outflow Tract Velocity 1.2 m/s Left Ventricular Outflow Tract Gradient at Rest 6 mmHg Left Ventricular Posterior Wall Thickness 9 mm Ejection Fraction 65 50 - 75 Percent Mitral Valve Deceleration Time 239 ms Mitral Valve A Wave Speed 96.8 cm/s Mitral Valve E Wave Speed 92.5 cm/s Right Ventricle Basal Diameter 37.4 25 - 41 mm Tricuspid Valve Peak Velocity 2.2 m/s Raw LV EF% 50 % Left Atrial Volume 44 mL Left Atrial Volume Index 23.16 mL/m2 Aortic Valve Area 1.6 cm2 Aortic Valve Area Index 0.84 cm2/m2 Right Ventricle Peak Systolic Pressure 22 mmHg Right Ventricle TAPSE 27 mm Right Atrium Pressure Estimated 3 mmHg Right Ventricle to Right Atrium Pressure Gradient 19 mmHg Right Ventricle Pulse Doppler S Wave 14.6 cm/s Right Ventricle Linear Dimension 37 mm Aortic Valve Sinus Index 1 19 20 - 32 mm Ascending Aorta Diameter 20 mm Aortic Sinus Index 19 mm Ascending Aorta Index 20 mm Anatomical Region Laterality Modality Heart Ultrasound Narrative 08/30/2020 4:57 PM EST The left ventricle is normal in size and thickness. The left ventricular systolic function is normal with ejection fraction of 65%. There is no significant left ventricular wall motion abnormality. There is normal right ventricular size and function. There is moderate aortic valve calcification with mild restricted opening. There is trace tricuspid valve regurgitation. Pulmonary artery systolic pressure is normal. Compared to previous studies dated January 12, 2018, there are no significant changes noted. Left Ventricle The left ventricular cavity size and wall thickness are normal. Left ventricular systolic function is normal. There are no segmental left ventricular wall motion abnormalities noted. The estimated ejection fraction is 65% (Normal 50-75%). The left ventricular ejection fraction was measured by the single dimension method. Left ventricular diastolic function appears within normal limits for age. There is no evidence of left ventricular thrombus. Right Ventricle The right ventricular size is normal. The right ventricle measures 37 mm at the base (normal 25-41 mm). The right ventricular systolic function is normal. Left Atrium The left atrium is normal in size. The left atrial anterior-posterior dimension measures 34 mm (normal 15-40 mm). The LA volume is 44 mL. The LA volume index is 23.16 mL/m2 (normal indexed value is 16-34 mL/m2). The pulmonary venous flow profiles are normal. No evidence suggestive of pulmonary vein stenosis. Right Atrium The right atrium is normal in size. The IVC is normal in size (2.1cm or less). The IVC measures 14 mm (normal <=21 mm). The IVC demonstrates normal collapse with inspiration which is consistent with normal RA pressure. Mitral Valve The mitral valve appears normal. The E/A ratio is 1.0. The medial E' is 7.0 cm/s. The lateral E' is 7.5 cm/s. The E/E' average is 12.7. There is no evidence of mitral stenosis. There is mild mitral annular calcification. There is no significant mitral regurgitation detected by spectral and color Doppler. Tricuspid Valve The tricuspid valve appears normal. There is no evidence of tricuspid stenosis. There is evidence of trace tricuspid regurgitation by color and spectral Doppler. The systolic pulmonary artery pressure is within normal limits. The RV systolic pressure was estimated from the peak TV regurgitant velocity. The estimated RV systolic pressure is 22 mmHg assuming a right atrial pressure of 3 mmHg. The calculated peak RV-RA pressure gradient is 19 mmHg. Aortic Valve The aortic valve appears abnormal. There is moderate aortic valve calcification with mild restricted opening. The aortic valve is tricuspid. There is restricted aortic leaflet opening consistent with mild valvular aortic stenosis. The peak aortic valve gradient is 27 mmHg. The mean aortic gradient is 15 mmHg. The aortic valve area is 1.6 cm2. The aortic valve area was calculated by continuity equation. The Vmax is 259 cm/s. The Vmean is 183 cm/s. The LVOT velocity is 1.2 m/s. The peak velocity was obtained from the apical 5 chamber view. There is no evidence of aortic regurgitation by color and spectral Doppler. The visualized portions of the thoracic aorta appear normal. Pulmonic Valve Pulmonary valve was not well visualized. The pulmonary valve appears normal. There is no evidence of pulmonic stenosis. There is no evidence of pulmonary regurgitation by color and spectral Doppler. The pulmonary artery appears normal. Pericardium There is no evidence of pericardial effusion. Interatrial Septum The interatrial septum appears normal. General Findings The study quality was adequate. BP 173/94 pre study. BP 151/86 post study. Technique(s) used in the evaluation: Color flow Doppler and Spectral Doppler. The predominant rhythm during the study was sinus. Comparison Findings Compared to a prior TTE from 01/12/2018 us Taco A Bigda DO CV ECHO ORDERABLES Final Result documented in this encounter Visit Diagnoses Diagnosis Nonrheumatic aortic (valve) stenosis- Primary Synovial cyst of popliteal space (Friedman), right knee Synovial cyst of popliteal space (Friedman), right knee Nonrheumatic aortic (valve) stenosis documented in this encounter Care Teams Safety Risk Lead Relationship Specialty Start Date End Date Taco Molina DO [email or web address] PCP - General Internal Medicine 11/11/17 01/25/25 Taco Molina DO [address] [place] [id number] PCP - General Internal Medicine 01/26/25 documented as of this encounter Additional Source Comments The information contained in this document represents components of the legal health record. It is not the complete legal health record.[facility]
--- OUTSIDE RECORDS SUMMARY | 2025-03-16 18:12 | XMS_ITS | Encounter Summary ---
Author Organization [facility] Address [address] [facility] [address] [place] [address] Phone Care Team Providers Care Behavioral Therapist Name Role Phone DilipTaco norman Primary Care Provider [phone] DilipTaco norman Primary Care Provider [phone] Encounter Details Date Type Department Care Team (Late st Contact Info) Description 03/11/2023 Procedure Pass [facility], [address] [address] Social History Tobacco Use Types Packs/Day Years [...] Info) Description 12/27/2024 Procedure Pass [facility] [address] [place] [address] 03/18/2025 7:15 AM EDT Office Visit [facility] Cardiopulmonary Rehabilitation [address] [place] [address] 7[address] Nadir Bourgeois MD [address] [place] [address] 26789 03/21/2025 7:15 AM EDT Office Visit [facility] Cardiopulmonary Rehabilitation [address] [place] [address] 74687 Nadir Bourgeois MD [address] [place] [address] 06885 03/23/2025 7:15 AM EDT Office Visit [facility] Cardiopulmonary Rehabilitation [address] [place] [address] 16227 Nadir Bourgeois MD [address] [place] [address] 48910 03/25/2025 7:15 AM EDT Office Visit [facility] Cardiopulmonary Rehabilitation [address] [place] [address] 63000 Nadir Bourgeois MD [address] [place] [address] 95043 03/28/2025 7:15 AM EDT Office Visit [facility] Cardiopulmonary Rehabilitation [address] [place] [address] 78482 Nadir Bourgeois MD [address] [place] [address] 47819 03/30/2025 7:15 AM EDT Office Visit [facility] Cardiopulmonary Rehabilitation [address] [place] [address] 98275 Nadir Bourgeois MD [address] [place] [address] 90180 04/01/2025 7:15 AM EDT Office Visit [facility] Cardiopulmonary Rehabilitation [address] [place] [address] 18769 Nadir Bourgeois MD [address] [place] [address] 89117 04/04/2025 7:15 AM EDT Office Visit [facility] Cardiopulmonary Rehabilitation [address] [place] [address] 23088 Nadir Bourgeois MD [address] [place] [address] 38630 04/06/2025 7:15 AM EDT Office Visit [facility] Cardiopulmonary Rehabilitation [address] [place] [address] 40187 Nadir Bourgeois MD [address] [place] [address] 33564 04/08/2025 7:15 AM EDT Office Visit [facility] Cardiopulmonary Rehabilitation [address] [place] [address] 95910 Nadir Bourgeois MD [address] [place] [address] 57818 04/11/2025 7:15 AM EDT Office Visit [facility] Cardiopulmonary Rehabilitation [address] [place] [address] Nadir Bourgeois MD [address] [place] [address] 87718 04/13/2025 7:15 AM EDT Office Visit [facility] Cardiopulmonary Rehabilitation [address] [place] [address] Nadir Bourgeois MD [address] [place] [address] 84048 04/15/2025 7:15 AM EDT Office Visit [facility] Cardiopulmonary Rehabilitation [address] [place] [address] Nadir Bourgeois MD [address] [place] [address] 03980 04/18/2025 7:15 AM EDT Office Visit [facility] Cardiopulmonary Rehabilitation [address] [place] [address] Nadir Bourgeois MD [address] [place] [address] 98619 04/20/2025 7:15 AM EDT Office Visit [facility] Cardiopulmonary Rehabilitation [address] [place] [address] Nadir Bourgeois MD [address] [place] [address] 16900 04/20/2025 2:00 PM EDT Office Visit [facility] [address] [place] [address] 3rd Floor, [address] [place] [address] Macrina Pearson DNP [address] [facility], [address] [place] [address] 59[address] 04/22/2025 7:15 AM EDT Office Visit [facility] Cardiopulmonary Rehabilitation [address] [place] [address] Nadir Bourgeois MD [address] [place] [address] 77128 04/25/2025 7:15 AM EST Office Visit [facility] Cardiopulmonary Rehabilitation [address] [place] [address] Nadir Bourgeois MD [address] [place] [address] 66336 04/27/2025 7:15 AM EST Office Visit [facility] Cardiopulmonary Rehabilitation [address] [place] [address] 82491 Nadir Bourgeois MD [address] [place] [address] 78989 04/29/2025 7:15 AM EST Office Visit [facility] Cardiopulmonary Rehabilitation [address] [place] [address] 24429 Nadir Bourgeois MD [address] [place] [address] 71662 05/02/2025 7:15 AM EST Office Visit [facility] Cardiopulmonary Rehabilitation [address] [place] [address] 52560 Nadir Bourgeois MD [address] [place] [address] 38963 05/04/2025 7:15 AM EST Office Visit [facility] Cardiopulmonary Rehabilitation [address] [place] [address] Nadir Bourgeois MD [address] [place] [address] 97618 05/06/2025 7:15 AM EST Office Visit [facility] Cardiopulmonary Rehabilitation [address] [place] [address] Nadir Bourgeois MD [address] [place] [address] 05337 05/09/2025 7:15 AM EST Office Visit [facility] Cardiopulmonary Rehabilitation [address] [place] [address] Nadir Bourgeois MD [address] [place] [address] 10212 05/11/2025 7:15 AM EST Office Visit [facility] Cardiopulmonary Rehabilitation [address] [place] [address] Nadir Bourgeois MD [address] [place] [address] 44174 05/13/2025 7:15 AM EST Office Visit [facility] Cardiopulmonary Rehabilitation [address] [place] [address] 52918 Nadir Bourgeois MD [address] [place] [address] [phone] 05/16/2025 7:15 AM EST Office Visit [facility] Cardiopulmonary Rehabilitation [address] [place] [address] 32793 Nadir Bourgeois MD [address] [place] [address] 71530 05/18/2025 7:15 AM EST Office Visit [facility] Cardiopulmonary Rehabilitation [address] [place] [address] 66303 Nadir Bourgeois MD [address] [place] [address] 37023 05/20/2025 7:15 AM EST Office Visit [facility] Cardiopulmonary Rehabilitation [address] [place] [address] 13385 Nadir Bourgeois MD [address] [place] [address] 60884 05/23/2025 7:15 AM EST Office Visit [facility] Cardiopulmonary Rehabilitation [address] [place] [address] 29291 Nadir Bourgeois MD [address] [place] [address] 24375 05/25/2025 7:15 AM EST Office Visit [facility] Cardiopulmonary Rehabilitation [address] [place] [address] 68334 Nadir Bourgeois MD [address] [place] [address] 43753 05/27/2025 7:15 AM EST Office Visit [facility] Cardiopulmonary Rehabilitation [address] [place] [address] 77110 Nadir Bourgeois MD [address] [place] [address] 04195 05/30/2025 7:15 AM EST Office Visit [facility] Cardiopulmonary Rehabilitation [address] [place] [address] 90914 Nadir Bourgeois MD [address] [place] [address] 45581 06/01/2025 7:15 AM EST Office Visit [facility] Cardiopulmonary Rehabilitation [address] [place] [address] 46523 Nadir Bourgeois MD [address] [place] [address] 27371 06/03/2025 7:15 AM EST Office Visit [facility] Cardiopulmonary Rehabilitation [address] [place] [address] 59208 Nadir Bourgeois MD [address] [place] [address] 67190 08/23/2025 8:20 AM EST Office Visit [facility] [address], [address] [place] [address] 91207 Jaden Taveras MD [address] [place] [address] 58437 09/02/2025 8:40 AM EDT Office Visit [facility] [address], [address] [place] [address] 66392 Nadir Bourgeois MD [address] [place] [address] 77806 10/31/2025 10:15 AM EDT Appointment [facility] [address] [address] Nadir Bourgeois MD [address] [place] [address] 01212 11/11/2025 11:20 AM EDT Office Visit [address], [address] [place] [address] 25428 Nadir Bourgeois MD [address] [place] [address] 37122 documented as of this encounter Visit Diagnoses Not on filedocumented in this encounter Care Teams Behavioral Therapist Relationship Specialty Start Date End Date Taco Molina DO PCP - General Internal Medicine 11/11/17 01/25/25 Taco Molina DO [address] [place] [address] (work) [email or web address] PCP - General Internal Medicine 01/26/25 documented as of this encounter Additional Source Comments The information contained in this document represents components of the legal health record. It is not the complete legal health record.[facility]
--- OUTSIDE RECORDS SUMMARY | 2025-03-16 18:12 | XMS_ITS | Encounter Summary ---
Author Organization [facility] Address [address] [place] [address] [place] [address] Phone Care Team Providers Care Dry Wall Finisher Name Role Phone Taco Molina DO Primary Care Provider [phone] Reason for Referral * Consultation (Within 2 weeks) - New Request Specialty Diagnoses / Procedures Referred By Janis novak Referred To Contact Cardiac Rehabilitation Diagnoses Aortic valve disorder Nadir Bourgeois MD [address] [place] [address] Phone: tel: fax: mailto:[email or web address] [address] [place] [address] Phone: tel: Referral ID Status Reason Start Date Expiration Date V isits Requested Visits Authorized [id number] New Request 03/11/2025 03/11/2026 1 1 Encounter Details Date Type Department Care Team (Late st Contact Info) Description 03/11/2025 Orders Only [facility] [address] [facility] 3rd Floor, [address] [place] [address] Nadir Bourgeois MD [address] [place] [address] 53301 Aortic valve disorder (Primary Dx) Social History Tobacco Use Types [...] Info) Description 12/27/2024 Procedure Pass Echo [facility] [place] [address] [place] [address] 03/18/2025 7:15 AM EDT Office Visit [facility] Cardiopulmonary Rehabilitation [address] [place] [address] Nadir Bourgeois MD [address] [place] [address] 24566 03/21/2025 7:15 AM EDT Office Visit [facility] Cardiopulmonary Rehabilitation [address] [place] [address] Nadir Bourgeois MD [address] [place] [address] 18833 03/23/2025 7:15 AM EDT Office Visit [facility] Cardiopulmonary Rehabilitation [address] [place] [address] Nadir Bourgeois MD [address] [place] [address] 34487 03/25/2025 7:15 AM EDT Office Visit [facility] Cardiopulmonary Rehabilitation [address] [place] [address] Nadir Bourgeois MD [address] [place] [address] 80646 03/28/2025 7:15 AM EDT Office Visit [facility] Cardiopulmonary Rehabilitation [address] [place] [address] Nadir Bourgeois MD [address] [place] [address] 93475 03/30/2025 7:15 AM EDT Office Visit [facility] Cardiopulmonary Rehabilitation [address] [place] [address] 82435 Nadir Bourgeois MD [address] [place] [address] 88202 04/01/2025 7:15 AM EDT Office Visit [facility] Cardiopulmonary Rehabilitation [address] [place] [address] Nadir Bourgeois MD [address] [place] [address] 52739 04/04/2025 7:15 AM EDT Office Visit [facility] Cardiopulmonary Rehabilitation [address] [place] [address] 16472 Nadir Bourgeois MD [address] [place] [address] 72977 04/06/2025 7:15 AM EDT Office Visit [facility] Cardiopulmonary Rehabilitation [address] [place] [address] Nadir Bourgeois MD [address] [place] [address] 20481 04/08/2025 7:15 AM EDT Office Visit [facility] Cardiopulmonary Rehabilitation [address] [place] [address] 42728 Nadir Bourgeois MD [address] [place] [address] 92671 04/11/2025 7:15 AM EDT Office Visit [facility] Cardiopulmonary Rehabilitation [address] [place] [address] Nadir Bourgeois MD [address] [place] [address] 18307 04/13/2025 7:15 AM EDT Office Visit [facility] Cardiopulmonary Rehabilitation [address] [place] [address] Nadir Bourgeois MD [address] [place] [address] 12645 04/15/2025 7:15 AM EDT Office Visit [facility] Cardiopulmonary Rehabilitation [address] [place] [address] 65109 Nadir Bourgeois MD [address] [place] [address] 79313 04/18/2025 7:15 AM EDT Office Visit [facility] Cardiopulmonary Rehabilitation [address] [place] [address] 10234 Nadir Bourgeois MD [address] [place] [address] 20573 04/20/2025 7:15 AM EDT Office Visit [facility] Cardiopulmonary Rehabilitation [address] [place] [address] Nadir Bourgeois MD [address] [place] [address] 80985 04/20/2025 2:00 PM EDT Office Visit [facility] [address] [place] [address] 3rd Floor, [address] [place] [address] Macrina Pearson DNP [address] [place] [address], [address] [address] 04/22/2025 7:15 AM EDT Office Visit [facility] Cardiopulmonary Rehabilitation [address] [place] [address] Nadir Bourgeois MD [address] [place] [address] 43206 04/25/2025 7:15 AM EST Office Visit [facility] Cardiopulmonary Rehabilitation [address] [place] [address] Nadir Bourgeois MD [address] [place] [address] 52874 04/27/2025 7:15 AM EST Office Visit [facility] Cardiopulmonary Rehabilitation [address] [place] [address] Nadir Bourgeois MD [address] [place] [address] 33573 04/29/2025 7:15 AM EST Office Visit [facility] Cardiopulmonary Rehabilitation [address] [place] [address] Nadir Bourgeois MD [address] [place] [address] 49183 05/02/2025 7:15 AM EST Office Visit [facility] Cardiopulmonary Rehabilitation [address] [place] [address] 44781 Nadir Bourgeois MD [address] [place] [address] 20594 05/04/2025 7:15 AM EST Office Visit [facility] Cardiopulmonary Rehabilitation [address] [place] [address] 30978 Nadir Bourgeois MD [address] [place] [address] 60582 05/06/2025 7:15 AM EST Office Visit [facility] Cardiopulmonary Rehabilitation [address] [place] [address] 12479 Nadir Bourgeois MD [address] [place] [address] 87507 05/09/2025 7:15 AM EST Office Visit [facility] Cardiopulmonary Rehabilitation [address] [place] [address] 67724 Nadir Bourgeois MD [address] [place] [address] 34971 05/11/2025 7:15 AM EST Office Visit [facility] Cardiopulmonary Rehabilitation [address] [place] [address] 13129 Nadir Bourgeois MD [address] [place] [address] 14586 05/13/2025 7:15 AM EST Office Visit [facility] Cardiopulmonary Rehabilitation [address] [place] [address] 83949 Nadir Bourgeois MD [address] [place] [address] 39943 05/16/2025 7:15 AM EST Office Visit [facility] Cardiopulmonary Rehabilitation [address] [place] [address] 19066 Nadir Bourgeois MD [address] [place] [address] 70924 05/18/2025 7:15 AM EST Office Visit [facility] Cardiopulmonary Rehabilitation [address] [place] [address] Nadir Bourgeois MD [address] [place] [address] 81377 05/20/2025 7:15 AM EST Office Visit [facility] Cardiopulmonary Rehabilitation [address] [place] [address] 38014 Nadir Bourgeois MD [address] [place] [address] 90461 05/23/2025 7:15 AM EST Office Visit [facility] Cardiopulmonary Rehabilitation [address] [place] [address] 17254 Nadir Bourgeois MD [address] [place] [address] 61993 05/25/2025 7:15 AM EST Office Visit [facility] Cardiopulmonary Rehabilitation [address] [place] [address] 02891 Nadir Bougreois MD [address] [place] [address] 69146 05/27/2025 7:15 AM EST Office Visit [facility] Cardiopulmonary Rehabilitation [address] [place] [address] 36597 Nadir Bourgeois MD [address] [place] [address] 88824 05/30/2025 7:15 AM EST Office Visit [facility] Cardiopulmonary Rehabilitation [address] [place] [address] 39253 Nadir Bourgeois MD [address] [place] [address] 32924 06/01/2025 7:15 AM EST Office Visit [facility] Cardiopulmonary Rehabilitation [address] [place] [address] 19799 Nadir Bourgeois MD [address] [place] [address] 77161 06/03/2025 7:15 AM EST Office Visit [facility] Cardiopulmonary Rehabilitation [address] [place] [address] 65364 Nadir Bourgeois MD [address] [place] [address] 97262 08/23/2025 8:20 AM EST Office Visit [facility] [address], [address] [place] [address] 297[address] Jaden Taveras MD [address] [place] [address] 96686 09/02/2025 8:40 AM EDT Office Visit [address], [address] [place] [address] 707[address] Nadir Bourgeois MD [address] [place] [address] 94656 10/31/2025 10:15 AM EDT Appointment Echo Lab [address] [address] Nadir Bourgeois MD [address] [place] [address] 26445 11/11/2025 11:20 AM EDT Office Visit [facility] 3[facility], [address] [place] [address] Nadir Bourgeois MD [address] [place] [address] 97[address] [email or web address] Scheduled Referrals Name Type Priority Associated Diagnoses Order Schedule Ambulatory referral to [facility] Cardiac Rehab Outpatient Referral Routine Aortic valve disorder Ordered: 03/11/2025 documented as of this encounter Visit Diagnoses Diagnosis Aortic valve disorder- Primary Aortic valve disorders documented in this encounter Additional Health Concerns Assessment Noted Time PHQ-9 Depression Total Score: 1 03/11/20 1:55 PM EDT documented as of this encounter Care Teams Dry Wall Finisher Relationship Specialty Start Date End Date Taco Molina DO [address] [facility] [place] [address] [place] [address] PCP - General Internal Medicine 01/26/25 documented as of this encounter Additional Source Comments The information contained in this document represents components of the legal health record. It is not the complete legal health record[facility]
--- OUTSIDE RECORDS SUMMARY | 2025-03-16 18:12 | XMS_ITS | Encounter Summary ---
Author Organization [facility] Address [address] [place] [address] [place] [phone] Phone Care Team Providers Care Residential Service Technician Name Role Phone DilipTaco norman Primary Care Provider [phone] DilipTaco norman Primary Care Provider [phone] Encounter Details Date Type Department Care Team (Late st Contact Info) Description 07/04/2022 Procedure Pass [facility] Endoscopy Admitting Dept Virtual Department [address] [place] [address] Social History Tobacco Use Types Packs/Day Years Used Date Smoking Tobacco: Former Cigarettes Q uit: 07/06/1970 Smokeless Tobacco: Never Alcohol Use Standard Drinks/Week Comments Yes 21 (1 standard drink = 0.6 oz pu re alcohol) 1-4 drinks daily Intimate Partner Violence Answer Date R ecorded [...] 12/27/2024 Procedure Pass Echo Lab Jer [address] [place] [address] 03/18/2025 7:15 AM EDT Office Visit [facility] Cardiopulmonary Rehabilitation [address] [place] [address] 91208 Nadir Bourgeois MD [address] [place] [address] 00235 03/21/2025 7:15 AM EDT Office Visit [facility] Cardiopulmonary Rehabilitation [address] [place] [address] 82593 Nadir Bourgeois MD [address] [place] [address] 26118 03/23/2025 7:15 AM EDT Office Visit [facility] Cardiopulmonary Rehabilitation [address] [place] [address] 58682 Nadir Bourgeois MD [address] [place] [address] 71564 03/25/2025 7:15 AM EDT Office Visit [facility] Cardiopulmonary Rehabilitation [address] [place] [address] 76748 Nadir Bourgeois MD [address] [place] [address] 36090 03/28/2025 7:15 AM EDT Office Visit [facility] Cardiopulmonary Rehabilitation [address] [place] [address] 14147 Nadir Borugeois MD [address] [place] [address] 58116 03/30/2025 7:15 AM EDT Office Visit [facility] Cardiopulmonary Rehabilitation [address] [place] [address] Nadir Bourgeois MD [address] [place] [address] 23466 04/01/2025 7:15 AM EDT Office Visit [facility] Cardiopulmonary Rehabilitation [address] [place] [address] Nadir Bourgeois MD [address] [place] [address] 40879 04/04/2025 7:15 AM EDT Office Visit [facility] Cardiopulmonary Rehabilitation [address] [place] [address] Nadir Bourgeois MD [address] [place] [address] 71235 04/06/2025 7:15 AM EDT Office Visit [facility] Cardiopulmonary Rehabilitation [address] [place] [address] 70905 Nadir Bourgeois MD [address] [place] [address] 10191 04/08/2025 7:15 AM EDT Office Visit [facility] Cardiopulmonary Rehabilitation [address] [place] [address] 17610 Nadir Bourgeois MD [address] [place] [address] 89138 04/11/2025 7:15 AM EDT Office Visit [facility] Cardiopulmonary Rehabilitation [address] [place] [address] 16274 Nadir Bourgeois MD [address] [place] [address] 49287 04/13/2025 7:15 AM EDT Office Visit [facility] Cardiopulmonary Rehabilitation [address] [place] [address] 977[address] Nadir Bourgeois MD [address] [place] [address] 11719 04/15/2025 7:15 AM EDT Office Visit [facility] Cardiopulmonary Rehabilitation [address] [place] [address] Nadir Bourgeois MD [address] [place] [address] 11789 04/18/2025 7:15 AM EDT Office Visit [facility] Cardiopulmonary Rehabilitation [address] [place] [address] Nadir Bourgeois MD [address] [place] [address] 14454 04/20/2025 7:15 AM EDT Office Visit [facility] Cardiopulmonary Rehabilitation [address] [place] [address] Nadir Bourgeois MD [address] [place] [address] 69436 04/20/2025 2:00 PM EDT Office Visit [facility] [address] [place] [address], [address] [address] Macrina Pearson DNP [address] [place] [address] 52189 04/22/2025 7:15 AM EDT Office Visit [facility] Cardiopulmonary Rehabilitation [address] [place] [address] Nadir Bourgeois MD [address] [place] [address] 17711 04/25/2025 7:15 AM EST Office Visit [facility] Cardiopulmonary Rehabilitation [address] [place] [address] Nadir Bourgeois MD [address] [place] [address] 03593 04/27/2025 7:15 AM EST Office Visit [facility] Cardiopulmonary Rehabilitation [address] [place] [address] Nadir Bourgeois MD [address] [place] [address] 52661 04/29/2025 7:15 AM EST Office Visit [facility] Cardiopulmonary Rehabilitation [address] [place] [address] aNdir Bourgeois MD [address] [place] [address] 13322 05/02/2025 7:15 AM EST Office Visit [facility] Cardiopulmonary Rehabilitation [address] [place] [address] 927[address] Nadir Bourgeois MD [address] [place] [address] 95945 05/04/2025 7:15 AM EST Office Visit [facility] Cardiopulmonary Rehabilitation [address] [place] [address] 42188 Nadir Bourgeois MD [address] [place] [address] 60371 05/06/2025 7:15 AM EST Office Visit [facility] Cardiopulmonary Rehabilitation [address] [place] [address] 35924 Nadir Bourgeois MD [address] [place] [address] 96653 05/09/2025 7:15 AM EST Office Visit [facility] Cardiopulmonary Rehabilitation [address] [place] [address] 77922 Nadir Bourgeois MD [address] [place] [address] 33857 05/11/2025 7:15 AM EST Office Visit [facility] Cardiopulmonary Rehabilitation [address] [place] [address] Nadir Bourgeois MD [address] [place] [address] 36719 05/13/2025 7:15 AM EST Office Visit [facility] Cardiopulmonary Rehabilitation [address] [place] [address] 47029 Nadir Bourgeois MD [address] [place] [address] 83511 05/16/2025 7:15 AM EST Office Visit [facility] Cardiopulmonary Rehabilitation [address] [place] [address] 07057 Nadir Bourgeois MD [address] [place] [address] 25681 05/18/2025 7:15 AM EST Office Visit [facility] Cardiopulmonary Rehabilitation [address] [place] [address] 04779 Nadir Bourgeois MD [address] [place] [address] 46988 05/20/2025 7:15 AM EST Office Visit [facility] Cardiopulmonary Rehabilitation [address] [place] [address] 64585 Nadir Bourgeois MD [address] [place] [address] 94956 05/23/2025 7:15 AM EST Office Visit [facility] Cardiopulmonary Rehabilitation [address] [place] [address] 56432 Nadir Bourgeois MD [address] [place] [address] 19388 05/25/2025 7:15 AM EST Office Visit [facility] Cardiopulmonary Rehabilitation [address] [place] [address] 22677 Nadir Bourgeois MD [address] [place] [address] 00995 05/27/2025 7:15 AM EST Office Visit [facility] Cardiopulmonary Rehabilitation [address] [place] [address] 17808 Nadir Bourgeois MD [address] [place] [address] 61859 05/30/2025 7:15 AM EST Office Visit [facility] Cardiopulmonary Rehabilitation [address] [place] [address] 11097 Nadir Bourgeois MD [address] [place] [address] 78731 06/01/2025 7:15 AM EST Office Visit [facility] Cardiopulmonary Rehabilitation [address] [place] [address] 18657 Nadir Bourgeois MD [address] [place] [address] 82145 06/03/2025 7:15 AM EST Office Visit [facility] Cardiopulmonary Rehabilitation [address] [place] [address] 51894 Nadir Bourgeois MD [address] [place] [address] 02055 08/23/2025 8:20 AM EST Office Visit [facility] [address] [facility] [address] [facility] [place] [address] Jaden Taveras MD [address] [place] [address] 72174 09/02/2025 8:40 AM EDT Office Visit [facility] [address] Floor, [address] [place] [address] Nadir Bourgeois MD [address] [place] [address] 76726 10/31/2025 10:15 AM EDT Appointment Echo Lab [address] [address] Nadir Bourgeois MD [address] [place] [address] 08617 11/11/2025 11:20 AM EDT Office Visit [address]rd Floor, [address] [place] [address] Nadir Bourgeois MD [address] [place] [address] 67719 documented as of this encounter Visit Diagnoses Not on filedocumented in this encounter Care Teams Residential Service Technician Relationship Specialty Start Date End Date Taco Molina DO PCP - General Internal Medicine 11/11/17 01/25/25 Taco Molina DO [address] [place] [address] PCP - General Internal Medicine 01/26/25 documented as of this encounter Additional Source Comments The information contained in this document represents components of the legal health record. It is not the complete legal health record.[facility]
--- OUTSIDE RECORDS SUMMARY | 2025-03-16 18:12 | XMS_ITS | Encounter Summary ---
Author Organization [facility] Address [address] [facility] [address] [place] [phone] Phone Care Team Providers Care Complaint Evaluation Officer Name Role Phone Taco Molina DO Primary Care Provider [phone] Taco Molina DO Primary Care Provider [phone] Encounter Details Date Type Department Care Team ([facility] st Contact Info) Description 03/06/2023 Transcribe Orders Virtual Department [address] [place] [address] Taco Molina DO [address] [facility] [place] [address] [email or web address] Low back pain with right-sided sciatica, unspecified back pain laterality, unspecified chronicity (Primary Dx) Social History Tobacco [...] Info) Description 12/27/2024 Procedure Pass Echo Lab [place] [address] 03/18/2025 7:15 AM EDT Office Visit [facility] Cardiopulmonary Rehabilitation [address] [place] [address] 71504 Nadir Bourgeois MD [address] [place] [address] 27009 03/21/2025 7:15 AM EDT Office Visit [facility] Cardiopulmonary Rehabilitation [address] [place] [address] Nadir Bourgeois MD [address] [place] [address] 13654 03/23/2025 7:15 AM EDT Office Visit [facility] Cardiopulmonary Rehabilitation [address] [place] [address] Nadir Bourgeois MD [address] [place] [address] 91358 03/25/2025 7:15 AM EDT Office Visit [facility] Cardiopulmonary Rehabilitation [address] [place] [address] Nadir Bourgeois MD [address] [place] [address] 39804 03/28/2025 7:15 AM EDT Office Visit [facility] Cardiopulmonary Rehabilitation [address] [place] [address] 78661 Nadir Bourgeois MD [address] [place] [address] 54497 03/30/2025 7:15 AM EDT Office Visit [facility] Cardiopulmonary Rehabilitation [address] [place] [address] 70111 Nadir Bourgeois MD [address] [place] [address] 29205 04/01/2025 7:15 AM EDT Office Visit [facility] Cardiopulmonary Rehabilitation [address] [place] [address] 66469 Nadir Bourgeois MD [address] [place] [address] 19534 04/04/2025 7:15 AM EDT Office Visit [facility] Cardiopulmonary Rehabilitation [address] [place] [address] 02489 Nadir Bourgeois MD [address] [place] [address] 51666 04/06/2025 7:15 AM EDT Office Visit [facility] Cardiopulmonary Rehabilitation [address] [place] [address] 05832 Nadir Bourgeois MD [address] [place] [address] 08105 04/08/2025 7:15 AM EDT Office Visit [facility] Cardiopulmonary Rehabilitation [address] [place] [address] 25362 Nadir Bourgeois MD [address] [place] [address] 62583 04/11/2025 7:15 AM EDT Office Visit [facility] Cardiopulmonary Rehabilitation [address] [place] [address] Nadir Bourgeois MD [address] [place] [address] 54422 04/13/2025 7:15 AM EDT Office Visit [facility] Cardiopulmonary Rehabilitation [address] [place] [address] Nadir Bourgeois MD [address] [place] [address] 03042 04/15/2025 7:15 AM EDT Office Visit [facility] Cardiopulmonary Rehabilitation [address] [place] [address] Nadir Bourgeois MD [address] [place] [address] 55227 04/18/2025 7:15 AM EDT Office Visit [facility] Cardiopulmonary Rehabilitation [address] [place] [address] Nadir Bourgeois MD [address] [place] [address] 61153 04/20/2025 7:15 AM EDT Office Visit [facility] Cardiopulmonary Rehabilitation [address] [place] [address] Nadir Bourgeois MD [address] [place] [address] 74693 04/20/2025 2:00 PM EDT Office Visit [facility] [address] [place] [address] 3rd Floor, [address] [address] Macrina Pearson, DNP [address] [facility], [address] [address] 04/22/2025 7:15 AM EDT Office Visit [facility] Cardiopulmonary Rehabilitation [address] [place] [address] 94097 Nadir Bourgeois MD [address] [place] [address] [phone] 04/25/2025 7:15 AM EST Office Visit [facility] Cardiopulmonary Rehabilitation [address] [place] [address] 32386 Nadir Bourgeois MD [address] [place] [address] 42507 04/27/2025 7:15 AM EST Office Visit [facility] Cardiopulmonary Rehabilitation [address] [place] [address] 76901 Nadir Bourgeois MD [address] [place] [address] 07122 04/29/2025 7:15 AM EST Office Visit [facility] Cardiopulmonary Rehabilitation [address] [place] [address] 44765 Nadir Bourgeois MD [address] [place] [address] 58772 05/02/2025 7:15 AM EST Office Visit [facility] Cardiopulmonary Rehabilitation [address] [place] [address] 51299 Nadir Bourgeois MD [address] [place] [address] 67235 05/04/2025 7:15 AM EST Office Visit [facility] Cardiopulmonary Rehabilitation [address] [place] [address] 58925 Nadir Bourgeois MD [address] [place] [address] 50920 05/06/2025 7:15 AM EST Office Visit [facility] Cardiopulmonary Rehabilitation [address] [place] [address] 48843 Nadir Bourgeois MD [address] [place] [address] 23679 05/09/2025 7:15 AM EST Office Visit [facility] Cardiopulmonary Rehabilitation [address] [place] [address] Nadir Bourgeois MD [address] [place] [address] 09505 05/11/2025 7:15 AM EST Office Visit [facility] Cardiopulmonary Rehabilitation [address] [place] [address] 37650 Nadir Bourgeois MD [address] [place] [address] 58460 05/13/2025 7:15 AM EST Office Visit [facility] Cardiopulmonary Rehabilitation [address] [place] [address] 90596 Nadir Bourgeois MD [address] [place] [address] 74151 05/16/2025 7:15 AM EST Office Visit [facility] Cardiopulmonary Rehabilitation [address] [place] [address] Nadir Bourgeois MD [address] [place] [address] 78519 05/18/2025 7:15 AM EST Office Visit [facility] Cardiopulmonary Rehabilitation [address] [place] [address] 63232 Nadir Bourgeois MD [address] [place] [address] 25313 05/20/2025 7:15 AM EST Office Visit [facility] Cardiopulmonary Rehabilitation [address] [place] [address] 63659 Nadir Bourgeois MD [address] [place] [address] 93058 05/23/2025 7:15 AM EST Office Visit [facility] Cardiopulmonary Rehabilitation [address] [place] [address] 29704 Nadir Bourgeois MD [address] [place] [address] 60227 05/25/2025 7:15 AM EST Office Visit [facility] Cardiopulmonary Rehabilitation [address] [place] [address] 63132 Nadir Bourgeois MD [address] [place] [address] 45545 05/27/2025 7:15 AM EST Office Visit [facility] Cardiopulmonary Rehabilitation [address] [place] [address] 95343 Nadir Bourgeois MD [address] [place] [address] 59268 05/30/2025 7:15 AM EST Office Visit [facility] Cardiopulmonary Rehabilitation [address] [place] [address] 69697 Nadir Bourgeois MD [address] [place] [address] 75787 06/01/2025 7:15 AM EST Office Visit [facility] Cardiopulmonary Rehabilitation [address] [place] [address] 32749 Nadir Bourgeois MD [address] [place] [address] 41828 06/03/2025 7:15 AM EST Office Visit [facility] Cardiopulmonary Rehabilitation [address] [place] [address] Nadir Bourgeois MD [address] [place] [address] 83997 08/23/2025 8:20 AM EST Office Visit [facility] [address] [place] [address], [address] [place] [address] Jaden Taveras MD [address] [place] [address] 42805 09/02/2025 8:40 AM EDT Office Visit [address], [address] [place] [address] 299[address] Nadir Bourgeois MD [address] [place] [address] [phone] 10/31/2025 10:15 AM EDT Appointment Echo Lab [address] [address] Nadir Bourgeois MD [address] [place] [address] 52453 11/11/2025 11:20 AM EDT Office Visit [address], [address] [place] [address] Nadir Bourgeois MD [address] [place] [address] 30120 documented as of this encounter Results * XR LUMBOSACRAL SPINE 2-3 VIEWS (03/06/2023 12:22 PM EDT) Anatomical Region Laterality Modality L-spine Computed Radiogr aphy 03/06/2023 10:1 2 PM EDT Impressions 03/06/2023 10:13 PM EDT Severe lumbar spine degenerative change, worst at L4-5 and L5-S1. Narrative 03/06/2023 10:13 PM EDT XR LUMBOSACRAL SPINE 2-3 VIEWS COMPARISON: None FINDINGS: ALIGNMENT: 9 mm L5-S1 anterolisthesis 6 mm L3-4 retrolisthesis. VERTEBRAE: Bones demineralized. Vertebral body heights preserved. DISCS: Disc height loss noted sclerosis and marginal osteophytes at all levels. FACETS: Facet arthropathy L2-S1. PARASPINAL SOFT TISSUES: Aorta moderately calcified. Sacroiliac joint sclerosis and bony proliferative change, right worse than left. Procedure Note Red Montejo MD - 03/06/2023 XR LUMBOSACRAL SPINE 2-3 VIEWS COMPARISON: None FINDINGS: ALIGNMENT: 9 mm L5-S1 anterolisthesis 6 mm L3-4 retrolisthesis. VERTEBRAE: Bones demineralized. Vertebral body heights preserved. DISCS: Disc height loss noted sclerosis and marginal osteophytes at alllevels. FACETS: Facet arthropathy L2-S1. PARASPINAL SOFT TISSUES: Aorta moderately calcified. Sacroiliac jointsclerosis and bony proliferative change, right worse than left. 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 Taco Molina DO IMG XR SPINE Final Result documented in this encounter Visit Diagnoses Diagnosis Low back pain with right-sided sciatica, unspecified back pain laterality, unspecified chronicity- Primary Low back pain with right-sided sciatica, unspecified back pain laterality, unspecified chronicity documented in this encounter Care Teams Complaint Evaluation Officer Relationship Specialty Start Date End Date Taco Molina DO [email or web address] PCP - General Internal Medicine 11/11/17 01/25/25 Taco Molina DO [address] [place] [address] [email or web address] PCP - General Internal Medicine 01/26/25 documented as of this encounter Additional Source Comments The information contained in this document represents components of the legal health record. It is not the complete legal health record.[facility]
--- OUTSIDE RECORDS SUMMARY | 2025-03-16 18:12 | XMS_ITS | Encounter Summary ---
Author Organization [facility] Address [address] [place] [phone] Phone Care Team Providers Care Receiving Distribution Station Operator Name Role Phone Taco Molina Primary Care Provider [phone] Taco Molina Primary Care Provider [phone] Encounter Details Date Type Department Care Team (Late st Contact Info) Description 08/14/2020 Procedure Pass [facility] [address] [place] [address] Social History Tobacco Use Types Packs/Day Years [...] 12/27/2024 Procedure Pass Echo Lab [address] [place] [address] 03/18/2025 7:15 AM EDT Office Visit [facility] [address] [place] [address] Nadir Bourgeois MD [address] [place] [address] 00228 03/21/2025 7:15 AM EDT Office Visit [facility] [address] [place] [address] Nadir Bourgeois MD [address] [place] [address] 93631 03/23/2025 7:15 AM EDT Office Visit [facility] Card[facility] Rehabilitation [address] [place] [address] Nadir Bourgeois MD [address] [place] [address] 56833 03/25/2025 7:15 AM EDT Office Visit [facility] Card[facility] Rehabilitation [address] [place] [address] Nadir Bourgeois MD [address] [place] [address] 58325 03/28/2025 7:15 AM EDT Office Visit [facility] Rehabilitation [address] [place] [address] 08131 Naidr Bourgeois MD [address] [place] [address] 53785 03/30/2025 7:15 AM EDT Office Visit [facility] Rehabilitation [address] [place] [address] Nadir Bourgeois MD [address] [place] [address] 50569 04/01/2025 7:15 AM EDT Office Visit [facility] Rehabilitation [address] [place] [address] Nadir Bourgeois MD [address] [place] [address] 78560 04/04/2025 7:15 AM EDT Office Visit [facility] Rehabilitation [address] [place] [address] Nadir Bourgeois MD [address] [place] [address] 95213 04/06/2025 7:15 AM EDT Office Visit [facility] Card[facility] Rehabilitation [address] [place] [address] Nadir Bourgeois MD [address] [place] [address] 13823 04/08/2025 7:15 AM EDT Office Visit [facility] Rehabilitation [address] [place] [address] 88371 Nadir Bourgeois MD [address] [place] [address] 04436 04/11/2025 7:15 AM EDT Office Visit [facility] [address] [place] [address] 32862 Nadir Bourgeois MD [address] [place] [address] 34491 04/13/2025 7:15 AM EDT Office Visit [facility] Rehabilitation [address] [place] [address] 66[address] Nadir Bourgeois MD [address] [place] [address] 25560 04/15/2025 7:15 AM EDT Office Visit [facility] Rehabilitation [address] [place] [address] 34546 Nadir Bourgeois MD [address] [place] [address] 03372 04/18/2025 7:15 AM EDT Office Visit [facility] Card[facility] Rehabilitation [address] [place] [address] Nadir Bourgeois MD [address] [place] [address] 22763 04/20/2025 7:15 AM EDT Office Visit [facility] Card[facility] Rehabilitation [address] [place] [address] Nadir Bourgeois MD [address] [place] [address] 62445 04/20/2025 2:00 PM EDT Office Visit [facility] [address] [place] [address], [address] [address] Macrina Pearson DNP [address] [place] [address] 04/22/2025 7:15 AM EDT Office Visit [facility] Card[facility] Rehabilitation [address] [place] [address] Nadir Bourgeois MD [address] [place] [address] 43113 04/25/2025 7:15 AM EST Office Visit [facility] Card[facility] Rehabilitation [address] [place] [address] Nadir Bourgeois MD [address] [place] [address] [phone] 04/27/2025 7:15 AM EST Office Visit [facility] Card[facility] Rehabilitation [address] [place] [address] Nadir Bourgeois MD [address] [place] [address] 02086 04/29/2025 7:15 AM EST Office Visit [facility] Card[facility] Rehabilitation [address] [place] [address] Nadir Bourgeois MD [address] [place] [address] 34474 05/02/2025 7:15 AM EST Office Visit [facility] Card[facility] Rehabilitation [address] [place] [address] Nadir Bourgeois MD [address] [place] [address] 83988 05/04/2025 7:15 AM EST Office Visit [facility] Rehabilitation [address] [place] [address] 56771 Nadir Bourgeois MD [address] [place] [address] 57235 05/06/2025 7:15 AM EST Office Visit [facility] Rehabilitation [address] [place] [address] 17228 Nadir Bourgeois MD [address] [place] [address] [phone] 05/09/2025 7:15 AM EST Office Visit [facility] Rehabilitation [address] [place] [address] 19317 Nadir Bourgeois MD [address] [place] [address] 66979 05/11/2025 7:15 AM EST Office Visit [facility] Rehabilitation [address] [place] [address] 77762 Nadir Bourgeois MD [address] [place] [address] 64677 05/13/2025 7:15 AM EST Office Visit [facility] Card[facility] Rehabilitation [address] [place] [address] Nadir Bourgeois MD [address] [place] [address] [phone] 05/16/2025 7:15 AM EST Office Visit [facility] Rehabilitation [address] [place] [address] 38688 Nadir Bourgeois MD [address] [place] [address] 01730 05/18/2025 7:15 AM EST Office Visit [facility] Card[facility] Rehabilitation [address] [place] [address] 61215 Nadir Bourgeois MD [address] [place] [address] [phone] 05/20/2025 7:15 AM EST Office Visit [facility] Card[facility] Rehabilitation [address] [place] [address] 97236 Nadir Bourgeois MD [address] [place] [address] 73909 05/23/2025 7:15 AM EST Office Visit [facility] Rehabilitation [address] [place] [address] 89889 Nadir Bourgeois MD [address] [place] [address] 45851 05/25/2025 7:15 AM EST Office Visit [facility] Card[facility] Rehabilitation [address] [place] [address] 10571 Nadir Bourgeois MD [address] [place] [address] 42619 05/27/2025 7:15 AM EST Office Visit [facility] Rehabilitation [address] [place] [address] Nadir Bourgeois MD [address] [place] [address] 41503 05/30/2025 7:15 AM EST Office Visit [facility] Rehabilitation [address] [place] [address] 28764 Nadir Bourgeois MD [address] [place] [address] 60408 06/01/2025 7:15 AM EST Office Visit [facility] Card[facility] Rehabilitation [address] [place] [address] 69[address] Nadir Bourgeois MD [address] [place] [address] 20130 06/03/2025 7:15 AM EST Office Visit [facility] Rehabilitation [address] [place] [address] Nadir Bourgeois MD [address] [place] [address] [phone] 08/23/2025 8:20 AM EST Office Visit [facility] [address], [address] [place] [address] Jaden Taveras MD [address] [place] [address] 90345 09/02/2025 8:40 AM EDT Office Visit [address] Floor, [address] [place] [address] Nadir Bourgeois MD [address] [place] [address] 63758 10/31/2025 10:15 AM EDT Appointment Echo Lab [address] [place] [address] Nadir Bourgeois MD [address] [place] [address] 11216 11/11/2025 11:20 AM EDT Office Visit [facility] [address] Floor, [address] [place] [address] Nadir Bourgeois MD [address] [place] [phone] documented as of this encounter Visit Diagnoses Not on filedocumented in this encounter Care Teams Receiving Distribution Station Operator Relationship Specialty Start Date End Date Taco Molina DO PCP - General Internal Medicine 11/11/17 01/25/25 Taco Molina DO [address] [place] [address] [place] [address] PCP - General Internal Medicine 01/26/25 documented as of this encounter Additional Source Comments The information contained in this document represents components of the legal health record. It is not the complete legal health record.[facility]
--- OUTSIDE RECORDS SUMMARY | 2025-03-16 18:12 | XMS_ITS | Encounter Summary ---
Author Organization [facility] Address [address] [facility] [address] [place] [address] Phone Care Team Providers Care Geometry Professor Name Role Phone Dilpiester Taco Travis DO Primary Care Provider [phone] Encounter Details Date Type Department Care Team (Late st Contact Info) Description 03/11/2025 Orders Only [facility] [address] [facility] [address]rd Floor, [address] [place] [address] Jaden Taveras MD [address] [place] [address] Social History Tobacco Use Types Packs/Day Years [...] Info) Description 12/27/2024 Procedure Pass Echo Lab [address] [place] [address] 03/18/2025 7:15 AM EDT Office Visit [facility] Cardiopulmonary Rehabilitation [address] [place] [address] Nadir Bourgeois MD [address] [place] [address] 08604 03/21/2025 7:15 AM EDT Office Visit [facility] Cardiopulmonary Rehabilitation [address] [place] [address] Nadir Bourgeois MD [address] [place] [address] 66358 03/23/2025 7:15 AM EDT Office Visit [facility] Cardiopulmonary Rehabilitation [address] [place] [address] Nadir Bourgeois MD [address] [place] [address] 63637 03/25/2025 7:15 AM EDT Office Visit [facility] Cardiopulmonary Rehabilitation [address] [place] [address] Nadir Bourgeois MD [address] [place] [address] 03687 03/28/2025 7:15 AM EDT Office Visit [facility] Cardiopulmonary Rehabilitation [address] [place] [address] Nadir Bourgeois MD [address] [place] [address] 43757 03/30/2025 7:15 AM EDT Office Visit [facility] Cardiopulmonary Rehabilitation [address] [place] [address] Nadir Bourgeois MD [address] [place] [address] 05944 04/01/2025 7:15 AM EDT Office Visit [facility] Cardiopulmonary Rehabilitation [address] [place] [address] 226[address] Nadir Bourgeois MD [address] [place] [address] 14559 04/04/2025 7:15 AM EDT Office Visit [facility] Cardiopulmonary Rehabilitation [address] [place] [address] 23648 Nadir Bourgeois MD [address] [place] [address] 00226 04/06/2025 7:15 AM EDT Office Visit [facility] Cardiopulmonary Rehabilitation [address] [place] [address] Nadir Bourgoeis MD [address] [place] [address] 51064 04/08/2025 7:15 AM EDT Office Visit [facility] Cardiopulmonary Rehabilitation [address] [place] [address] Nadir Bourgeois MD [address] [place] [address] 60439 04/11/2025 7:15 AM EDT Office Visit [facility] Cardiopulmonary Rehabilitation [address] [place] [address]91 Nadir Bourgeois MD [address] [place] [address] 25130 04/13/2025 7:15 AM EDT Office Visit [facility] Cardiopulmonary Rehabilitation [address] [place] [address] Nadir Bourgeois MD [address] [place] [address] 78458 04/15/2025 7:15 AM EDT Office Visit [facility] Cardiopulmonary Rehabilitation [address] [place] [address] 17809 Nadir Bourgeois MD [address] [place] [address] 29267 04/18/2025 7:15 AM EDT Office Visit [facility] Cardiopulmonary Rehabilitation [address] [place] [address] 64[address] Nadir Bourgeois MD [address] [place] [address] 10801 04/20/2025 7:15 AM EDT Office Visit [facility] Cardiopulmonary Rehabilitation [address] [place] [address] 40987 Nadir Bourgeois MD [address] [place] [address] 43229 04/20/2025 2:00 PM EDT Office Visit [facility] [address] [place] [address] 3rd Floor, [address] [place] [address] Macrina Pearson DNP [address] [place] [address], [address] [place] [address] 08094 04/22/2025 7:15 AM EDT Office Visit [facility] Cardiopulmonary Rehabilitation [address] [place] [address] 61727 Nadir Bourgeois MD [address] [place] [address] 98911 04/25/2025 7:15 AM EST Office Visit [facility] Cardiopulmonary Rehabilitation [address] [place] [address] 15216 Nadir Bourgeois MD [address] [place] [address] 69691 04/27/2025 7:15 AM EST Office Visit [facility] Cardiopulmonary Rehabilitation [address] [place] [address] 72802 Nadir Bourgeois MD [address] [place] [address] 01584 04/29/2025 7:15 AM EST Office Visit [facility] Cardiopulmonary Rehabilitation [address] [place] [address]35 Nadir Bourgeois MD [address] [place] [address] 41504 05/02/2025 7:15 AM EST Office Visit [facility] Cardiopulmonary Rehabilitation [address] [place] [address] 02228 Nadir Bourgeois MD [address] [place] [address] 69646 05/04/2025 7:15 AM EST Office Visit [facility] Cardiopulmonary Rehabilitation [address] [place] [address] 12330 Nadir Bourgeois MD [address] [place] [address] 82420 05/06/2025 7:15 AM EST Office Visit [facility] Cardiopulmonary Rehabilitation [address] [place] [address] 63[address] Ndair Bourgeois MD [address] [place] [address] 18776 05/09/2025 7:15 AM EST Office Visit [facility] Cardiopulmonary Rehabilitation [address] [place] [address] 68202 Nadir Bourgeois MD [address] [place] [address] 13551 05/11/2025 7:15 AM EST Office Visit [facility] Cardiopulmonary Rehabilitation [address] [place] [address] 85410 Nadir Bourgeois MD [address] [place] [address] 07730 05/13/2025 7:15 AM EST Office Visit [facility] Cardiopulmonary Rehabilitation [address] [place] [address] 82762 Nadir Bourgeois MD [address] [place] [address] 95185 05/16/2025 7:15 AM EST Office Visit [facility] Cardiopulmonary Rehabilitation [address] [place] [address] 78910 Nadir Bourgeois MD [address] [place] [address] 40347 05/18/2025 7:15 AM EST Office Visit [facility] Cardiopulmonary Rehabilitation [address] [place] [address] 76757 Nadir Bourgeois MD [address] [place] [address] 93631 05/20/2025 7:15 AM EST Office Visit [facility] Cardiopulmonary Rehabilitation [address] [place] [address] Nadir Bourgeois MD [address] [place] [address] 61237 05/23/2025 7:15 AM EST Office Visit [facility] Cardiopulmonary Rehabilitation [address] [place] [address] Nadir Bourgeois MD [address] [place] [address] 78681 05/25/2025 7:15 AM EST Office Visit [facility] Cardiopulmonary Rehabilitation [address] [place] [address] 41505 Nadir Bourgeois MD [address] [place] [address] 27727 05/27/2025 7:15 AM EST Office Visit [facility] Cardiopulmonary Rehabilitation [address] [place] [address] Nadir Bourgeois MD [address] [place] [address] 00970 05/30/2025 7:15 AM EST Office Visit [facility] Cardiopulmonary Rehabilitation [address] [place] [address] Nadir Bourgeois MD [address] [place] [address] 31773 06/01/2025 7:15 AM EST Office Visit [facility] Cardiopulmonary Rehabilitation [address] [place] [address] Nadir Bourgeois MD [address] [place] [address] 90356 06/03/2025 7:15 AM EST Office Visit [facility] Cardiopulmonary Rehabilitation [address] [place] [address] Nadir Bourgeois MD [address] [place] [address] 84722 08/23/2025 8:20 AM EST Office Visit [facility] [address] [place] [address], [address] [place] [address] Jaden Taveras MD [address] [place] [address] 70919 09/02/2025 8:40 AM EDT Office Visit [address], [address] [place] [address] 377[address] Ndair Bourgeois MD [address] [place] [address] 69683 10/31/2025 10:15 AM EDT Appointment Echo Lab [address] [address] Nadir Bourgeois MD [address] [place] [address] 08911 11/11/2025 11:20 AM EDT Office Visit [address] [place] [address], [address] [place] [address] Nadir Bourgeois MD [address] [place] [address] 50738 documented as of this encounter Visit Diagnoses Not on filedocumented in this encounter Additional Health Concerns Assessment Noted Time PHQ-9 Depression Total Score: 1 03/11/20 25 1:55 PM EDT documented as of this encounter Care Teams Geometry Professor Relationship Specialty Start Date End Date Taco Molina DO [address] [place] [address] [place] [address] [email or web address] PCP - General Internal Medicine 01/26/25 documented as of this encounter Additional Source Comments The information contained in this document represents components of the legal health record. It is not the complete legal health record.[facility]
--- OUTSIDE RECORDS SUMMARY | 2025-03-16 18:12 | XMS_ITS | Clinical Summary ---
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 Active tadalafiL (CIALIS) 5 MG tablet Take 5 mg by mouth daily. Active cyanocobalamin, vitamin B-12, (VITAMIN B12 ORAL) Take 1 tablet by mouth daily. Active MAGNESIUM ORAL Take 1 tablet by mouth daily. Active atorvastatin (LIPITOR) 20 MG tablet Take 1 tablet (20 mg total) by mouth daily. 90 tablet 3 5 Active aspirin 81 MG EC tablet Take 1 tablet (81 mg total) by mouth daily. 90 tablet 3 5 Active metoprolol succinate (TOPROL-XL) 25 MG 24 hr tablet Take 1 tablet (25 mg total) by mouth daily. 90 tablet 3 5 Active Additional Information Patient not taking.Reported on 02/18/2025 clopidogrel (PLAVIX) 75 mg tablet Take 1 tablet (75 mg total) by mouth daily. 90 tablet 3 5 Active metoprolol succinate (TOPROL-XL) 25 MG 24 hr tablet Take 1 tablet (25 mg total) by mouth daily. 90 tablet 3 5 Active ticagrelor (BRILINTA) 90 mg Tab Take 1 tablet (90 mg total) by mouth 2 (two) times a day. 180 tablet 3 5 Active BRILINTA 90 mg Tab Take 1 tablet (90 mg total) by mouth 2 (two) times a day. BRAND NAME ONLY 180 tablet 3 5 Active Active Problems Problem Noted Date Diagnosed Date Atherosclerosis of coronary artery 01/20/2025 Assessment & Plan (01/20/2025 10:40 AM EDT): Status post PCI of proximal LAD with 1 FAROOQ. Continue aspirin lifelong. Plavix for at least 1 year post PCI. Continue statin and additional medical therapy. Patient denies any symptoms concerning for angina at this time. Continue to optimize cardiovascular risk factors. Benign essential hypertension 01/20/2025 Assessment & Plan (01/20/2025 10:40 AM EDT): Continue current medications and doses. Continue lifestyle measures. Other hyperlipidemia 01/20/2025 Assessment & Plan (01/20/2025 10:40 AM EDT): Continue atorvastatin 20 mg daily. 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 Incision sites have healed up uneventfully. Patient is compliant with his medications. He declines a referral to cardiac rehab. He has not noticed a significant difference in his dyspnea of yet. He has an echocardiogram and follow-up already scheduled In 1 month. Encounters Date Type Department Care Team Description 03/16/2025 7:15 AM EDT Office Visit [facility] Cardiopulmonary Rehabilitation [address] [place] [address] Nadir Bourgeois MD S/P TAVR (transcatheter aortic valve replacement) (Primary Dx); Status post insertion of drug-eluting stent into left anterior descending (LAD) artery 03/14/2025 7:15 AM EDT Office Visit [facility] Cardiopulmonary Rehabilitation [address] [place] [address] Nadir Bourgeois MD S/P TAVR (transcatheter aortic valve replacement) (Primary Dx); Status post insertion of drug-eluting stent into left anterior descending (LAD) artery 03/11/2025 1:00 PM EDT Office Visit [facility] Cardiopulmonary [address] [address] Taco Molina DO S/P TAVR (transcatheter aortic valve replacement) (Primary Dx); Status post insertion of drug-eluting stent into left anterior descending (LAD) artery 03/11/2025 Plan of Care Documentation [facility] Cardiopulmonary [facility] [address] [place] [address] 03/11/2025 Orders Only [address] 3rd [facility], [address] [place] [address] Nadir Bourgeois MD Aortic valve disorder (Primary Dx) 03/11/2025 Orders Only [address] [facility], [address] [place] [address] Jaden Taveras MD 02/22/[address] 3rd Floor, [address] [place] [address] Nadir Bourgeois MD Medication Refill 02/18/2025 10:00 AM EDT Office Visit [address] [facility], [address] [place] [address] Nadir Bourgeois MD Aortic valve disorder (Primary Dx); Presence of prosthetic heart valve; Atherosclerosis of [place] coronary artery of [place] heart without angina pectoris; Benign essential hypertension; Other hyperlipidemia; CAD in [place] artery; Dyspnea, unspecified type; PVC (premature ventricular contraction); Hematoma 02/17/2025 1:40 PM EDT - 02/17/2025 11:59 PM EDT Hospital Encounter Echo Lab [address] [place] [address] Nadir Bourgeois MD Discharge Disposition: Home or Self Care 01/25/2025 7:39 AM EDT - 01/25/2025 11:59 PM EDT Hospital Encounter [facility] [address] [place] [address] Pippa Gr PA-C Discharge Disposition: Home or Self Care 01/18/2025 11:00 AM EDT Office Visit [facility] [address] [place] [address], [address] [place] [address] Pippa Gr PA-C Aortic valve disorder (Primary Dx); Atherosclerosis of [place] coronary artery of [place] heart without angina pectoris; Benign essential hypertension; Other hyperlipidemia 01/14/2025 7:35 AM EDT - 01/14/2025 11:59 PM EDT Hospital Encounter [facility] [address] [place] [address] Nadir Bourgeois MD Discharge Disposition: Home or Self Care 01/03/2025 Refill [facility] [address] [place] [address], [address] [place] [address] Keren Hutson MA Medication Refill 12/30/2024 Refill [facility] [address] [place] [address], [address] [place] [address] Joy Red MA Medication Refill 12/27/2024 Procedure Pass Echo [facility] [address] [place] [address] [place] [address] 12/27/2024 Orders Only [facility] [address] [place] [address], [address] [place] [address] Lesly Paz MA Aortic valve disorder (Primary Dx) 12/27/2024 Orders Only [facility] Myranda Jerdaly Miller [address] [place] [address], [address] [place] [address] Lesly Paz MA Aortic valve disorder (Primary Dx) 12/27/2024 Orders Only [facility] [address] [facility], [address] [place] [address] Lesly Paz MA Presence of prosthetic heart valve (Primary Dx) 12/27/2024 Orders Only [facility] [address] [place] [address], [address] [place] [address] Lesly Paz MA Presence of prosthetic heart valve (Primary Dx) from Last 3 Months Social History Tobacco Use Types Packs/Day Years [...] Orientation Straight 01/09/2022 2: 31 PM EDT Last Filed Vital Signs Vital Sign Reading Time Taken Comments Blood Pressure 134/70 03/11/2025 1:54 PM EDT Pulse 78 03/11/2025 1:54 PM EDT Temperature 36.8 C (98.2 F) 07/04/2022 10:39 AM EST Respiratory Rate 18 03/11/2025 1:54 PM EDT Oxygen Saturation 98% 03/11/2025 1:54 PM EDT Inhaled Oxygen Concentration - - Weight 77.1 kg (170 lb) 03/11/2025 1:54 PM EDT Height 177.8 cm (5' 10 ) 02/18/2025 9:51 AM EDT Body Mass Index 24.39 02/18/2025 9:51 AM EDT Plan of Treatment Upcoming Encounters Date Type Department Care Team (Late st Contact Info) Description 12/27/2024 Procedure Pass Echo Lab [address] [place] [address] 03/18/2025 7:15 AM EDT Office Visit [facility] Cardiopulmonary Rehabilitation [address] [place] [address] Nadir Bourgeois MD [address] [place] [address] 03/21/2025 7:15 AM EDT Office Visit [facility] Cardiopulmonary Rehabilitation [address] [place] [address] Nadir Bourgeois MD [address] [place] [address] 03/23/2025 7:15 AM EDT Office Visit [facility] Cardiopulmonary Rehabilitation [address] [place] [address] Nadir Bourgeois MD [address] [place] [address] 03/25/2025 7:15 AM EDT Office Visit [facility] Cardiopulmonary Rehabilitation [address] [place] [address] Nadir Bourgeois MD [address] [place] [address] 03/28/2025 7:15 AM EDT Office Visit [facility] Cardiopulmonary Rehabilitation [address] [place] [address] Nadir Bourgeois MD [address] [place] [address] 03/30/2025 7:15 AM EDT Office Visit [facility] Cardiopulmonary Rehabilitation [address] [place] [address] Nadir Bourgeois MD [address] [place] [address] 04/01/2025 7:15 AM EDT Office Visit [facility] Cardiopulmonary Rehabilitation [address] [place] [address] Nadir Bourgeois MD [address] [place] [phone] 04/04/2025 7:15 AM EDT Office Visit [facility] Cardiopulmonary Rehabilitation [address] [place] [address] Nadir Bourgeois MD [address] [place] [address] 04/06/2025 7:15 AM EDT Office Visit [facility] Cardiopulmonary Rehabilitation [address] [place] [address] Nadir Bourgeois MD [address] [place] [address] 04/08/2025 7:15 AM EDT Office Visit [facility] Cardiopulmonary Rehabilitation [address] [place] [address] Nadir Bourgeois MD [address] [place] [address] 04/11/2025 7:15 AM EDT Office Visit [facility] Cardiopulmonary Rehabilitation [address] [place] [address] Nadir Bourgeois MD [address] [place] [address] 04/13/2025 7:15 AM EDT Office Visit [facility] Cardiopulmonary Rehabilitation [address] [place] [phone] Nadir Bourgeois MD [address] [place] [address] 04/15/2025 7:15 AM EDT Office Visit [facility] Cardiopulmonary Rehabilitation [address] [place] [address] Nadir Bourgeois MD [address] [place] [address] 04/18/2025 7:15 AM EDT Office Visit [facility] Cardiopulmonary Rehabilitation [address] [place] [address] Nadir Bourgeois MD [address] [place] [address] 04/20/2025 7:15 AM EDT Office Visit [facility] Cardiopulmonary Rehabilitation [address] [place] [address] Nadir Bourgeois MD [address] [place] [phone] 04/20/2025 2:00 PM EDT Office Visit [facility] [address] [place] [address], [address] [address] Macrina Pearson DNP [address] [place] [address] 04/22/2025 7:15 AM EDT Office Visit [facility] Cardiopulmonary Rehabilitation [address] [place] [address] Nadir Bourgeois MD [address] [place] [address] 04/25/2025 7:15 AM EST Office Visit [facility] Cardiopulmonary Rehabilitation [address] [place] [address] Nadir Bourgeois MD [address] [place] [address] 04/27/2025 7:15 AM EST Office Visit [facility] Cardiopulmonary Rehabilitation [address] [place] [address] Nadir Bourgeois MD [address] [place] [address] 04/29/2025 7:15 AM EST Office Visit [facility] Cardiopulmonary Rehabilitation [address] [place] [address] Nadir Bourgeois MD [address] [place] [address] 05/02/2025 7:15 AM EST Office Visit [facility] Cardiopulmonary Rehabilitation [address] [place] [address] Nadir Bourgeois MD [address] [place] [address] 05/04/2025 7:15 AM EST Office Visit [facility] Cardiopulmonary Rehabilitation [address] [place] [address] Nadir Bourgeois MD [address] [place] [address] 284[address] 05/06/2025 7:15 AM EST Office Visit [facility] Cardiopulmonary Rehabilitation [address] [place] [address] Nadir Bourgeois MD [address] [place] [address] 05/09/2025 7:15 AM EST Office Visit [facility] Cardiopulmonary Rehabilitation [address] [place] [address] Nadir Bourgeois MD [address] [place] [address] 05/11/2025 7:15 AM EST Office Visit [facility] Cardiopulmonary Rehabilitation [address] [place] [address] Nadir Bourgeois MD [address] [place] [address] 05/13/2025 7:15 AM EST Office Visit [facility] Cardiopulmonary Rehabilitation [address] [place] [address] Nadir Bourgeois MD [address] [place] [address] 05/16/2025 7:15 AM EST Office Visit [facility] Cardiopulmonary Rehabilitation [address] [place] [address] Nadir Bourgeois MD [address] [place] [address] 05/18/2025 7:15 AM EST Office Visit [facility] Cardiopulmonary Rehabilitation [address] [place] [address] Nadir Bourgeois MD [address] [place] [address] 05/20/2025 7:15 AM EST Office Visit [facility] Cardiopulmonary Rehabilitation [address] [place] [address] Nadir Bourgeois MD [address] [place] [address] 05/23/2025 7:15 AM EST Office Visit [facility] Cardiopulmonary Rehabilitation [address] [place] [address] Nadir Bourgeois MD [address] [place] [address] 05/25/2025 7:15 AM EST Office Visit [facility] Cardiopulmonary Rehabilitation [address] [facility] [address] Nadir Bourgeois MD [address] [place] [address] 05/27/2025 7:15 AM EST Office Visit [facility] Cardiopulmonary Rehabilitation [address] [place] [address] Nadir Bourgeois MD [address] [place] [address] 05/30/2025 7:15 AM EST Office Visit [facility] Cardiopulmonary Rehabilitation [address] [place] [address] Nadir Bourgeois MD [address] [place] [address] 06/01/2025 7:15 AM EST Office Visit [facility] Cardiopulmonary Rehabilitation [address] [place] [address] Nadir Bourgeois MD [address] [place] [address] 06/03/2025 7:15 AM EST Office Visit [facility] Cardiopulmonary Rehabilitation [address] [place] [address] Nadir Bourgeois MD [address] [place] [address] 08/23/2025 8:20 AM EST Office Visit [facility] [address], [address] [place] [address] Jaden Taveras MD [address] [place] [address] 09/02/2025 8:40 AM EDT Office Visit [facility] [address], [address] [place] [address] Nadir Bourgeois MD [address] [place] [address] 10/31/2025 10:15 AM EDT Appointment Echo Lab [address] [place] [address] Nadir Bourgeois MD [address] [place] [address] 11/11/2025 11:20 AM EDT Office Visit [facility] [address], [address] [place] [address] Nadir Bourgeois MD [address] [place] [address] Health Maintenance Due Date Last Done Comments Adult Td,Tdap Booster 1940 ZOSTER VACCINES (1 of 2) 1992 PNEUMOCOCCAL VACCINES (50+ years) (2 of 2 - PPSV23) 03/22/2017 03/22/2016 INFLUENZA VACCINE (#1) 2025 , 03/25/2023, 04/03/2022, Additional history exists COVID-19 VACCINE ( season) 2025 04/05/2024, 03/25/2023, 04/07/2022, Additional history exists LIPID PANEL 06/08/2025 06/08/2024, 06/20/2020 BLOOD PRESSURE 09/08/2025 03/11/2025 CREATININE LEVEL 01/25/2026 01/25/2025, , 11/03/2024, Additional history exists POTASSIUM LEVEL 01/25/2026 01/25/2025, 12/22, 11/03/2024, Additional history exists DEPRESSION SCREENING 03/11/2026 03/11/2025 RSV VACCINE Completed 04/30/2023 HEPATITIS A VACCINES Aged Out No long er eligible based on patient's age to complete this topic HIB VACCINES Aged Out No longer eligi ble based on patient's age to complete this topic MENINGOCOCCAL VACCINES (ACWY) Aged Out No longer eligible based on patient's age to complete this topic MENINGOCOCCAL VACCINES (B) Aged Out N o longer eligible based on patient's age to complete this topic Medical Devices Not on file Procedures Procedure Name Priority Date/Time Associated Diagnosis Comments TTE COMPREHENSIVE Routine 02/17/2025 2:3 3 PM EDT Presence of prosthetic heart valve CBC Routine 01/25/2025 7:40 AM EDT Aortic valve disorder COMPREHENSIVE METABOLIC PANEL Routine 01/25/2025 7:40 AM EDT Aortic valve disorder CBC AND DIFFERENTIAL Routine 01/14/2025 7:35 AM EDT Aortic valve disorder BASIC METABOLIC PANEL Routine 01/14/2025 7:35 AM EDT Aortic valve disorder LIPID PANEL Routine 06/08/2024 7:47 AM EST Anemia, unspecified type Hypertension, essential from Last 3 Months or Most Recently Relevant to Health Maintenance Results * TTE COMPREHENSIVE (02/17/2025 2:33 PM EDT) Height 178 cm Weight 81 kg Interventricular Septum Thickness 13 6 - 11 mm Left Ventricle Internal Diameter End Diastole 42 42 - 58 mm Left Ventricle Internal Diameter End Systole 22 <40 mm Left Ventricular Outflow Tract Diameter 22.0 mm Left Ventricular Posterior Wall Thickness 12 6 - 11 mm Left Ventricle Ea Lateral Wave Speed 6.2 cm/s Left Ventricle Ea Septal Wave Speed 5.7 cm/s Ejection Fraction 87 50 - 75 Percent Left Atrium Dimension Anterior-Posterior 38 15 - 40 mm Aortic Valve Mean Gradient 12 mmHg Aortic Valve Time Velocity Integral 447.0 mm Aortic Valve Peak Velocity 2.3 m/s Aortic Valve Peak Gradient 22 mmHg Aortic Arch Diameter 25 mm Aortic Sinus Diameter 39 <40 mm Ascending Aorta Diameter 39 <36 mm Inferior Vena Cava Diameter 17 <21 mm Mitral Valve Deceleration Time 236 ms Left Ventricle A Wave Speed 136.0 cm/s Left Ventricle E Wave Speed 91.3 cm/s Mitral Valve Mean Gradient 4 mmHg Mitral Valve Peak Gradient 9 mmHg Mitral Valve Area Continuity Equation 2.60 cm2 Pulmonary Valve Peak Velocity 1.2 m/s Pulmonary Valve Peak Gradient 6 mmHg Right Ventricle Basal Diameter 37 25 - 41 mm Tricuspid Valve Peak Velocity 2.5 m/s Raw LV EF% 73 % MV E/E' Tissue Velocity Lateral 14.73 Relative Wall Thickness 0.57 0.22 - 0.42 MV E/A ratio 0.7 MV E/e' septal 16.02 Left Ventricle E/e' Average 15.4 Aortic Valve Prosthetic Peak Gradient 22 mmHg Aortic Valve Prosthetic Mean Gradient 12 mmHg Aorta Sinus Index by Height 2.19 cm/m Aorta Sinus CSA index by Height 6.71 cm2/m Asc Aorta CSA Index by Height 6.71 cm2/m Mitral Valve Prosthetic Peak Gradient 9 mmHg Mitral Valve Prosthetic Mean Gradient 4 mmHg Right Ventricle to Right Atrium Pressure Gradient 25 mmHg Right Ventricle Peak Systolic Pressure (Assuming RAP 10) 35 mmHg MGB CV ECHO TV RVSP (ASSUMING RAP OF 5) 30 mmHg RVSP (Exclusive of RAP) 25 mmHg Pulmonic Valve Prosthetic Peak Gradient 6 mmHg Echo E/Ea 16.02 Body Surface Area 1.99 m2 Left Ventricle indexed to BSA 95.1 g/m2 Left Ventricular Outflow Tract Velocity 1.2 m/s Right Atrium Area 20 cm2 Right Atrium Area index 10 cm2/m2 LVOT VTI REST 26.0 cm Aortic Valve Sinus Index by BSA 20 mm/m2 Ascending Aorta Index 20 mm/m2 MGB CV AV DIMENSIONLESS INDEX (PEAK) - STRESS ECHO DOBUT - REST 0.52 Ascending Aorta Index 20 mm Aortic Sinus Index 20 mm Ascending Aorta Diameter 20 mm Aortic Valve Sinus Index 1 20 20 - 32 mm AO ASC DIAM BSA INDEX 19.60 Anatomical Region Laterality Modality Heart Ultrasound Narrative 02/18/2025 10:18 AM EDT Images from the original result were not included. Normal left ventricular size, mild concentric LVH, normal LV systolic function with estimate ejection fraction of 60 to 65%. Impaired diastolic parameters with at least grade 1 diastolic dysfunction. Normal biatrial size. There is a 29 mm Duvall CINTHYA stent mounted bioprosthetic valve with mean gradient of 12 across the aortic valve and trace paravalvular regurgitation. Minimal mitral stenosis with mitral valve thickening and MAC. Pulmonary pressures could not be estimated. No pericardial effusion. Compared to prior study dated December 2024, patient is now status post TAVR with a well-functioning CINTHYA valve with trace to mild mild PVL. Left Ventricle The left ventricle is normal in size. There is mild concentric hypertrophy. There is normal left ventricular systolic function. The LV ejection fraction is 60-65% (visually estimated). LV diastolic function parameters are indeterminate in total. Right Ventricle The right ventricle is normal in size. There is normal right ventricular systolic function. Left Atrium The left atrium is normal in size. Right Atrium The right atrium is mildly dilated. The IVC is normal in size with normal inspiratory collapse. Mitral Valve There is mitral valve thickening. There is mitral annular calcification. There is mild mitral stenosis. There is mild mitral regurgitation. Tricuspid Valve The tricuspid valve appears normal. There is no tricuspid stenosis. There is mild tricuspid regurgitation. Aortic Valve There is a 29mm Duvall stent mounted bioprosthesis (TAVR). The aortic valve peak velocity is 2.3 m/s. The peak and mean aortic valve gradients are 22 mmHg and 12 mmHg respectively. There is trace paravalvular regurgitation. The aortic sinuses are dilated. The ascending aorta is dilated. Pulmonic Valve The pulmonic valve appears normal. There is no pulmonic stenosis. There is trace pulmonic regurgitation. Pericardium There is no pericardial effusion. General Findings The image quality was fair (3). Technique(s) used in the evaluation: Multiplane, Color flow Doppler, Spectral Doppler and Epiaortic scan. Comparison Findings Compared to prior TTE report on 01/03/2025, IAS/IVS The interatrial septum appears normal. There is no evidence of patent foramen ovale (PFO). The interventricular septum appears normal. Nadir Bourgeois MD CV ECHO ORDERABLES Final Result * (ABNORMAL) Comprehensive metabolic panel (01/25/2025 7:40 AM EDT) SODIUM 138 133 - 146 mmol/L [facility] POTASSIUM 4.7 3.3 - 5.1 mmol/L [facility] CHLORIDE 104 96 - 108 mmol/L [facility] CO2 22 21 - 35 mmol/L [facility] BUN 25(H) 6 - 19 mg/dL [facility] CREATININE 0.80 0.5 - 1.5 mg/dL [facility] GLUCOSE 98 70 - 99 mg/dL [facility] ALBUMIN 4.2 3.9 - 4.8 g/dL [facility] TOTAL PROTEIN 6.9 6.5 - 8.0 g/dL [facility] CALCIUM 9.3 8.4 - 10.3 mg/dL [facility] ALKALINE PHOSPHATASE 63 39 - 117 U/L [facility] TOTAL BILIRUBIN 0.8 0.0 - 1.2 mg/dL [facility] AST 35 0 - 37 U/L [facility] ALT 21 0 - 40 U/L [facility] GLOBULIN 2.7 1 - 4.8 g/dL [facility] EGFR 88 >59 mL/min/1.7 3m2 [facility] Comment:Estimated glomerular filtration rate calculated using the CKD-EPI refit equation. ANION GAP 17 10 - 20 mmol/L [facility] Blood 01/25/2025 7:40 AM EDT 01/25/2025 7:43 AM EDT us Pippa Gr PA-C LAB BLOOD ORDERABLES Final R esult [facility] [address] [place] [address] * (ABNORMAL) CBC (01/25/2025 7:40 AM EDT) WBC 7.99 4.00 - 11.00 K/uL [facility] RBC 3.56(L) 4.50 - 5.90 M/uL [facility] HGB 11.5(L) 13.5 - 17.5 g/dL [facility] HCT 35.5(L) 41.0 - 53.0 % [facility] PLT 196 150 - 450 K/uL [facility] MCV 99.7 80.0 - 100.0 fL [facility] MCH 32.3(H) 27.0 - 31.0 pg [facility] MCHC 32.4 32.0 - 36.0 g/dL [facility] RDW 14.1 11.5 - 14.5 % [facility] MPV 10.0 8.4 - 12.0 fL [facility] NRBC 0.00 0.00 /100 WBCs [facility] ABSOLUTE NRBC 0.00 0.00 K/uL [facility] Blood 01/25/2025 7:40 AM EDT 01/25/2025 7:43 AM EDT us Pippa Gr PA-C LAB BLOOD ORDERABLES Final R esult [facility] [address] [place] [address] * (ABNORMAL) CBC and differential (01/14/2025 7:35 AM EDT) WBC 8.96 4.00 - 11.00 K/uL [facility] RBC 3.60(L) 4.50 - 5.90 M/uL [facility] HGB 11.7(L) 13.5 - 17.5 g/dL [facility] HCT 35.4(L) 41.0 - 53.0 % [facility] PLT 247 150 - 450 K/uL [facility] MCV 98.3 80.0 - 100.0 fL [facility] MCH 32.5(H) 27.0 - 31.0 pg [facility] MCHC 33.1 32.0 - 36.0 g/dL [facility] RDW 13.8 11.5 - 14.5 % [facility] MPV 9.8 8.4 - 12.0 fL [facility] NRBC 0.20(H) 0.00 /100 WBCs [facility] ABSOLUTE NRBC 0.02(H) 0.00 K/uL [facility] DIFF METHOD Auto [facility] NEUTS 67.9 48.0 - 76.0 % [facility] LYMPHS 19.4 18.0 - 41.0 % [facility] MONOS 8.4 4.0 - 11.0 % [facility] EOS 3.3 0.0 - 5.0 % [facility] BASOS 0.6 0.0 - 1.5 % [facility] Granulocytes, immature (%) 0.4 0.0 - 0.9 % [facility] ABSOLUTE NEUTS 6.08 1.92 - 7.60 K/uL [facility] ABSOLUTE LYMPHS 1.74 0.72 - 4.10 K/uL [facility] ABSOLUTE MONOS 0.75 0.16 - 1.10 K/uL [facility] ABSOLUTE EOS 0.30 0.00 - 0.50 K/uL [facility] ABSOLUTE BASOS 0.05 0.00 - 0.15 K/uL [facility] Granulocytes, immature 0.04 0.00 - 0.09 K/uL [facility] Blood 01/14/2025 7:35 AM EDT 01/14/2025 7:38 AM EDT Nadir Bourgeois MD LAB BLOOD ORDERABLES Final Resu lt Performing Organization Address City/[facility]/ZIP Co de Phone Number [address] [address] * (ABNORMAL) Basic metabolic panel (01/14/2025 7:35 AM EDT) SODIUM 133 133 - 146 mmol/L [facility] CHLORIDE 99 96 - 108 mmol/L [facility] POTASSIUM 4.4 3.3 - 5.1 mmol/L [facility] CO2 22 21 - 35 mmol/L [facility] BUN 18 6 - 19 mg/dL [facility] CREATININE 0.80 0.5 - 1.5 mg/dL [facility] GLUCOSE 102(H) 70 - 99 mg/dL [facility] CALCIUM 9.2 8.4 - 10.3 mg/dL [facility] EGFR 88 >59 mL/min/1.7 3m2 [facility] Comment:Estimated glomerular filtration rate calculated using the CKD-EPI refit equation. ANION GAP 16 10 - 20 mmol/L [facility] Blood 01/14/2025 7:35 AM EDT 01/14/2025 7:38 AM EDT us Nadir Bourgeois MD LAB BLOOD ORDERABLES Final Resu lt [address] [address] * (ABNORMAL) Lipid panel (06/08/2024 7:47 AM EST) HDL 88 mg/dL [facility] Comment: Interpretation <40 mg/dL: Low HDL cholesterol (major risk factor for CHD) Greater than or equal to 60 mg/dL: High HDL cholesterol ( negative risk factor for CHD) HDL - cholesterol is affected by a number of factors, e.g. smoking, excerise, hormones, sex and age. CHOLESTEROL 185 0 - 240 mg/dL [facility] TRIGLYCERIDES 57 30 - 160 mg/dL [facility] LDL 86 50 - 129 mg/dL [facility] Comment: LDL levels in terms of risk for coronary heart disease: <100 mg/dL: Optimal 100-129 mg/dL: Near or above optimal 130-159 mg/dL: Borderline high 160-189 mg/dL: High >190 mg/dL: Very High CARDIAC RISK RATIO 2.1(L) 3.4 - 5.0 [facility] Blood 06/08/2024 7:47 AM EST 06/08/2024 7:51 AM EST us Taco Molina DO LAB BLOOD ORDERABLES Final Resul t [facility] [address] [place] [address] from Last 3 Months or Most Recently Relevant to Health Maintenance Insurance [employer] SU[employer]LEMENT MEDICARE PART A & B [employer] MEDEX SUPPLEMENT MEDICARE PART A & B [employer] SUPP[employer]MENT MEDICARE PART A & B [employer] MEDEX SUPPLEMENT MEDICARE PART A & B [employer] MEDEX SUPPLEMENT MEDICARE PART A & B [employer] SUPPLEMENT MEDICARE PART A & B [employer] SUPPLEMENT MEDICARE PART A & B [employer] SUPPLEMENT MEDICARE PART A & B [employer] MEDICARE PART A & B Care Teams Fuel Truck Driver Relationship Specialty Start Date End Date Taco Molina DO [address] [place] [phone] PCP - General Internal Medicine 01/26/25 Additional Source Comments The information contained in this document represents components of the legal health record. It is not the complete legal health record.[facility]
--- OUTSIDE RECORDS SUMMARY | 2025-03-16 18:12 | XMS_ITS | Encounter Summary ---
Author Organization [facility] Address [address] [facility] [address] [place] [address] Phone Care Team Providers Care Improvement Engineer Name Role Phone Taco Molina DO Primary Care Provider [phone] Taco Molina DO Primary Care Provider [phone] Encounter Details Date Type Department Care Team (Late st Contact Info) Description 05/13/2022 Transcribe Orders [facility] [address] [place] [address] Taco Molina DO [address] [facility] [place] [address] [place] [address] [email or web address] Social History Tobacco Use Types Packs/Day Years [...] 12/27/2024 Procedure Pass Echo [facility] [address] [place] [address] 03/18/2025 7:15 AM EDT Office Visit [facility] [address] [place] [address] Nadir Bourgeois MD [address] [place] [address] 03/21/2025 7:15 AM EDT Office Visit [facility] Cardiopulmonary Rehabilitation [address] [place] [address] Nadir Bourgeois MD [address] [place] [address] 267[address] 03/23/2025 7:15 AM EDT Office Visit [facility] Cardiopulmonary Rehabilitation [address] [place] [address] Nadir Bourgeois MD [address] [place] [address] 50419 03/25/2025 7:15 AM EDT Office Visit [facility] Cardiopulmonary Rehabilitation [address] [place] [address] Nadir Bourgeois MD [address] [place] [address] 32949 03/28/2025 7:15 AM EDT Office Visit [facility] Cardiopulmonary Rehabilitation [address] [place] [address] Nadir Bourgeois MD [address] [place] [address] 84[address] 03/30/2025 7:15 AM EDT Office Visit [facility] Cardiopulmonary Rehabilitation [address] [place] [address] Nadir Bourgeois MD [address] [place] [address] 025[address] 04/01/2025 7:15 AM EDT Office Visit [facility] Cardiopulmonary Rehabilitation [address] [place] [address] Nadir Bourgeois MD [address] [place] [address] 12[address] 04/04/2025 7:15 AM EDT Office Visit [facility] Cardiopulmonary Rehabilitation [address] [place] [address] Nadir Bourgeois MD [address] [place] [address] 04/06/2025 7:15 AM EDT Office Visit [facility] Cardiopulmonary Rehabilitation [address] [place] [address] Nadir Bourgeois MD [address] [place] [address] 86679 04/08/2025 7:15 AM EDT Office Visit [facility] Cardiopulmonary Rehabilitation [address] [place] [address] Nadir Bourgeois MD [address] [place] [address] 739[address] 04/11/2025 7:15 AM EDT Office Visit [facility] Cardiopulmonary Rehabilitation [address] [place] [address] Nadir Bourgeois MD [address] [place] [address] 916[address] 04/13/2025 7:15 AM EDT Office Visit [facility] Cardiopulmonary Rehabilitation [address] [place] [address] Nadir Bourgeois MD [address] [place] [address] 01440 04/15/2025 7:15 AM EDT Office Visit [facility] Cardiopulmonary Rehabilitation [address] [place] [address] Nadir Bourgeois MD [address] [place] [address] 79193 04/18/2025 7:15 AM EDT Office Visit [facility] Cardiopulmonary Rehabilitation [address] [place] [address] Nadir Bourgeois MD [address] [place] [address] 98806 04/20/2025 7:15 AM EDT Office Visit [facility] Cardiopulmonary Rehabilitation [address] [place] [address] Nadir Bourgeois MD [address] [place] [address] 70942 04/20/2025 2:00 PM EDT Office Visit [facility] [address] [place] [address], [address] [address] Macrina Pearson DNP [address] [place] [address] 04/22/2025 7:15 AM EDT Office Visit [facility] Cardiopulmonary Rehabilitation [address] [place] [address] Nadir Bourgeois MD [address] [place] [address] 70[address] 04/25/2025 7:15 AM EST Office Visit [facility] Cardiopulmonary Rehabilitation [address] [place] [address] Nadir Bourgeois MD [address] [place] [address] 41901 04/27/2025 7:15 AM EST Office Visit [facility] Cardiopulmonary Rehabilitation [address] [place] [address] Nadir Bourgeois MD [address] [place] [address] 78635 04/29/2025 7:15 AM EST Office Visit [facility] Cardiopulmonary Rehabilitation [address] [place] [address] Nadir Bourgeois MD [address] [place] [address] 31118 05/02/2025 7:15 AM EST Office Visit [facility] Cardiopulmonary Rehabilitation [address] [place] [address] Nadir Bourgeois MD [address] [place] [address] 78732 05/04/2025 7:15 AM EST Office Visit [facility] Cardiopulmonary Rehabilitation [address] [place] [address] Nadir Bourgeois MD [address] [place] [address] 48547 05/06/2025 7:15 AM EST Office Visit [facility] Cardiopulmonary Rehabilitation [address] [place] [address] Nadir Bourgeois MD [address] [place] [address] 85694 05/09/2025 7:15 AM EST Office Visit [facility] Cardiopulmonary Rehabilitation [address] [place] [address] Nadir Bourgeois MD [address] [place] [address] 56662 05/11/2025 7:15 AM EST Office Visit [facility] Cardiopulmonary Rehabilitation [address] [place] [address] Nadir Bourgeois MD [address] [place] [address] 83454 05/13/2025 7:15 AM EST Office Visit [facility] Cardiopulmonary Rehabilitation [address] [place] [address] Nadir Bourgeois MD [address] [place] [address] 24935 05/16/2025 7:15 AM EST Office Visit [facility] Cardiopulmonary Rehabilitation [address] [place] [address] Nadir Bourgeois MD [address] [place] [address] 17914 05/18/2025 7:15 AM EST Office Visit [facility] Cardiopulmonary Rehabilitation [address] [place] [address] Nadir Bourgeois MD [address] [place] [address] 08347 05/20/2025 7:15 AM EST Office Visit [facility] Cardiopulmonary Rehabilitation [address] [place] [address] Nadir Bourgeois MD [address] [place] [address] 70391 05/23/2025 7:15 AM EST Office Visit [facility] Cardiopulmonary Rehabilitation [address] [place] [address] Nadir Bourgeois MD [address] [place] [address] 87994 05/25/2025 7:15 AM EST Office Visit [facility] Cardiopulmonary Rehabilitation [address] [place] [address] Nadir Bourgeois MD [address] [place] [address] 11403 05/27/2025 7:15 AM EST Office Visit [facility] Cardiopulmonary Rehabilitation [address] [place] [address] Nadir Bourgeois MD [address] [place] [address] 89259 05/30/2025 7:15 AM EST Office Visit [facility] Cardiopulmonary Rehabilitation [address] [place] [address] Nadir Bourgeois MD [address] [place] [address] 28039 06/01/2025 7:15 AM EST Office Visit [facility] Cardiopulmonary Rehabilitation [address] [place] [address] Nadir Bourgeois MD [address] [place] [address] 27[address] 06/03/2025 7:15 AM EST Office Visit [facility] Cardiopulmonary Rehabilitation [address] [place] [address] Nadir Bourgeois MD [address] [place] [address] 28742 08/23/2025 8:20 AM EST Office Visit [facility] [address] [place] [address] 3rd Floor, [address] [place] [address] Jaden Taveras MD [address] [place] [address] 09/02/2025 8:40 AM EDT Office Visit [facility] [address] [facility] 3rd Floor, [address] [place] [address] Nadir Bourgeois MD [address] [place] [address] [email or web address] 10/31/2025 10:15 AM EDT Appointment [facility] [place] [place] [address] Nadir Bourgeois MD [address] [place] [address] 11/11/2025 11:20 AM EDT Office Visit [facility] [address] 3rd Floor, [address] [place] [address] Nadir Bourgeois MD [address] [place] [address] [email or web address] documented as of this encounter Visit Diagnoses Not on filedocumented in this encounter Care Teams Improvement Engineer Relationship Specialty Start Date End Date Taco Molina DO [email or web address] PCP - General Internal Medicine 11/11/17 01/25/25 Taco Molina DO [address] [place] [address] [place] [address] [email or web address] PCP - General Internal Medicine 01/26/25 documented as of this encounter Additional Source Comments The information contained in this document represents components of the legal health record. It is not the complete legal health record.[facility]
--- OUTSIDE RECORDS SUMMARY | 2025-03-16 18:12 | XMS_ITS | Encounter Summary ---
Author Organization [facility] Address [address] [place] [address] [place] [address] Phone Care Team Providers Care Director Motion Picture Name Role Phone Taco Molina Primary Care Provider [phone] Dilip[employer]aco norman Primary Care Provider [phone] Encounter Details Date Type Department Care Team (Late st Contact Info) Description 09/23/2024 Procedure Pass [facility] [address] [place] [address] Social History Tobacco Use Types Packs/Day Years [...] Info) Description 12/27/2024 Procedure Pass [facility] [address] [place] [address] 03/18/2025 7:15 AM EDT Office Visit [facility] Cardiopulmonary Rehabilitation [address] [place] [address] Nadir Bourgeois MD [address] [place] [address] 97[address] 03/21/2025 7:15 AM EDT Office Visit [facility] Cardiopulmonary [address] [address] Nadir Bourgeois MD [address] [place] [address] 913[address] 03/23/2025 7:15 AM EDT Office Visit [facility] Cardiopulmonary Rehabilitation [address] [place] [address] Nadir Bourgeois MD [address] [place] [address] 788[address] 03/25/2025 7:15 AM EDT Office Visit [facility] Cardiopulmonary Rehabilitation [address] [place] [address] Nadir Bourgeois MD [address] [place] [address] 95338 03/28/2025 7:15 AM EDT Office Visit [facility] Cardiopulmonary Rehabilitation [address] [place] [address] Nadir Bourgeois MD [address] [place] [address] 76250 03/30/2025 7:15 AM EDT Office Visit [facility] Cardiopulmonary Rehabilitation [address] [place] [address] Nadir Bourgeois MD [address] [place] [address] 35287 04/01/2025 7:15 AM EDT Office Visit [facility] Cardiopulmonary Rehabilitation [address] [place] [address] Nadir Bourgeois MD [address] [place] [address] 59549 04/04/2025 7:15 AM EDT Office Visit [facility] Cardiopulmonary Rehabilitation [address] [place] [address] Nadir Bourgeois MD [address] [place] [address] 69072 04/06/2025 7:15 AM EDT Office Visit [facility] Cardiopulmonary Rehabilitation [address] [place] [address] Nadir Bourgeois MD [address] [place] [address] 10947 04/08/2025 7:15 AM EDT Office Visit [facility] Cardiopulmonary Rehabilitation [address] [place] [address] Nadir Bourgeois MD [address] [place] [address] 28552 04/11/2025 7:15 AM EDT Office Visit [facility] Cardiopulmonary Rehabilitation [address] [place] [address] Nadir Bourgeois MD [address] [place] [address] 70282 04/13/2025 7:15 AM EDT Office Visit [facility] Cardiopulmonary Rehabilitation [address] [place] [address] Nadir Bourgeois MD [address] [place] [address] 13551 04/15/2025 7:15 AM EDT Office Visit [facility] Cardiopulmonary Rehabilitation [address] [place] [address] Nadir Bourgeois MD [address] [place] [address] 40986 04/18/2025 7:15 AM EDT Office Visit [facility] Cardiopulmonary Rehabilitation [address] [place] [address] Nadir Bourgeois MD [address] [place] [address] 95710 04/20/2025 7:15 AM EDT Office Visit [facility] Cardiopulmonary Rehabilitation [address] [place] [address] Nadir Bourgeois MD [address] [place] [address] 35855 04/20/2025 2:00 PM EDT Office Visit [facility] [address] [place] [address] 3rd Floor, [address] [place] [address] Macrina Pearson DNP [address] [place] [address] 65[address] 04/22/2025 7:15 AM EDT Office Visit [facility] Cardiopulmonary Rehabilitation [address] [place] [address] Nadir Bourgeois MD [address] [place] [address] 01468 04/25/2025 7:15 AM EST Office Visit [facility] Cardiop[facility] Rehabilitation [address] [place] [address] Nadir Bourgeois MD [address] [place] [address] 93982 04/27/2025 7:15 AM EST Office Visit [facility] Cardiopulmonary Rehabilitation [address] [place] [address] Nadir Bourgeois MD [address] [place] [address] 81553 04/29/2025 7:15 AM EST Office Visit [facility] Cardiopulmonary Rehabilitation [address] [place] [address] Nadir Bourgeois MD [address] [place] [address] 51173 05/02/2025 7:15 AM EST Office Visit [facility] Card[facility] Rehabilitation [address] [place] [address] Nadir Bourgeois MD [address] [place] [address] 74590 05/04/2025 7:15 AM EST Office Visit [facility] Card[facility] Rehabilitation [address] [place] [address] Nadir Bourgeois MD [address] [place] [address] 39819 05/06/2025 7:15 AM EST Office Visit [facility] Card[facility] Rehabilitation [address] [place] [address] Nadir Bourgeois MD [address] [place] [address] 24860 05/09/2025 7:15 AM EST Office Visit [facility] Cardiop[facility] Rehabilitation [address] [place] [address] Nadir Bourgeois MD [address] [place] [address] 05254 05/11/2025 7:15 AM EST Office Visit [facility] Cardiopulmonary Rehabilitation [address] [place] [address] Nadir Bourgeois MD [address] [place] [address] 15768 05/13/2025 7:15 AM EST Office Visit [facility] Cardiopulmonary Rehabilitation [address] [place] [address] Nadir Bourgeois MD [address] [place] [address] 30394 05/16/2025 7:15 AM EST Office Visit [facility] Cardiopulmonary Rehabilitation [address] [place] [address] Nadir Bourgeois MD [address] [place] [address] 54489 05/18/2025 7:15 AM EST Office Visit [facility] Cardiop[facility] Rehabilitation [address] [place] [address] Nadir Bourgeois MD [address] [place] [address] 85865 05/20/2025 7:15 AM EST Office Visit [facility] Cardiopulmonary Rehabilitation [address] [place] [address] Nadir Bourgeois MD [address] [place] [address] 93616 05/23/2025 7:15 AM EST Office Visit [facility] Cardiopulmonary Rehabilitation [address] [place] [address] Nadir Bourgeois MD [address] [place] [address] 31305 05/25/2025 7:15 AM EST Office Visit [facility] Cardiopulmonary Rehabilitation [address] [place] [address] Nadir Bourgeois MD [address] [place] [address] 51539 05/27/2025 7:15 AM EST Office Visit [facility] Cardiopulmonary Rehabilitation [address] [place] [address] Nadir Bourgeois MD [address] [place] [address] 90242 05/30/2025 7:15 AM EST Office Visit [facility] Cardiopulmonary Rehabilitation [address] [place] [address] Nadir Bourgeois MD [address] [place] [address] 20789 06/01/2025 7:15 AM EST Office Visit [facility] Cardiopulmonary Rehabilitation [address] [place] [address] Nadir Bourgeois MD [address] [place] [address] 30397 06/03/2025 7:15 AM EST Office Visit [facility] Cardiop[facility] Rehabilitation [address] [place] [address] Nadir Bourgeois MD [address] [place] [address] 72356 08/23/2025 8:20 AM EST [facility] Visit [facility] [address] [place] [address], [address] [place] [address] Jaden Taveras MD [address] [place] [address] 22961 09/02/2025 8:40 AM EDT Office Visit [address], [address] [place] [address] Nadir Bourgeois MD [address] [place] [address] 02443 10/31/2025 10:15 AM EDT Appointment [facility] [address] [place] [address] Nadir Bourgeois MD [address] [place] [address] 48757 11/11/2025 11:20 AM EDT Office Visit [address], [address] [place] [address] Nadir Bourgeois MD [address] [place] [address] documented as of this encounter Visit Diagnoses Not on filedocumented in this encounter Care Teams Director Motion Picture Relationship Specialty Start Date End Date Taco Molina DO PCP - General Internal Medicine 11/11/17 01/25/25 Taco Molina DO [address] [place] [address] [place] [address] [email or web address] PCP - General Internal Medicine 01/26/25 documented as of this encounter Additional Source Comments The information contained in this document represents components of the legal health record. It is not the complete legal health record.[facility]
[2025-03-16 18:55] LABS: CDiff Gene PCR NEGATIVE (Negative)
[2025-03-17 11:22] LABS: E. coli EAEC Not Detected (Not Detect.); E. coli EPEC Not Detected (Not Detect.); E. coli ETEC Not Detected (Not Detect.); E. coli STEC Not Detected (Not Detect.); Shigella sp./EIEC Not Detected (Not Detect.)
== END 2025-03-16 18:05 | disposition home or self-care (01) ==
LOC: HO.MANLNP 18:04
PROVIDERS: Visit Provider Internal Medicine
DX: K52.9 Noninfective gastroenteritis and colitis, unspecified (principal)
CPT/HCPCS: 87177; 87209; 87493; 87507